=== PATIENT | female | born 1975 | race Caucasian/White ===

== ENCOUNTER 2018-05-07 13:40 | Outpatient (CLI) | payer BC ==
[2018-05-07 14:26] LABS: Appearance,Urine Turbid (Clear); Bilirubin,Urine Negative (Negative); Color,Urine Dark Yellow; Glucose,Urine (UA) Negative (Negative); Ketones,Urine Negative (Negative); Protein,Urine 1+ (Negative); Specific Gravity,Urine 1.019 (1.001-1.035)
[2018-05-07 14:27] LABS: Bacteria,Urine Many /hpf; Blood,Urine Trace (Negative); Calcium Oxalate Crystals,Urine Occasional /hpf; Leukocyte Esterase,Urine Large (Negative); Mucus,Urine Moderate /hpf; Nitrite,Urine Negative (Negative); RBC,Urine 16 /hpf (0-5); Squamous Epithelial Cell,Urine 14 /hpf (0-4); WBC,Urine 88 /hpf (0-5)
[2018-05-07 15:34] LABS: ALT 27 U/L (9-52); AST 23 U/L (14-36); Blood Urea Nitrogen 12 mg/dL (7-17); LDH 515 U/L (313-618); Uric Acid 5.4 mg/dL (3.7-7.4)
[2018-05-07 15:36] LABS: Basophils % (A) 0 %; Eosinophils # (A) 0.1 k/uL (0-0.7); Eosinophils % (A) 0 %; HCT 29.1 % (34.0-46.0); HGB 9.7 gm/dL (11.4-16.0); Lymphocytes # (A) 2.5 k/uL (1.0-4.8); Lymphocytes % (A) 17 %; MCHC 33.1 g/dL (31.0-37.0); MCV 90.7 fL (80.0-100.0); Mean Platelet Volume 7.6; Monocytes # (A) 0.5 k/uL (0-1.0); Monocytes % (A) 3 %; Neutrophils # (A) 11.5 k/uL (1.3-7.7); Neutrophils % (A) 78 %; Platelet Count 375 k/uL (150-450); RBC 3.21 m/uL (3.80-5.40); RDW 14.5 % (11.5-15.5); WBC 14.7 k/uL (3.8-10.6)
[2018-05-07 15:45] VITALS: BP 168/93; PULSE 85; RESP 18; TEMP 98.6
--- NOTE | 2018-05-07 15:53 | US ---
EXAMINATION TYPE: US OB >= 14 wk fetus DATE OF EXAM: 05/07/2018 COMPARISON: None CLINICAL HISTORY: elevated blood pressures, methadone treatment Growth, HTN TECHNIQUE: Transabdominal (TA) GESTATIONAL AGE / DATING Physician Established: (33 weeks/4 days) EDC: 06/21/2018 Dates by Current Scan: (31 weeks/6 days) EDC: 07/03/2018 Beta HCG (if available): Not available at this time SURVEY IUP: Single PLACENTA: Posterior PREVIA: No Previa JO ANN: 16.8 cm Normal CERVICAL LENGTH (transabdominal: norm > 3.0cm): 3.0 cm BIOMETRY PRESENTATION: Vertex LIE: Longitudinal BPD: 8.3 cm 33 weeks / 2 days HC: 29.2 cm 32 weeks / 1 days AC: 28.4 cm 32 weeks / 3 days FL: 6.1 cm 31 weeks / 4 days ESTIMATED WEIGHT IN GRAMS: 1927 grams ESTIMATED WEIGHT IN LBS/OZ: 4 lbs. 4 oz. WEIGHT PERCENTAGE BASED ON ESTABLISHED DATES: 10.9% HC/AC: 1.0 Normal FL/AC: 21.5 Normal HEART RATE: 159 bpm RHYTHM: Normal Single live IUP measuring 31 weeks 6 days. Debris seen within amniotic fluid. IMPRESSION: 1. Single intrauterine gestation in the cephalic presentation estimated at 31 weeks 6 days gestation based on the current ultrasound measurements. 2. Debris-filled amniotic fluid. 3. Cardiac activity measures 159 bpm.
[2018-05-07 16:01] LABS: Amphetamine Screen,Urine Not Detected (NotDetected); Barbiturate Screen,Urine Not Detected (NotDetected); Benzodiazepines Screen,Urine Not Detected (NotDetected); Cocaine Screen,Urine Not Detected (NotDetected); Methadone Screen, Urine Detected (NotDetected); Opiate Screen,Urine Not Detected (NotDetected); Oxycodone Screen, Urine Not Detected (NotDetected); Phencyclidine Screen,Urine Not Detected (NotDetected); Tricyclic Antidepressant,Urine Not Detected (NotDetected); Urn Cannabinoid Scrn Not Detected (NotDetected)
--- NOTE | 2018-05-07 17:44 | P.HPOB ---
History of Present Illness H&P Date: 05/07/18 Chief Complaint: Elevated blood pressure This is a 42-year-old female 1 para 0 with an estimated date of confinement of 06/21/2018, estimated gestational age of 33-4/7 weeks, who presented to labor and delivery triage complaining of elevated blood pressures today. She states her blood pressure was approximately 180/100 at [facility] where she is in treatment on methadone for opioid addiction. She was seen a doctor at [facility] [place] up until about 3 weeks ago and did not have any elevated blood pressures during her care that were significant. She does state she is chronically hypertensive and was on lisinopril prior to . She stopped this when she found out she was . She denies any headaches or blurry vision. She does complain of some nausea and vomiting recently and has been taking Zofran the last couple days for this. She also is on Keflex for a head cold for the last 2 days. Blood work was obtained in triage and all of her labs for preeclampsia were negative. Ultrasound was performed which showed a fetus in the vertex presentation with an estimated weight of 1927 g or 4 lbs. 4 oz. which is at 10.9 percentile. Her fluid level was 16.8 cm with some debris noted within. Since she has been in [place] she did see a nurse at a clinic here in town but has not seen a doctor yet. She is scheduled to see Dr. Gonzalez next Friday. I spoke with Dr. Guadalupe at [facility] in [place] and he has accepted transfer of the patient. He did not feel she needed to be on any medication prior to transfer. Obstetrical history: . Review of Systems Constitutional: Denies chills, Denies fever Eyes: denies blurred vision, denies pain Cardiovascular: Denies chest pain, Denies shortness of breath Respiratory: Denies cough Gastrointestinal: Reports nausea, Reports vomiting Integumentary: Denies pruritus, Denies rash Neurological: Denies numbness, Denies weakness Past Medical History Additional Past Medical History / Comment(s): History of opioid addiction. She was addicted to Vicodin for 10 years but has been on Suboxone since 2009. She was recently started on methadone when she was admitted to [facility]. History of Any Multi-Drug Resistant Organisms: None Reported Additional Past Surgical History / Comment(s): Lithotripsy, back surgery, craniotomy due to brain swelling Smoking Status: Current every day smoker Past Alcohol Use History: None Reported Past Drug Use History: Opiates Medications and Allergies Home Medications Medication Instructions Recorded Confirmed Type Aspirin [Children's Aspirin] 81 mg PO DAILY 05/07/18 05/07/18 History Cephalexin [Keflex] 500 mg PO AC-TID 05/07/18 05/07/18 History Ondansetron [Zofran] 4 mg PO Q8HR PRN MDD nausea 05/07/18 05/07/18 History RX: Methadone [Dolophine] 70 mg PO DAILY 05/07/18 05/07/18 History Allergies Allergy/AdvReac Type Severity Reaction Status Date / Time codeine AdvReac Nausea & Verified 05/07/18 13:55 Vomiting Exam Osteopathic Statement: *. No significant issues noted on an osteopathic structural exam other than those noted in the History and Physical/Consult. Vital Signs Temp Pulse Resp BP 05/07/18 13:59 98.6 F 85 18 168/93 Intake and Output 05/07/18 05/07/18 05/07/18 06:59 14:59 22:59 Other: Weight 73.936 kg Gen.: Well-developed well-nourished female in no acute distress HEENT: Within normal limits Heart: Regular rate and rhythm Lungs: Clear to auscultation bilaterally Abdomen: , nontender heart tones: Reactive with no decelerations. Contractions: Irregular Extremities: Negative Homans Results Result Diagrams: 05/07/18 14:48 05/07/18 14:48 Abnormal Lab Results - Last 24 Hours (Table) 05/07/18 05/07/18 05/07/18 Range/Units 13:56 14:48 15:34 WBC 14.7 H (3.8-10.6) k/uL RBC 3.21 L (3.80-5.40) m/uL Hgb 9.7 L (11.4-16.0) gm/dL Hct 29.1 L (34.0-46.0) % Neutrophils # 11.5 H (1.3-7.7) k/uL Urine Appearance Turbid H (Clear) Urine Protein 1+ H (Negative) Urine Blood Trace H (Negative) Ur Leukocyte Esterase Large H (Negative) Urine RBC 16 H (0-5) /hpf Urine WBC 88 H (0-5) /hpf Ur Squamous Epith Cells 14 H (0-4) /hpf Calcium Oxalate Crystal Occasional H (None) /hpf Urine Bacteria Many H (None) /hpf Urine Mucus Moderate H (None) /hpf U Random Total Protein 39 H (<12) mg/dL Urine Methadone Screen (NotDetected) 05/07/18 Range/Units 15:34 WBC (3.8-10.6) k/uL RBC (3.80-5.40) m/uL Hgb (11.4-16.0) gm/dL Hct (34.0-46.0) % Neutrophils # (1.3-7.7) k/uL Urine Appearance (Clear) Urine Protein (Negative) Urine Blood (Negative) Ur Leukocyte Esterase (Negative) Urine RBC (0-5) /hpf Urine WBC (0-5) /hpf Ur Squamous Epith Cells (0-4) /hpf Calcium Oxalate Crystal (None) /hpf Urine Bacteria (None) /hpf Urine Mucus (None) /hpf U Random Total Protein (<12) mg/dL Urine Methadone Screen Detected H (NotDetected) Assessment and Plan (1) 33 weeks gestation of Current Visit: Yes Status: Acute Code(s): Z3A.33 - 33 WEEKS GESTATION OF SNOMED Code(s): 27248379 (2) Hypertension affecting in third trimester Current Visit: Yes Status: Acute Code(s): O16.3 - UNSPECIFIED MATERNAL HYPERTENSION, THIRD TRIMESTER SNOMED Code(s): 634125732 Plan: Will transfer patient by ambulance to [facility] in [place] care of Dr. Guadalupe. Patient is agreeable to transfer.
--- NOTE | 2018-05-07 17:46 | P.MSEPDOC ---
Presenting Problems - Arrival Data Date of Arrival on Unit: 05/07/18 Time of Arrival on Unit: 13:40 Mode of Transport: Portable - Complaint OB-Reason for Admission/Chief Complaint: PIH Medical History - Information : 1 Para: 0 Term: 0 : 0 Abortions: Spontaneous or Elective: 0 Number of Living Children: 0 - Gestational Age Gestational Age by GIANNA (wks/days): 33 Weeks and 4 Days - History Complications: Chronic HTN, Smoker, Hx. Substance Abuse Comment: opiate addiction now in recovery on methadone Review of Systems - Review of Systems Constitutional: No problems Breast: No problems ENT: No problems Cardiovascular: No problems Respiratory: No problems Gastrointestinal: No problems Genitourinary: Urgency Musculoskeletal: No problems Neurological: No problems Skin: No problems Vital Signs - Temperature Temperature: 98.6 F Temperature Source: Oral - Pulse Right Brachial Pulse Rate: 85 Pulse Assessment Method: Automatic Cuff - Respirations Respiratory Rate: 18 Oxygen Delivery Method: Room Air - Blood Pressure Right Arm Blood Pressure: 168/93 Blood Pressure Mean: 118 Blood Pressure Source: Automatic Cuff Medical Screen Scoring (Pre) - Cervical Exam Dilation: Exam Deferred Effacement: Exam Deferred Membranes: Intact - Uterine Contractions Frequency: > 5 minutes apart = 1 Duration: N/A Intensity: N/A - Maternal Vital Signs Maternal Temperature: N/A Maternal Blood Pressure: Diastolic > 89 = 1 Signs of Preeclampsia: N/A - Pain Assessment Pain Scale Used: Numeric (1 - 10) Pain Intensity: 0 - Assessment Baseline FHR: 125 Heart Rate - NICHD Category: Category I (Normal) = 0 NST: Reactive Position: N/A Station: N/A - Total Score Total Score (Pre): 2 - Level of Risk Level of Risk: Low (0-5) Physician Notification (Pre) - Physician Notified Physician Notified Date: 05/07/18 Physician Notified Time: 14:45 Spoke With: Jaiden New Order Received: Yes ([facility] workup, ultrasound, urine culture, UDS) Physician Notification (Post) - Notification Comment Comment: Dr. Hwang at bedside Disposition - Disposition OB Disposition: Transfer to other dept./facility Discharge Date: 05/07/18 I agree with the RN Medical Screening Exam: Yes Risk & Benefit of care provided described in d/c instruction: Yes Diagnosis: PRE-EXISTING ESSENTIAL HTN COMP , THIRD TRIMESTER
== END 2018-05-07 18:22 ==
LOC: FBPOP 13:40
PROVIDERS: ATTEND Obstetrics & Gynecology
DX: O16.3 Unspecified maternal hypertension, third trimester (principal); Z3A.33 33 weeks gestation of pregnancy
CPT/HCPCS: 59025; 76805; 80306; 81001; 82565; 82570; 83615; 84156; 84450; 84460; 84520; 84550; 85025; 87086; 99215

== ENCOUNTER → 2021-03-21 | Outpatient (CLI) | payer OTHER ==
[2021-03-21 10:27] LABS: Basophils # (A) 0.1 k/uL (0-0.2); Basophils % (A) 1 %; Eosinophils # (A) 0.2 k/uL (0-0.7); Eosinophils % (A) 1 %; HCT 41.6 % (34.0-46.0); HGB 13.1 gm/dL (11.4-16.0); Lymphocytes # (A) 4.6 k/uL (1.0-4.8); Lymphocytes % (A) 30 %; MCH 29.1 pg (25.0-35.0); MCHC 31.5 g/dL (31.0-37.0); MCV 92.2 fL (80.0-100.0); Mean Platelet Volume 6.1; Monocytes # (A) 0.6 k/uL (0-1.0); Monocytes % (A) 4 %; Neutrophils # (A) 9.7 k/uL (1.3-7.7); Neutrophils % (A) 63 %; Platelet Count 763 k/uL (150-450); RBC 4.51 m/uL (3.80-5.40); RDW 14.6 % (11.5-15.5); WBC 15.5 k/uL (3.8-10.6)
[2021-03-21 10:37] LABS: Calcium 10.5 mg/dL (8.4-10.2); Potassium 3.6 mmol/L (3.5-5.1)
[2021-03-21 10:43] LABS: Appearance,Urine Turbid (Clear); Bacteria,Urine Rare /hpf; Bilirubin,Urine Negative (Negative); Blood,Urine Large (Negative); Calcium Oxalate Crystals,Urine Rare /hpf; Color,Urine Yellow; Glucose,Urine (UA) Negative (Negative); Ketones,Urine Negative (Negative); Leukocyte Esterase,Urine Large (Negative); Mucus,Urine Rare /hpf; Nitrite,Urine Negative (Negative); Protein,Urine 2+ (Negative); RBC,Urine >182 /hpf (0-5); Specific Gravity,Urine 1.028 (1.001-1.035); Squamous Epithelial Cell,Urine 26 /hpf (0-4); Urobilinogen,Urine <2.0 mg/dL (<2.0); WBC,Urine 166 /hpf (0-5)
== END | disposition home or self-care (01) ==
LOC: LABPAT 09:46
PROVIDERS: ATTEND Urology
DX: Z01.812 Encounter for preprocedural laboratory examination (principal); N20.0 Calculus of kidney
CPT/HCPCS: 36415; 80048; 81001; 85025; 87086

== ENCOUNTER → 2021-06-01 | Outpatient (CLI) | payer OTHER ==
[2021-06-01 11:55] LABS: Basophils # (A) 0.1 k/uL (0-0.2); Basophils % (A) 1 %; Eosinophils # (A) 0.4 k/uL (0-0.7); Eosinophils % (A) 4 %; HCT 31.5 % (34.0-46.0); HGB 10.2 gm/dL (11.4-16.0); Hypochromasia Slight; Lymphocytes # (A) 2.5 k/uL (1.0-4.8); Lymphocytes % (A) 27 %; MCH 29.3 pg (25.0-35.0); MCHC 32.2 g/dL (31.0-37.0); Mean Platelet Volume 6.7; Monocytes # (A) 0.3 k/uL (0-1.0); Monocytes % (A) 3 %; Neutrophils # (A) 5.8 k/uL (1.3-7.7); Neutrophils % (A) 63 %; Platelet Count 525 k/uL (150-450); RBC 3.47 m/uL (3.80-5.40); RDW 15.4 % (11.5-15.5); WBC 9.1 k/uL (3.8-10.6)
[2021-06-01 12:09] LABS: Appearance,Urine Cloudy (Clear); Bacteria,Urine Rare /hpf; Bilirubin,Urine Negative (Negative); Blood,Urine Trace (Negative); Color,Urine Yellow; Glucose,Urine (UA) Negative (Negative); Ketones,Urine Negative (Negative); Leukocyte Esterase,Urine Large (Negative); Mucus,Urine Rare /hpf; Nitrite,Urine Negative (Negative); PH, Urine 6.5 (5.0-8.0); Protein,Urine Trace (Negative); RBC,Urine 13 /hpf (0-5); Specific Gravity,Urine 1.012 (1.001-1.035); Squamous Epithelial Cell,Urine 11 /hpf (0-4); Urobilinogen,Urine <2.0 mg/dL (<2.0); WBC,Urine >182 /hpf (0-5)
[2021-06-01 12:15] LABS: Calcium 9.5 mg/dL (8.4-10.2); Potassium 3.1 mmol/L (3.5-5.1)
== END | disposition home or self-care (01) ==
LOC: LABPAT 11:22
PROVIDERS: ATTEND Urology
DX: Z01.812 Encounter for preprocedural laboratory examination (principal); N20.0 Calculus of kidney
CPT/HCPCS: 36415; 80048; 81001; 85025; 87086

== ENCOUNTER 2021-06-08 10:17 | Inpatient (IN) | payer OTHER ==
--- NOTE | 2021-06-07 14:55 | P.HPIHPCON ---
History of Present Illness H&P Date: 06/07/21 Chief Complaint: Right renal calculi This is a 45 yo female with hx of right sided partial staghorn, she has hx of recurrent UTI and she is symptomatic from her stone. discussed with her the option of doing PCNL, She agreed to proceed. Discussed the risk of bleeding, infection, injury to nearby organs which include injury to liver, bowel and lung. Discussed risk of anesthesia. She does have history of PCNL in the past, I reviewed her CT with her and discussed some of the stone do appear to be outside the collecting system, discussed it might not be possible to remove the stones. Discussed risk from anesthesia. She understood all risks and agreed to proceed. Consent for Procedure: I have explained the operation/procedure to the patient, including the risks, benefits, side effects, alternative therapies (including not receiving the prop osed treatment or service), the likelihood of the patient achieving his/her goals, and potential recuperation problems for the procedure/sedation/analgesia, as well as any blood products, if indicated. I also explained to the patient the risks, benefits and side effects of the alternatives, as well as the risks related to not receiving the proposed procedure, care, treatment, or services. - Constitutional Constitutional: Denies chills, Denies fever - Cardiovascular Cardiovascular: Denies chest pain, Denies shortness of breath - Gastrointestinal Gastrointestinal: Denies abdominal pain, Denies diarrhea, Denies nausea, Denies vomiting - Genitourinary (Female) Genitourinary: Reports flank pain Past Medical History Past Medical History: Hypertension, Renal Disease Additional Past Medical History / Comment(s): kidney stones, told leaky valve in past but no tx. for, osteoporosis History of Any Multi-Drug Resistant Organisms: C-DIFF Date of last positivie culture/infection: December 2020 MDRO Source:: intestine Past Surgical History: Back Surgery, Orthopedic Surgery Additional Past Surgical History / Comment(s): Lithotripsy, craniotomy due to brain swelling as a 2 y.o., right hip ORIF for fx. Past Anesthesia/Blood Transfusion Reactions: No Reported Reaction Smoking Status: Current every day smoker Medications and Allergies Home Medications Medication Instructions Recorded Confirmed Type Aspirin [Children's Aspirin] 81 mg PO DAILY 05/07/18 06/05/21 History Ondansetron [Zofran] 4 mg PO Q8HR PRN 05/07/18 06/05/21 History Citalopram Hydrobromide [CeleXA] 20 mg PO HS 03/22/21 06/05/21 History Ferrous Sulfate [Iron] 325 mg PO HS 03/22/21 06/05/21 History Gabapentin [Neurontin] 600 mg PO TID 03/22/21 06/05/21 History Ibuprofen [Motrin] 400 mg PO TID 03/22/21 06/05/21 History Lurasidone [Latuda] 40 mg PO HS 03/22/21 06/05/21 History Methadone [Dolophine] 115 mg PO DAILY 03/22/21 06/05/21 History amLODIPine BESYLATE [Norvasc] 2.5 mg PO HS 03/22/21 06/05/21 History traZODone HCL 100 mg PO HS 03/22/21 06/05/21 History Allergies Allergy/AdvReac Type Severity Reaction Status Date / Time codeine AdvReac Nausea & Verified 06/05/21 11:32 Vomiting Surgical - Exam - General no distress, moderate pain - Eyes PERRL, normal ocular movement - ENT normal nares, normal mucosa - Respiratory normal expansion, normal respiratory effort - Abdomen Abdomen: soft, non tender Assessment and Plan Assessment: This is a 45-year-old female history of right-sided renal stone -Or for right PCNL
[~2021-06-08 10:17] MED LIST: DEXAMETHASONE SOD PHOSPHATE 4 MG/ML 1 ML VIAL IV ONE; GENTAMICIN 120 MG in SODIUM CHLORIDE 0.9% 100 ML IVPB PRN; LACTATED RINGERS 1,000 ML IV SCH; MIDAZOLAM 2 MG/2 ML VIAL IV PRN; ONDANSETRON 4 MG/2 ML VIAL IVP ONE; SCOPOLAMINE 1.5MG/72HR PATCH TRANSDERM ONE; fentaNYL (PF) 50 MCG/ML 2 ML AMP IV PRN
--- NOTE | 2021-06-08 10:42 | XR ---
KUB HISTORY: Kidney stones Frontal KUB is correlated to CT scan from outside institution 04/11/2021 Multiple calcifications are overlying the right kidney, partial staghorn calculus in the midpole, pos sible parenchymal calcification at the lower pole, largest measures 17 mm in the midpole. Multiple ca lcifications are smaller overlying the lower pole the left kidney. Postop change noted to the right h ip. There is retained fecal debris throughout the distribution of the colon. Overlying artifacts are noted. No evident bowel obstruction or pneumoperitoneum. IMPRESSION: Bilateral nephrolithiasis.
[2021-06-08] MEDS ORDERED: LIDOCAINE 1% INJ 10MG/ML (20 ML MDV) ONE (11:55)
[2021-06-08] MEDS ORDERED: NEOSTIGMINE 1 MG/ML 10 ML VIAL ONE (11:55)
[2021-06-08] MEDS ORDERED: MIDAZOLAM 2 MG/2 ML VIAL ONE (11:55)
[2021-06-08] MEDS ORDERED: KETAMINE 10 MG/ML 20 ML VIAL ONE (11:55)
[2021-06-08] MEDS ORDERED: WATER FOR INJECTION, STERILE 10 ML VIAL IV ONE (11:55)
[2021-06-08] MEDS ORDERED: SUCCINYLCHOLINE CHLORIDE 100 MG/5 ML SYR IV ONE (11:55)
[2021-06-08] MEDS ORDERED: ePHEDrine SULFATE/0.9% NACL/PF 50 MG/5 ML SYRINGE IV ONE (11:55)
[2021-06-08] MEDS ORDERED: GLYCOPYRROLATE 0.2 MG/ML 2 ML VIAL ONE (11:55)
[2021-06-08] MEDS ORDERED: PROPOFOL 10 MG/ML 20 ML VIAL IV ONE (11:55)
[2021-06-08] MEDS ORDERED: ROCURONIUM 10 MG/ML (5 ML VIAL) IV ONE (11:55)
[2021-06-08] MEDS ORDERED: IOPAMIDOL-370 50ML BTL IRRIGATION ONE ×2 (13:01)
[2021-06-08] MEDS ORDERED: LACTATED RINGERS 1,000 ML IV ONE (14:05)
[2021-06-08] MEDS ORDERED: HYDROmorphone 1 MG/ML 1 ML SYRINGE IVP PRN (14:26)
[2021-06-08] MEDS ORDERED: ONDANSETRON 4 MG TAB PO PRN (14:28)
--- NOTE | 2021-06-08 14:41 | FL ---
EXAMINATION TYPE: FL Perc Nephrostomy New Access DATE OF EXAM: 06/08/2021 COMPARISON: CT from outside institution HISTORY: Right nephrolithiasis. PROCEDURE: Maximal barrier technique was utilized, hand hygiene obtained with soap and water and alcohol-based h and rub. The skin overlying the right kidney was localized using fluoroscopy and the overlying skin prepped and draped. Skin quang was made with a scalpel. Access was gained under fluoroscopy, followin g placement of a ureteral occlusion balloon by the referring clinician and instillation of air in the renal collecting system with a 21-gauge needle to the right kidney lower pole calyx. A suitable pos terior calyx was chosen. A 0.018 inch wire was advanced. The access site was dilated with a transi tional dilator, the catheter could not be advanced centrally and a new access was utilized due to kin k at the distal aspect of the catheter. Catheter was advanced over the in place wire. The access site was upsized. Balloon showed a persistent waist but with some manipulation the waist did not persist and the sheath was advanced centrally. Some intermittent bleeding was noted. Referring clinician perf ormed nephrolithotomy. The patient remained in stable condition. The patient was discharged to ob servation in the care of anesthesia. 2 minutes 30 seconds fluoroscopy time, 2 intraoperative images document the procedure IMPRESSION: STATUS POST NEPHROSTOMY PLACEMENT FOR NEPHROLITHOTOMY WITH FLUOROSCOPIC GUIDANCE. THIS PROCEDURE PER FORMED BY THE UNDERSIGNED.
[2021-06-08] MEDS ORDERED: ONDANSETRON 4 MG/2 ML VIAL ONE (14:48)
[2021-06-08] MEDS ORDERED: ONDANSETRON 4 MG/2 ML VIAL IVP ONE (14:50)
[2021-06-08] MEDS ORDERED: diphenhydrAMINE 50 MG/ML 1 ML VIAL ONE (15:19)
[2021-06-08] MEDS ORDERED: diphenhydrAMINE 50 MG/ML 1 ML VIAL IVP ONE (15:22)
[2021-06-08] MEDS ORDERED: D5-0.45% NACL WITH KCL 20MEQ/L 1,000 ML IV SCH (16:00)
[2021-06-08 16:30] LABS: ALT 11 U/L (4-34); AST 46 U/L (14-36); African American GFR (CKD) >90 (>60 ml/min/1.73 sqM); Albumin 2.9 g/dL (3.5-5.0); Alkaline Phosphatase 69 U/L (38-126); Anion Gap 7 mmol/L; Blood Urea Nitrogen 15 mg/dL (7-17); Calcium 7.4 mg/dL (8.4-10.2); Carbon Dioxide 23 mmol/L (22-30); Chloride 87 mmol/L (98-107); Glucose 194 mg/dL (74-99); Non-African American GFR(CKD) 83 (>60 ml/min/1.73 sqM); Total Bilirubin 1.3 mg/dL (0.2-1.3); Total Protein 5.7 g/dL (6.3-8.2)
[2021-06-08 16:41] LABS: Potassium 3.2 mmol/L (3.5-5.1); Sodium 117 mmol/L (137-145)
[2021-06-08] MEDS ORDERED: HALOPERIDOL LACTATE 5 MG/ML 1 ML VIAL IM PRN (17:03)
[2021-06-08] MEDS: GABAPENTIN 300 MG CAP PO SCH ×2 (17:07→20:15)
--- NOTE | 2021-06-08 17:34 | P.OP ---
Date of Procedure: 06/08/21 Preoperative Diagnosis: right renal calculi Postoperative Diagnosis: same Procedure(s) Performed: Cystoscopy, right ureteral catheterization, nephroscopy, antegrade nephrostogram, nephrostomy tube placement Implants: Nephrostomy access tube Anesthesia: JEN Surgeon: Derrick Green Estimated Blood Loss (ml): 400 Pathology: none sent Condition: stable Disposition: PACU Indications for Procedure: This is a 45 yo female with hx of right sided partial staghorn, she has hx of recurrent UTI and she is symptomatic from her stone. discussed with her the option of doing PCNL, She agreed to proceed. Discussed the risk of bleeding, infection, injury to nearby organs which include injury to liver, bowel and lung. Discussed risk of anesthesia. She does have history of PCNL in the past, I reviewed her CT with her and discussed some of the stone do appear to be outside the collecting system, discussed it might not be possible to remove the stones. Discussed risk from anesthesia. She understood all risks and agreed to proceed. Operative Findings: Significant bleeding upon obtaining access, which limited visualization, of note the stone was visualized but given the significant bleeding and patient became hypotensive the case was aborted Description of Procedure: Patient was brought to the operating room, general anesthesia was induced. She was prepped and draped in sterile fashion and placed in frog-leg position on the stretcher. Next the cystoscope was inserted, cystoscopy was performed showed no abnormality within the bladder. Attention was then carried to the right ureteral orifice, 8-Canadian balloon occluding catheter was passed through the scope and into the kidney. The cystoscope was withdrawn, with the balloon occluding in place. Next 16-Canadian Chawla catheter was placed with return of clear urine, the balloon occlusion catheter and the Chawla were taped. Next patient was positioned in prone position, all pressure points were padded. Access was obtained by Dr. Suárez, please see his portion of the dictation. Once 2 wires were obtained and advanced the NephroMax balloon dilator over the wire, this was inflated under fluoroscopy, the balloon could not be inflated com pletely along the capsule, multiple attempts were made, at this time a hemostat was advanced along the wire, and the scarred area was dilated. Next the balloon was readvanced and reinflated. Next a 30-Canadian sheath was advanced over the balloon dilator under fluoroscopy. But of note there was some difficulty advancing the sheath past the scarred capsule. Once access was obtained, there was significant bleeding noticed, at this time the nephroscope was inserted, renoscopy was performed, the stone was visualized, there was significant bleeding. At this time the NephroMax balloon was re-advanced over the wire, and was inflated to tamponade on the bleeding. The balloon was taken down and there appeared to be significant decrease in the bleeding. At this time the nephroscope was reinserted and the stone was visualized, initially there appeared to be good visualization, but on further manipulation of the nephroscope, additional bleeding was noticed. Given the amount of bleeding it was not felt safe to continue with the procedure, additionally patient was showing signs of hypertension. At this time decision was made to abort the procedure. A 20-Canadian Malecot access catheter was advanced over the wire and into the down into the ureter, position was confirmed on fluoroscopy. Tisseel was also injected along the course of the percutaneous track. At this time the skin was closed using 2-0 silk, and the nephrostomy tube was secured to the catheter using the 2-0 silk. The patient was placed back in a supine position, she was awakened from anesthesia and taken to recovery in stable condition
[2021-06-08 17:39] LABS: Anisocytosis Slight; Basophils # (A) 0.1 k/uL (0-0.2); Basophils % (A) 0 %; Eosinophils % (A) 0 %; HCT 23.8 % (34.0-46.0); Lymphocytes # (A) 2.7 k/uL (1.0-4.8); Lymphocytes % (A) 12 %; MCH 29.1 pg (25.0-35.0); MCHC 33.3 g/dL (31.0-37.0); MCV 87.3 fL (80.0-100.0); Mean Platelet Volume 6.8; Monocytes # (A) 0.7 k/uL (0-1.0); Monocytes % (A) 3 %; Neutrophils # (A) 19.5 k/uL (1.3-7.7); Neutrophils % (A) 84 %; Platelet Count 500 k/uL (150-450); RBC 2.72 m/uL (3.80-5.40); RDW 16.6 % (11.5-15.5); WBC 23.1 k/uL (3.8-10.6)
[2021-06-08 17:41] LABS: African American GFR (CKD) 84 (>60 ml/min/1.73 sqM); Anion Gap 13 mmol/L; Blood Urea Nitrogen 16 mg/dL (7-17); Carbon Dioxide 18 mmol/L (22-30); Chloride 87 mmol/L (98-107); Glucose 240 mg/dL (74-99); HGB 7.9 gm/dL (11.4-16.0); Non-African American GFR(CKD) 73 (>60 ml/min/1.73 sqM)
[2021-06-08 17:50] LABS: Potassium 2.7 mmol/L (3.5-5.1); Sodium 118 mmol/L (137-145)
[2021-06-08 18:05] LABS: Glucose,Whole Blood 256 mg/dL (75-99)
[2021-06-08] MEDS ORDERED: Potassium Replacement Protocol 1 EACH MISC MISCELLANE PRN (18:25)
[2021-06-08] MEDS: POTASSIUM CHLORIDE 10 MEQ in WATER FOR INJECTION 1 100ML.BAG IVPB SCH ×5 (18:59→23:34)
[2021-06-08] MEDS ORDERED: HALOPERIDOL LACTATE 5 MG/ML 1 ML VIAL IVP PRN ×2 (19:27→19:28)
[2021-06-08] MEDS: SODIUM CHLORIDE 0.9% 1,000 ML IV SCH (19:29)
[2021-06-08] MEDS: CITALOPRAM HYDROBROMIDE 20 MG TAB PO SCH (20:15)
[2021-06-08] MEDS: traZODone HCL 100 MG TAB PO SCH (20:15)
[2021-06-08] MEDS: LURASIDONE 40 MG TAB PO SCH (20:15)
[2021-06-08] MEDS: amLODIPine 2.5 MG TAB PO SCH (20:15)
[2021-06-08 20:29] LABS: Glucose,Whole Blood 148 mg/dL (75-99)
[2021-06-08 21:13] LABS: Creatinine,Urine Random 21.3 mg/dL
[2021-06-08 21:21] LABS: Calcium 7.8 mg/dL (8.4-10.2)
[2021-06-08 21:32] LABS: Potassium 3.2 mmol/L (3.5-5.1)
[2021-06-09] MEDS: POTASSIUM CHLORIDE 10 MEQ in WATER FOR INJECTION 1 100ML.BAG IVPB SCH (01:35)
[2021-06-09] MEDS: SODIUM CHLORIDE 0.9% 1,000 ML IV SCH ×4 (01:35→21:28)
[2021-06-09 03:54] LABS: Anisocytosis Slight; Basophils % (A) 0 %; Eosinophils # (A) 0.1 k/uL (0-0.7); Eosinophils % (A) 1 %; Lymphocytes # (A) 1.7 k/uL (1.0-4.8); Lymphocytes % (A) 12 %; MCH 28.9 pg (25.0-35.0); MCHC 34.9 g/dL (31.0-37.0); MCV 82.8 fL (80.0-100.0); Mean Platelet Volume 7.2; Microcytosis Slight; Monocytes # (A) 0.6 k/uL (0-1.0); Monocytes % (A) 5 %; Neutrophils % (A) 81 %; Platelet Count 264 k/uL (150-450); RBC 2.35 m/uL (3.80-5.40); RDW 17.1 % (11.5-15.5); WBC 13.5 k/uL (3.8-10.6)
[2021-06-09 03:59] LABS: HCT 19.5 % (34.0-46.0); HGB 6.8 gm/dL (11.4-16.0)
[2021-06-09 04:32] LABS: Calcium 8.3 mg/dL (8.4-10.2); Potassium 4.3 mmol/L (3.5-5.1)
[2021-06-09] MEDS: GABAPENTIN 300 MG CAP PO SCH ×3 (08:14→19:13)
--- NOTE | 2021-06-09 08:22 | P.PN ---
Progress Note - Text Progress Note Date: 06/09/21 The patient reports mild incisional discomfort. She is awake and alert. Drainage from the nephrostomy tube is bloody. The Chawla catheter is draining clear urine. Sodium level today is 125, and the hemoglobin level of 6.8. She is to receive 2 units of packed RBCs. I explained to her that she will be discharged home with a nephrostomy tube once she is medically stable, and arrangements will be made for her to undergo an elective PCNL through the current nephrostomy tract.
[2021-06-09 08:42] VITALS: BMI 33.6
[2021-06-09] MEDS ORDERED: METHADONE 5 MG TAB PO SCH (09:00)
[2021-06-09] MEDS: METHADONE 10 MG TAB PO SCH (09:36)
[2021-06-09] MEDS: METHADONE 5 MG TAB PO SCH (09:37)
--- NOTE | 2021-06-09 12:40 | P.NPCON ---
History of Present Illness - Reason for Consult Consult date: 06/09/21 hyponatremia - Chief Complaint Recurrent kidney stones - History of Present Illness This is a 45-year-old female is seen in consultation for hyponatremia. She is known with recurrent kidney stones since age 14. She was admitted for a stent placement, which was unsuccessful therefore she had a nephrostomy on the left yesterday. It was draining bloody urine therefore it is clamped. She is making some urine through the Chawla catheter in her bladder She is seen because of hyponatremia, sodium was 117 on admission yesterday and was given IV normal saline and is up to 125 this morning at 3:27 AM. Her urine osmolality was 111 and urine sodium not available as it is a sent out urine creatinine is 21. She was started on IV normal saline at 125 and increased 150/90. The cause of her hyponatremia is likely glycine irrigation during cystoscopy. Patient denies taking excessive amount of fluid prior to her admission to the hospital for this procedure. Her appetite though has been poor. 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 She had multiple procedures done in the past. Past Medical History Past Medical History: Hypertension, Renal Disease Additional Past Medical History / Comment(s): kidney stones, told leaky valve in past but no tx. for, osteoporosis History of Any Multi-Drug Resistant Organisms: C-DIFF Date of last positivie culture/infection: December 2020 MDRO Source:: intestine Past Surgical History: Back Surgery, Orthopedic Surgery Additional Past Surgical History / Comment(s): Lithotripsy, craniotomy due to brain swelling as a 2 y.o., right hip ORIF for fx. Past Anesthesia/Blood Transfusion Reactions: No Reported Reaction Smoking Status: Current every day smoker - Past Family History Father Family Medical History: Coronary Artery Disease (CAD), Myocardial Infarction (CT) Additional Family Medical History / Comment(s): CABG, CT x2 2000 x7 stents total, perm. pacemaker Mother History Unknown: Yes Medications and Allergies Home Medications Medication Instructions Recorded Confirmed Type Aspirin [Children's Aspirin] 81 mg PO DAILY 05/07/18 06/05/21 History Ondansetron [Zofran] 4 mg PO Q8HR PRN 05/07/18 06/05/21 History Citalopram Hydrobromide [CeleXA] 20 mg PO HS 03/22/21 06/05/21 History Ferrous Sulfate [Iron] 325 mg PO HS 03/22/21 06/08/21 History Gabapentin [Neurontin] 600 mg PO TID 03/22/21 06/05/21 History Ibuprofen [Motrin] 400 mg PO TID 03/22/21 06/05/21 History Lurasidone [Latuda] 40 mg PO HS 03/22/21 06/05/21 History Methadone [Dolophine] 115 mg PO DAILY 03/22/21 06/05/21 History amLODIPine BESYLATE [Norvasc] 2.5 mg PO HS 03/22/21 06/05/21 History traZODone HCL 100 mg PO HS 03/22/21 06/05/21 History Allergies Allergy/AdvReac Type Severity Reaction Status Date / Time acetaminophen [From Tylenol] AdvReac Unknown Verified 06/08/21 10:39 codeine AdvReac Nausea & Verified 06/08/21 10:39 Vomiting Physical Exam Vitals: Vital Signs Temp Pulse Pulse Resp BP BP Pulse Ox 06/09/21 11:00 94 21 138/51 06/09/21 10:00 101 H 20 157/76 92 L 06/09/21 09:00 96 17 140/69 91 L 06/09/21 08:00 97 19 158/83 92 L 06/09/21 07:00 92 19 154/81 93 L 06/09/21 06:00 93 22 156/83 92 L 06/09/21 05:00 92 19 152/65 92 L 06/09/21 04:00 97.2 F L 85 15 131/57 93 L 06/09/21 03:00 86 19 149/84 94 L 06/09/21 02:00 92 21 144/80 95 06/09/21 01:00 92 20 134/74 92 L 06/09/21 00:07 96 22 95 06/09/21 00:00 97 F L 86 19 159/96 96 06/08/21 23:00 90 18 138/74 94 L 06/08/21 22:00 90 15 136/79 94 L 06/08/21 21:00 87 17 126/67 93 L 06/08/21 20:00 97.1 F L 99 20 141/108 96 06/08/21 19:00 98 31 H 110/99 97 06/08/21 18:40 105 H 22 94/81 98 06/08/21 18:30 103 H 32 H 136/71 97 06/08/21 18:20 96.8 F L 98 34 H 173/71 96 06/08/21 16:15 98 16 95 06/08/21 16:04 100 16 95 06/08/21 15:47 93 16 154/65 95 06/08/21 15:31 93 16 156/77 100 06/08/21 15:16 94 16 159/81 100 06/08/21 15:00 95 16 132/72 100 06/08/21 14:40 96.9 F L 93 14 194/90 100 Intake and Output 06/08/21 06/09/21 06/09/21 22:59 06:59 14:59 Intake Total 525 1200 750 Output Total 330 1970 1075 Balance 195 -770 -325 Intake: IV 525 1200 750 Sodium Chloride 0.9% 1, 525 1200 750 000 ml @ 150 mls/hr IV . Q6H40M [facility] Rx#:[id number] Output: Drainage 140 Right Abdomen 140 Urine 330 1830 1075 Other: Voiding Method Indwelling Catheter Indwelling Catheter Indwelling Catheter Weight 79.2 kg 83.5 kg 83.5 kg Currently she is awake alert oriented fatigued tired because of lack of sleep and pain. She continues to have pain in her abdomen as well as in the back at the site of the pertinent nephrostomy HEENT exam no JVP neck is supple no facial asymmetry Lungs are clear to auscultation good air entry bilaterally no crackles. Heart sounds unremarkable for any murmur rub gallop Abdomen is somewhat tender although soft there may be some rebound minimally. Bowel sounds though are present Cervix exam reveals no edema Neurologically awake alert oriented Labs done showed as mentioned Results - Lab Results Most recent lab results Calcium 8.3 mg/dL (8.4-10.2) L 06/09/21 03:27 06/09/21 03:36 06/09/21 03:27 Assessment and Plan Assessment: Impression 1. Hyponatremia secondary to cystoscopy associated bladder lavage with possibly glycine containing fluid. Sodium is improving from 117-125 with IV normal saline at 150 an hour. Urine osmolality is 111 urine sodium not available 2. Recurrent kidney stone since age 14, admitted with a staghorn calculus on the left status post attempted stent placement with bleeding. She has a port nephrostomy on the left which is clamped. She has bilateral stones cause is not clear 3. Hemoglobin is 6.8 possible intra-abdominal or retroperitoneal bleeding. More recent hemoglobin prior to admission was 10.2 on 06/01/2021 and 13.1 previously on 03/21/2021. Rule out iron deficiency 4. Mild degree of non-gap acidosis bicarb is 22 and gap is 7. Likely secondary to saline and an element of acute kidney injury Recommendation 1. Continue IV normal saline at 150 an hour and watch for CHF and hypertension 2. In the future she will need 24-hour urine for stone workup 3. Watch sodium frequently but she has difficulty with IV phlebotomies. 4. Check iron saturation and transfuse 1 unit of packed cells if she is continuing to bleed Thank you for this consultation and continue to follow
--- NOTE | 2021-06-09 12:45 | P.CNPUL ---
History of Present Illness Consult date: 06/09/21 Requesting physician: Derrick Green Reason for consult: other Chief complaint: Hyponatremia, anemia. History of present illness: Pulmonary consult dated 06/09/2021. 45-year-old female, who looks much older than her stated age, who was admitted back on June 07. She had a history of right-sided partial staghorn calculi. She also has a history of recurrent urinary tract infections, and she is symptomatic from the stone. The plan was to do a PCNL on the right side. The patient did agree to the procedure. Apparently during the procedure, there was some bleeding. There was partial removal of the right renal calculus. A right nephrostomy tube was placed. The patient apparently had some mental status changes, was noted to have a low-sodium, in the urologist call me to see if we c an monitor the patient more closely in the intensive care unit. Her initial sodium was 117, today, the sodium is 125. Currently, the patient's on room air. The patient's getting saline at 150 mL an hour, and Ancef empirically. Her hemoglobin was 6.8, and 2 units of packed red blood cells were ordered by urology. Labs today show white count 13.5, hemoglobin 6.8, hematocrit 19.5, and platelet count 264,000. Glucose was 86. Sodium 125, potassium 4.3, chlorides 96, CO2 22, anion gap 7, BUN 22, and creatinine 1.15. On June 08, the patient had a nephrostomy tube placement for nephrolithotomy, with fluoroscopic guidance. Review of Systems REVIEW OF SYSTEMS: CONSTITUTIONAL: [Negative.] NEUROLOGIC: [ Negative.] HEENT: [ Negative.] CARDIAC: [Negative.] PULMONARY: [Negative.] GI: [Negative.] : Right flank pain. RHEUMATOLOGIC: [ Negative.] IMMUNOLOGIC: [ Negative.] ENDOCRINE: [Negative. ] DERMATOLOGIC: [Negative.] Past Medical History Past Medical History: Hypertension, Renal Disease Additional Past Medical History / Comment(s): kidney stones, told leaky valve in past but no tx. for, osteoporosis History of Any Multi-Drug Resistant Organisms: C-DIFF Date of last positivie culture/infection: December 2020 MDRO Source:: intestine Past Surgical History: Back Surgery, Orthopedic Surgery Additional Past Surgical History / Comment(s): Lithotripsy, craniotomy due to brain swelling as a 2 y.o., right hip ORIF for fx. Past Anesthesia/Blood Transfusion Reactions: No Reported Reaction Smoking Status: Current every day smoker - Past Family History Father Family Medical History: Coronary Artery Disease (CAD), Myocardial Infarction ([place]) Additional Family Medical History / Comment(s): CABG, [place] x2 2000 x7 stents total, perm. pacemaker Mother History Unknown: Yes Medications and Allergies Home Medications Medication Instructions Recorded Confirmed Type Aspirin [Children's Aspirin] 81 mg PO DAILY 05/07/18 06/05/21 History Ondansetron [Zofran] 4 mg PO Q8HR PRN 05/07/18 06/05/21 History Citalopram Hydrobromide [CeleXA] 20 mg PO HS 03/22/21 06/05/21 History Ferrous Sulfate [Iron] 325 mg PO HS 03/22/21 06/08/21 History Gabapentin [Neurontin] 600 mg PO TID 03/22/21 06/05/21 History Ibuprofen [Motrin] 400 mg PO TID 03/22/21 06/05/21 History Lurasidone [Latuda] 40 mg PO HS 03/22/21 06/05/21 History Methadone [Dolophine] 115 mg PO DAILY 03/22/21 06/05/21 History amLODIPine BESYLATE [Norvasc] 2.5 mg PO HS 03/22/21 06/05/21 History traZODone HCL 100 mg PO HS 03/22/21 06/05/21 History Allergies Allergy/AdvReac Type Severity Reaction Status Date / Time acetaminophen [From Tylenol] AdvReac Unknown Verified 06/08/21 10:39 codeine AdvReac Nausea & Verified 06/08/21 10:39 Vomiting Physical Exam Osteopathic Statement: *. No significant issues noted on an osteopathic structural exam other than those noted in the History and Physical/Consult. Vitals: Vital Signs Temp Pulse Pulse Resp BP BP Pulse Ox 06/09/21 11:00 94 21 138/51 06/09/21 10:00 101 H 20 157/76 92 L 06/09/21 09:00 96 17 140/69 91 L 06/09/21 08:00 97 19 158/83 92 L 06/09/21 07:00 92 19 154/81 93 L 06/09/21 06:00 93 22 156/83 92 L 06/09/21 05:00 92 19 152/65 92 L 06/09/21 04:00 97.2 F L 85 15 131/57 93 L 06/09/21 03:00 86 19 149/84 94 L 06/09/21 02:00 92 21 144/80 95 06/09/21 01:00 92 20 134/74 92 L 06/09/21 00:07 96 22 95 06/09/21 00:00 97 F L 86 19 159/96 96 06/08/21 23:00 90 18 138/74 94 L 06/08/21 22:00 90 15 136/79 94 L 06/08/21 21:00 87 17 126/67 93 L 06/08/21 20:00 97.1 F L 99 20 141/108 96 06/08/21 19:00 98 31 H 110/99 97 06/08/21 18:40 105 H 22 94/81 98 06/08/21 18:30 103 H 32 H 136/71 97 06/08/21 18:20 96.8 F L 98 34 H 173/71 96 06/08/21 16:15 98 16 95 06/08/21 16:04 100 16 95 06/08/21 15:47 93 16 154/65 95 06/08/21 15:31 93 16 156/77 100 06/08/21 15:16 94 16 159/81 100 06/08/21 15:00 95 16 132/72 100 06/08/21 14:40 96.9 F L 93 14 194/90 100 Intake and Output 06/08/21 06/09/21 06/09/21 22:59 06:59 14:59 Intake Total 525 1200 750 Output Total 330 1970 1075 Balance 195 770 -325 Intake: IV 525 1200 750 Sodium Chloride 0.9% 1, 525 1200 750 000 ml @ 150 mls/hr IV . Q6H40M [facility] Rx#:[id number] Output: Drainage 140 Right Abdomen 140 Urine 330 1830 1075 Other: Voiding Method Indwelling Catheter Indwelling Catheter Indwelling Catheter Weight 79.2 kg 83.5 kg 83.5 kg No acute distress, oriented 3. Currently on room air. HEENT examination is grossly unremarkable. Neck supple. Full range of motion. No adenopathy thyromegaly or neck vein distention. Cardiovascular examination reveals regular rhythm rate. S1-S2 normal. No S3 or S4. No discernible murmur noted. Heart rate 94 bpm. Lungs reveal clear breath sounds. Breath sounds are equal bilaterally. No adventitious lung sounds including wheezes rhonchi or crackles. Abdomen soft bowel sounds are heard. No masses or tenderness. Extremities are intact. No cyanosis clubbing or edema. Skin is without rash or lesion. Neurologic examination is brief but nonfocal. Results - Laboratory Findings CBC and BMP: 06/09/21 03:36 06/09/21 03:27 Abnormal lab findings: Abnormal Labs 06/08/21 06/08/21 06/08/21 10:55 15:20 17:21 WBC 23.1 H RBC 2.72 L Hgb 7.9 L D Hct 23.8 L RDW 16.6 H Plt Count 500 H Neutrophils # 19.5 H Sodium 117 L* Potassium 3.4 L 3.2 L Chloride 87 L Carbon Dioxide BUN Creatinine Glucose 194 H POC Glucose (mg/dL) Calcium 7.4 L AST 46 H Total Protein 5.7 L Albumin 2.9 L 06/08/21 06/08/21 06/08/21 17:21 18:04 20:17 WBC RBC Hgb Hct RDW Plt Count Neutrophils # Sodium 118 L* Potassium 2.7 L* Chloride 87 L Carbon Dioxide 18 L BUN Creatinine Glucose 240 H POC Glucose (mg/dL) 256 H 148 H Calcium 8.0 L AST Total Protein Albumin 06/08/21 06/09/21 06/09/21 20:53 01:15 03:27 WBC RBC Hgb Hct RDW Plt Count Neutrophils # Sodium 119 L* 121 L 125 L Potassium 3.2 L Chloride 87 L 96 L Carbon Dioxide 19 L BUN 19 H 22 H Creatinine 1.15 H 1.15 H Glucose 110 H POC Glucose (mg/dL) Calcium 7.8 L 8.3 L AST Total Protein Albumin 06/09/21 03:36 WBC 13.5 H RBC 2.35 L Hgb 6.8 L* Hct 19.5 L* RDW 17.1 H Plt Count Neutrophils # 11.0 H Sodium Potassium Chloride Carbon Dioxide BUN Creatinine Glucose POC Glucose (mg/dL) Calcium AST Total Protein Albumin Assessment and Plan Assessment: Postop day #1, status post PCNL for right-sided staghorn stone, complicated by hyponatremia, mental status changes, bleeding, and anemia. Status post right sided nephrostomy tube. Hyponatremia, much improved. History of hypertension. History of bilateral kidney stones. History of valvular heart disease. History of osteoporosis. History of C. difficile colitis. Plan: Plan dated 06/09/2021. The patient's doing much better. A unit of blood has been ordered for her anemia. Her sodium is much improved at 125. Her mental status is improved is wall. She is hemodynamically stable. We'll continue to follow. Possible discharge from the hospital tomorrow according to urology. No additional r ecommendations are made. The right nephrostomy tube remains in place. Time with Patient: Greater than 30
[2021-06-09 12:57] LABS: Anisocytosis Slight; Basophils % (A) 0 %; Eosinophils % (A) 0 %; HCT 20.3 % (34.0-46.0); Lymphocytes # (A) 0.9 k/uL (1.0-4.8); Lymphocytes % (A) 9 %; MCH 28.2 pg (25.0-35.0); MCV 85.5 fL (80.0-100.0); Mean Platelet Volume 6.4; Monocytes # (A) 0.5 k/uL (0-1.0); Monocytes % (A) 5 %; Neutrophils # (A) 8.1 k/uL (1.3-7.7); Neutrophils % (A) 84 %; Platelet Count 441 k/uL (150-450); RBC 2.37 m/uL (3.80-5.40); RDW 17.6 % (11.5-15.5); WBC 9.6 k/uL (3.8-10.6)
[2021-06-09 13:01] LABS: HGB 6.7 gm/dL (11.4-16.0)
--- NOTE | 2021-06-09 17:06 | P.CONS ---
History of Present Illness - Reason for Consult Consult date: 06/09/21 Medical management - Chief Complaint Right-sided staghorn calculi - History of Present Illness 45-year-old female, who looks much older than her stated age, who was admitted back on June 07. She had a history of right-sided partial staghorn calculi. She also has a history of recurrent urinary tract infections, and she is symptomatic from the stone. The plan was to do a PCNL on the right side. The patient did agree to the procedure. Apparently during the procedure, there was some bleeding. There was partial removal of the right renal calculus. A right nephrostomy tube was placed. The patient apparently had some mental status changes, was noted to have a low-sodium, in the urologist call me to see if we can monitor the patient more closely in the intensive care unit. Her initial sodium was 117, today, the sodium is 125. Review of Systems REVIEW OF SYSTEMS: CONSTITUTIONAL: No fever, no malaise, no fatigue. HEENT: No recent visual problems or hearing problems. Denied any sore throat. CARDIOVASCULAR: No chest pain, orthopnea, PND, no palpitations, no syncope. PULMONARY: No shortness of breath, no cough, no hemoptysis. GASTROINTESTINAL: No diarrhea, no nausea, no vomiting, no abdominal pain. NEUROLOGICAL: No headaches, no weakness, no numbness. HEMATOLOGICAL: Denies any bleeding or petechiae. GENITOURINARY: Denies any burning micturition, frequency, or urgency. MUSCULOSKELETAL/RHEUMATOLOGICAL: Denies any joint pain, swelling, or any muscle pain. ENDOCRINE: Denies any polyuria or polydipsia. The rest of the 14-point review of systems is negative. Past Medical History Past Medical History: Hypertension, Renal Disease Additional Past Medical History / Comment(s): kidney stones, told leaky valve in past but no tx. for, osteoporosis History of Any Multi-Drug Resistant Organisms: C-DIFF Year Discovered:: December 2020 MDRO Source:: intestine Past Surgical History: Back Surgery, Orthopedic Surgery Additional Past Surgical History / Comment(s): Lithotripsy, craniotomy due to brain swelling as a 2 y.o., right hip ORIF for fx. Past Anesthesia/Blood Transfusion Reactions: No Reported Reaction Smoking Status: Current every day smoker - Past Family History Father Family Medical History: Coronary Artery Disease (CAD), Myocardial Infarction ([place]) Additional Family Medical History / Comment(s): CABG, [place] x2 2000 x7 stents total, perm. pacemaker Mother History Unknown: Yes Medications and Allergies Home Medications Medication Instructions Recorded Confirmed Type Aspirin [Children's Aspirin] 81 mg PO DAILY 05/07/18 06/05/21 History Ondansetron [Zofran] 4 mg PO Q8HR PRN 05/07/18 06/05/21 History Citalopram Hydrobromide [CeleXA] 20 mg PO HS 03/22/21 06/05/21 History Ferrous Sulfate [Iron] 325 mg PO HS 03/22/21 06/08/21 History Gabapentin [Neurontin] 600 mg PO TID 03/22/21 06/05/21 History Ibuprofen [Motrin] 400 mg PO TID 03/22/21 06/05/21 History Lurasidone [Latuda] 40 mg PO HS 03/22/21 06/05/21 History Methadone [Dolophine] 115 mg PO DAILY 03/22/21 06/05/21 History amLODIPine BESYLATE [Norvasc] 2.5 mg PO HS 03/22/21 06/05/21 History traZODone HCL 100 mg PO HS 03/22/21 06/05/21 History Allergies Allergy/AdvReac Type Severity Reaction Status Date / Time acetaminophen [From Tylenol] AdvReac Unknown Verified 06/08/21 10:39 codeine AdvReac Nausea & Verified 06/08/21 10:39 Vomiting Physical Exam Vitals: Vital Signs Temp Pulse Pulse Resp BP BP Pulse Ox 06/09/21 14:09 99.5 F 92 16 134/72 92 L 06/09/21 14:00 101 H 19 132/71 90 L 06/09/21 13:59 99.5 F 93 16 119/61 95 06/09/21 13:00 94 17 115/48 91 L 06/09/21 12:00 99.5 F 105 H 19 117/62 94 L 06/09/21 11:00 94 21 138/51 06/09/21 10:00 101 H 20 157/76 92 L 06/09/21 09:00 96 17 140/69 91 L 06/09/21 08:00 97 19 158/83 92 L 06/09/21 07:00 92 19 154/81 93 L 06/09/21 06:00 93 22 156/83 92 L 06/09/21 05:00 92 19 152/65 92 L 06/09/21 04:00 97.2 F L 85 15 131/57 93 L 06/09/21 03:00 86 19 149/84 94 L 06/09/21 02:00 92 21 144/80 95 06/09/21 01:00 92 20 134/74 92 L 06/09/21 00:07 96 22 95 06/09/21 00:00 97 F L 86 19 159/96 96 06/08/21 23:00 90 18 138/74 94 L 06/08/21 22:00 90 15 136/79 94 L 06/08/21 21:00 87 17 126/67 93 L 06/08/21 20:00 97.1 F L 99 20 141/108 96 06/08/21 19:00 98 31 H 110/99 97 06/08/21 18:40 105 H 22 94/81 98 06/08/21 18:30 103 H 32 H 136/71 97 06/08/21 18:20 96.8 F L 98 34 H 173/71 96 06/08/21 16:15 98 16 95 06/08/21 16:04 100 16 95 06/08/21 15:47 93 16 154/65 95 06/08/21 15:31 93 16 156/77 100 06/08/21 15:16 94 16 159/81 100 06/08/21 15:00 95 16 132/72 100 06/08/21 14:40 96.9 F L 93 14 194/90 100 Intake and Output 06/08/21 06/09/21 06/09/21 22:59 06:59 14:59 Intake Total 525 1200 1370 Output Total 330 1970 1525 Balance 195 -770 -155 Intake: IV 525 1200 1200 Sodium Chloride 0.9% 1, 525 1200 1200 000 ml @ 150 mls/hr IV . Q6H40M [facility] Rx#:[id number] Intake, IV Titration 50 Amount ceFAZolin 2 gm In Sodium 50 Chloride 0.9% 50 ml @ 100 mls/hr IVPB Q8H [facility] Rx#: [id number] Oral 120 Blood Product 0 Rc As-1 Unit 0 [id number] Output: Drainage 140 Right Abdomen 140 Urine 330 1830 1525 Other: Voiding Method Indwelling Catheter Indwelling Catheter Indwelling Catheter Weight 79.2 kg 83.5 kg 83.5 kg General appearance: Present: average body habitus, cooperative, no acute distress Eyes: Present: anicteric sclerae, EOMI, PERRLA, normal appearance Neck: Present: normal ROM. Absent: lymphadenopathy, rigidity, thyromegaly Carotids: negative: bruit present Thyroid: bilateral: normal size, negative: enlarged, nodule Respiratory: bilateral: CTA, negative: rales, rhonchi, wheezing - Cardiovascular Rhythm: regular Heart sounds: normal: S1, S2 General gastrointestinal: Present: normal bowel sounds, soft. Absent: distended, organomegaly, tenderness Genitourinary Comment(s): deferred Integumentary: Present: normal turgor. Absent: jaundiced, rash, ulcer Neurologic: Present: CNII-XII intact. Absent: focal deficits Musculoskeletal: Present: gait normal, strength equal bilaterally Results CBC & Chem 7: 06/09/21 12:19 06/09/21 03:27 Labs: Abnormal Lab Results - Last 24 Hours (Table) 06/08/21 06/08/21 06/08/21 Range/Units 15:20 17:21 17:21 WBC 23.1 H (3.8-10.6) k/uL RBC 2.72 L (3.80-5.40) m/uL Hgb 7.9 L D (11.4-16.0) gm/dL Hct 23.8 L (34.0-46.0) % RDW 16.6 H (11.5-15.5) % Plt Count 500 H (150-450) k/uL Neutrophils # 19.5 H (1.3-7.7) k/uL Lymphocytes # (1.0-4.8) k/uL Sodium 117 L* 118 L* (137-145) mmol/L Potassium 3.2 L 2.7 L* (3.5-5.1) mmol/L Chloride 87 L 87 L (98-107) mmol/L Carbon Dioxide 18 L (22-30) mmol/L BUN (7-17) mg/dL Creatinine (0.52-1.04) mg/dL Glucose 194 H 240 H (74-99) mg/dL POC Glucose (mg/dL) (75-99) mg/dL Calcium 7.4 L 8.0 L (8.4-10.2) mg/dL AST 46 H (14-36) U/L Total Protein 5.7 L (6.3-8.2) g/dL Albumin 2.9 L (3.5-5.0) g/dL Crossmatch 06/08/21 06/08/21 06/08/21 Range/Units 18:04 20:17 20:53 WBC (3.8-10.6) k/uL RBC (3.80-5.40) m/uL Hgb (11.4-16.0) gm/dL Hct (34.0-46.0) % RDW (11.5-15.5) % Plt Count (150-450) k/uL Neutrophils # (1.3-7.7) k/uL Lymphocytes # (1.0-4.8) k/uL Sodium 119 L* (137-145) mmol/L Potassium 3.2 L (3.5-5.1) mmol/L Chloride 87 L (98-107) mmol/L Carbon Dioxide 19 L (22-30) mmol/L BUN 19 H (7-17) mg/dL Creatinine 1.15 H (0.52-1.04) mg/dL Glucose 110 H (74-99) mg/dL POC Glucose (mg/dL) 256 H 148 H (75-99) mg/dL Calcium 7.8 L (8.4-10.2) mg/dL AST (14-36) U/L Total Protein (6.3-8.2) g/dL Albumin (3.5-5.0) g/dL Crossmatch 06/09/21 06/09/21 06/09/21 Range/Units 01:15 03:27 03:36 WBC 13.5 H (3.8-10.6) k/uL RBC 2.35 L (3.80-5.40) m/uL Hgb 6.8 L* (11.4-16.0) gm/dL Hct 19.5 L* (34.0-46.0) % RDW 17.1 H (11.5-15.5) % Plt Count (150-450) k/uL Neutrophils # 11.0 H (1.3-7.7) k/uL Lymphocytes # (1.0-4.8) k/uL Sodium 121 L 125 L (137-145) mmol/L Potassium (3.5-5.1) mmol/L Chloride 96 L (98-107) mmol/L Carbon Dioxide (22-30) mmol/L BUN 22 H (7-17) mg/dL Creatinine 1.15 H (0.52-1.04) mg/dL Glucose (74-99) mg/dL POC Glucose (mg/dL) (75-99) mg/dL Calcium 8.3 L (8.4-10.2) mg/dL AST (14-36) U/L Total Protein (6.3-8.2) g/dL Albumin (3.5-5.0) g/dL Crossmatch 06/09/21 06/09/21 Range/Units 12:19 12:19 WBC (3.8-10.6) k/uL RBC 2.37 L (3.80-5.40) m/uL Hgb 6.7 L* (11.4-16.0) gm/dL Hct 20.3 L (34.0-46.0) % RDW 17.6 H (11.5-15.5) % Plt Count (150-450) k/uL Neutrophils # 8.1 H (1.3-7.7) k/uL Lymphocytes # 0.9 L (1.0-4.8) k/uL Sodium (137-145) mmol/L Potassium (3.5-5.1) mmol/L Chloride (98-107) mmol/L Carbon Dioxide (22-30) mmol/L BUN (7-17) mg/dL Creatinine (0.52-1.04) mg/dL Glucose (74-99) mg/dL POC Glucose (mg/dL) (75-99) mg/dL Calcium (8.4-10.2) mg/dL AST (14-36) U/L Total Protein (6.3-8.2) g/dL Albumin (3.5-5.0) g/dL Crossmatch See Detail Assessment and Plan Assessment: 1. Status post PCNL for right-sided staghorn stone; complicated by hyponatremia, mental status changes, bleeding, and anemia - Status post right nephrostomy tube; patient is POD #1; your management 2. Hyponatremia; continues to improve and is at 125 this morning; we will salvador nue to monitor electrolytes closely 3. Hypertension; continue to blood pressure closely with plans to see him home medications once patient is stable 4. History of valvular heart disease; stable DVT prophylaxis; SCDs CODE STATUS; full code
[2021-06-09] MEDS: amLODIPine 2.5 MG TAB PO SCH (21:28)
[2021-06-09] MEDS: traZODone HCL 100 MG TAB PO SCH (21:28)
[2021-06-09] MEDS: CITALOPRAM HYDROBROMIDE 20 MG TAB PO SCH (21:28)
[2021-06-09] MEDS: LURASIDONE 40 MG TAB PO SCH (21:28)
[2021-06-10] MEDS: GABAPENTIN 300 MG CAP PO SCH ×2 (01:33→07:59)
[2021-06-10 04:01] LABS: Calcium 8.3 mg/dL (8.4-10.2); Potassium 3.5 mmol/L (3.5-5.1)
[2021-06-10 04:02] LABS: Anisocytosis Slight; HCT 25.5 % (34.0-46.0); MCH 29.6 pg (25.0-35.0); MCHC 33.8 g/dL (31.0-37.0); MCV 87.7 fL (80.0-100.0); Platelet Count 380 k/uL (150-450); Poikilocytosis Moderate; RDW 16.7 % (11.5-15.5); WBC 12.2 k/uL (3.8-10.6)
[2021-06-10 04:17] LABS: HGB 8.6 gm/dL (11.4-16.0)
[2021-06-10] MEDS: SODIUM CHLORIDE 0.9% 1,000 ML IV SCH (04:48)
[2021-06-10] MEDS: POTASSIUM CHLORIDE ER 20 MEQ TAB.ER PO SCH ×2 (06:55→07:59)
[2021-06-10 07:02] VITALS: RESP 15
[2021-06-10] MEDS: METHADONE 5 MG TAB PO SCH (08:00)
[2021-06-10] MEDS: METHADONE 10 MG TAB PO SCH (08:00)
[2021-06-10] MEDS ORDERED: FUROSEMIDE 10 MG/ML 4 ML VIAL IV STA (08:44)
[2021-06-10 09:42] LABS: % Iron Saturation 3.63 (12.00-45.00)
[2021-06-10 10:32] VITALS: TEMP 98.3
--- NOTE | 2021-06-10 10:46 | P.PN ---
Progress Note - Text Progress Note Date: 06/10/21 The patient is POD #2, s/p attempted right percutaneous nephrolithotomy complicated by bleeding and hyponatremia. Her hemoglobin and sodium levels this morning are 8.6 at 135, respectively. She has no complaints. The Chawla catheter is draining clear yellow urine. The nephrostomy tube was then clamped to tamp another renal bleeding. I unclamped the nephrostomy tube this morning and it will remain unclamped unless the bleeding resumes. Discharge home later today is anticipated.
--- NOTE | 2021-06-10 11:14 | P.PN ---
Subjective Progress Note Date: 06/10/21 Principal diagnosis: Hyponatremia. Pulmonary consult dated 06/09/2021. 45-year-old female, who looks much older than her stated age, who was admitted back on June 07. She had a history of right-sided partial staghorn calculi. She also has a history of recurrent urinary tract infections, and she is symptomatic from the stone. The plan was to do a PCNL on the right side. The patient did agree to the procedure. Apparently during the procedure, there was some bleeding. There was partial removal of the right renal calculus. A right nephrostomy tube was placed. The patient apparently had some mental status changes, was noted to have a low-sodium, in the urologist call me to see if we can monitor the patient more closely in the intensive care unit. Her initial s odium was 117, today, the sodium is 125. Currently, the patient's on room air. The patient's getting saline at 150 mL an hour, and Ancef empirically. Her hemoglobin was 6.8, and 2 units of packed red blood cells were ordered by urology. Labs today show white count 13.5, hemoglobin 6.8, hematocrit 19.5, and platelet count 264,000. Glucose was 86. Sodium 125, potassium 4.3, chlorides 96, CO2 22, anion gap 7, BUN 22, and creatinine 1.15. On June 08, the patient had a nephrostomy tube placement for nephrolithotomy, with fluoroscopic guidance. Progress note dated June 20. 45-year-old female, who had a right-sided staghorn calculi. She underwent a percutaneous nephrolithotomy on the right side. Apparently there was some bleeding during the procedure. She was placed in the ICU for further monitoring. She was also found to be hyponatremic. Her initial sodium was 117. Currently, she is doing better. She's on 2 L nasal cannula. Her saline is running at 150 mL an hour. We'll stop the IV. The patient has gotten 2 units of packed red blood cells. Sodium today is 135, hemoglobin 8.6. We are going to give her Lasix 40 mg IV push. We'll get her up in a chair. She can be transferred out to the general medical floor or possibly discharged home later today. White count 12.2, hemoglobin 8.6, hematocrit 25.5, and platelet count is 380,000. Sodium 135, potassium 3.5, chlorides 110, CO2 20, anion gap 5, BUN 19, with a creatinine of 0.96. No chest x-ray today. Objective - Vital Signs Vital signs: Vital Signs Temp 98.3 F 06/10/21 08:00 Pulse 68 06/10/21 10:00 Resp 15 06/10/21 07:00 BP 107/62 06/10/21 10:00 Pulse Ox 96 06/10/21 10:00 Intake & Output 06/09/21 06/10/21 06/10/21 18:59 06:59 18:59 Intake Total 2890 2950 580 Output Total 1850 1045 355 Balance 1040 1905 225 Weight 83.5 kg 84 kg Intake: IV 1500 1850 340 Sodium Chloride 0.9% 1, 1500 1800 340 000 ml @ 150 mls/hr IV . Q6H40M [facility] Rx#:[id number] ceFAZolin 2 gm In Sodium 50 Chloride 0.9% 50 ml @ 100 mls/hr IVPB Q8H [facility] Rx#: [id number] Intake, IV Titration 50 Amount ceFAZolin 2 gm In Sodium 50 Chloride 0.9% 50 ml @ 100 mls/hr IVPB Q8H [facility] Rx#: [id number] Oral 120 1100 240 Blood Product 1220 Rc As-1 Unit 310 [id number] Rc Pheresis 2 As3 Unit 310 [id number] Output: Urine 1850 1045 355 Other: Voiding Method Indwelling Catheter Indwelling Catheter Indwelling Catheter - Exam No acute distress, oriented 3. Currently on 2 L. Saturations are excellent. HEENT examination is grossly unremarkable. Neck supple. Full range of motion. No adenopathy thyromegaly or neck vein distention. Cardiovascular examination reveals regular rhythm rate. S1-S2 normal. No S3 or S4. No discernible murmur noted. Heart rate 68 bpm. Lungs reveal clear breath sounds. Breath sounds are equal bilaterally. No adventitious lung sounds including wheezes rhonchi or crackles. Abdomen soft bowel sounds are heard. No masses or tenderness. Extremities are intact. No cyanosis clubbing or edema. Skin is without rash or lesion. Neurologic examination is brief but nonfocal. - Labs CBC & Chem 7: 06/10/21 03:08 06/10/21 03:08 Labs: Abnormal Lab Results - Last 24 Hours (Table) 06/09/21 06/09/21 06/10/21 Range/Units 12:19 12:19 03:08 WBC (3.8-10.6) k/uL RBC 2.37 L (3.80-5.40) m/uL Hgb 6.7 L* (11.4-16.0) gm/dL Hct 20.3 L (34.0-46.0) % RDW 17.6 H (11.5-15.5) % Neutrophils # 8.1 H (1.3-7.7) k/uL Lymphocytes # 0.9 L (1.0-4.8) k/uL Sodium (137-145) mmol/L Chloride (98-107) mmol/L Carbon Dioxide (22-30) mmol/L BUN (7-17) mg/dL Calcium (8.4-10.2) mg/dL Iron 11 L (50-170) ug/dL % Saturation 3.63 L (12.00-45.00) Crossmatch See Detail 06/10/21 06/10/21 Range/Units 03:08 03:08 WBC 12.2 H (3.8-10.6) k/uL RBC 2.90 L (3.80-5.40) m/uL Hgb 8.6 L D (11.4-16.0) gm/dL Hct 25.5 L (34.0-46.0) % RDW 16.7 H (11.5-15.5) % Neutrophils # (1.3-7.7) k/uL Lymphocytes # (1.0-4.8) k/uL Sodium 135 L (137-145) mmol/L Chloride 110 H (98-107) mmol/L Carbon Dioxide 20 L (22-30) mmol/L BUN 19 H (7-17) mg/dL Calcium 8.3 L (8.4-10.2) mg/dL Iron (50-170) ug/dL % Saturation (12.00-45.00) Crossmatch Assessment and Plan Assessment: Postop day #2, status post PCNL for right-sided staghorn stone, complicated by hyponatremia, mental status changes, bleeding, and anemia. Status post right sided nephrostomy tube. Postoperative anemia, status post 2 units of packed red blood cells. Hyponatremia, much improved. History of hypertension. History of bilateral kidney stones. History of valvular heart disease. History of osteoporosis. History of C. difficile colitis. Plan: Plan dated 06/09/2021. The patient's doing much better. A unit of blood has been ordered for her anemia. Her sodium is much improved at 125. Her mental status is improved is wall. She is hemodynamically stable. We'll continue to follow. Possible discharge from the hospital tomorrow according to urology. No additional recommendations are made. The right nephrostomy tube remains in place. Plan dated 06/20/2021. Currently, the patient's doing much better. She did receive 2 units of blood. The patient will have her IV turned off. The patient's sodium today is 135. Hemoglobin 8.6. The patient is way ahead on fluids. We give her 40 of Lasix IV push. We'll get her up in the chair. The patient could be transferred to the general medical for. There might be some consideration to possible discharge. We'll leave that up to urology. No additional recommendations are made. Prognosis is guarded. Time with Patient: Less than 30
--- NOTE | 2021-06-10 13:15 | P.PN ---
Subjective Progress Note Date: 06/10/21 Principal diagnosis: Is a 45-year-old female seen in consultation because of hyponatremia induced by cystoscopy and a bladder wash with glycine containing solution. The cystoscopy was indicated for attempted ureteral stent and lithotripsy. The bleeding that time was abandoned and she had a percutaneous nephrostomy, Which bled. The blood product nephrostomy was therefore clamped.and this morning has been unclamped and opened by the urologist. Urine remains somewhat bloody. She has a Chawla catheter which is draining clear urine. Sodium improved with IV normal saline to 135 this morning from 117. Patient known with recurrent kidney stones with bilateral stones and a staghorn calculus in the left kidney. Patient is awake and alert and oriented. She has some abdominal pain yesterday that has resolved. Objective - Vital Signs Vital signs: Vital Signs Temp 98.3 F 06/10/21 08:00 Pulse 67 06/10/21 11:00 Resp 15 06/10/21 07:00 BP 103/57 06/10/21 11:00 Pulse Ox 96 06/10/21 11:00 Intake & Output 06/09/21 06/10/21 06/10/21 18:59 06:59 18:59 Intake Total 2890 2950 670 Output Total 1850 1045 925 Balance 1040 1905 -255 Weight 83.5 kg 84 kg Intake: IV 1500 1850 430 Sodium Chloride 0.9% 1, 1500 1800 380 000 ml @ 150 mls/hr IV . Q6H40M [facility] Rx#:[id number] ceFAZolin 2 gm In Sodium 50 50 Chloride 0.9% 50 ml @ 100 mls/hr IVPB Q8H [facility] Rx#: [id number] Intake, IV Titration 50 Amount ceFAZolin 2 gm In Sodium 50 Chloride 0.9% 50 ml @ 100 mls/hr IVPB Q8H [facility] Rx#: [id number] Oral 120 1100 240 Blood Product 1220 Rc As-1 Unit 310 [id number] Rc Pheresis 2 As3 Unit 310 [id number] Output: Urine 1850 1045 925 Other: Voiding Method Indwelling Catheter Indwelling Catheter Indwelling Catheter Exam general awake alert oriented comfortable Lungs are clear to auscultation good air entry bilaterally Heart sounds unremarkable Abdomen soft nontender Extremity exam reveals trace edema Neurologically awake alert oriented - Labs CBC & Chem 7: 06/10/21 03:08 06/10/21 03:08 Labs: Abnormal Lab Results - Last 24 Hours (Table) 06/09/21 06/10/21 06/10/21 Range/Units 12:19 03:08 03:08 WBC 12.2 H (3.8-10.6) k/uL RBC 2.90 L (3.80-5.40) m/uL Hgb 8.6 L D (11.4-16.0) gm/dL Hct 25.5 L (34.0-46.0) % RDW 16.7 H (11.5-15.5) % Sodium (137-145) mmol/L Chloride (98-107) mmol/L Carbon Dioxide (22-30) mmol/L BUN (7-17) mg/dL Calcium (8.4-10.2) mg/dL Iron 11 L (50-170) ug/dL % Saturation 3.63 L (12.00-45.00) Crossmatch See Detail 06/10/21 Range/Units 03:08 WBC (3.8-10.6) k/uL RBC (3.80-5.40) m/uL Hgb (11.4-16.0) gm/dL Hct (34.0-46.0) % RDW (11.5-15.5) % Sodium 135 L (137-145) mmol/L Chloride 110 H (98-107) mmol/L Carbon Dioxide 20 L (22-30) mmol/L BUN 19 H (7-17) mg/dL Calcium 8.3 L (8.4-10.2) mg/dL Iron (50-170) ug/dL % Saturation (12.00-45.00) Crossmatch Assessment and Plan Assessment: Impression 1. Hyponatremia secondary to cystoscopy associated bladder lavage with possibly glycine containing fluid. Sodium is improving from 117-125 with IV normal saline at 150 an hour. Urine osmolality is 111 urine sodium not available. Sodium has improved for the sodium to 135 this morning further this morning to 135 and creatinine has improved from 1.15-0.96. 2. Recurrent kidney stone since age 14, admitted with a staghorn calculus on the left status post attempted stent placement with bleeding. She has a port nephrostomy on the left which is clamped. She has bilateral stones cause is not clear 3. Hemoglobin is 6.8 possible intra-abdominal or retroperitoneal bleeding. More recent hemoglobin prior to admission was 10.2 on 06/01/2021 and 13.1 previously on 03/21/2021. Hemoglobin improved to 8.6 this morning, posttransfusion. Rule out iron deficiency 4. Mild degree of non-gap acidosis bicarb is 22 and gap is 7. This morning labs show bicarb is 20 and gap is 5 Likely secondary to saline and an element of acute kidney injury Recommendation 1. Maintain discontinue IV fluids. 2. As an outpatient if it 24-hour urine have not been done for assessing the etiology of the kidney stone initially done in about 6 weeks' time
[2021-06-10 16:33] VITALS: BP 112/62; PULSE 78
--- NOTE | 2021-06-10 17:00 | P.PN ---
Subjective Progress Note Date: 06/10/21 Principal diagnosis: Status post PCNL for right-sided staghorn stone Patient is seen and evaluated in room at bedside; hemoglobin remained stable posttransfusion; vital signs are stable; patient has been evaluated by critical care and urology and has been cleared for discharge Objective - Vital Signs Vital signs: Vital Signs Temp 99 F 06/10/21 04:00 Pulse 79 06/10/21 07:00 Resp 15 06/10/21 07:00 BP 125/67 06/10/21 07:00 Pulse Ox 96 06/10/21 07:00 Intake & Output 06/09/21 06/10/21 06/10/21 18:59 06:59 18:59 Intake Total 2890 2950 150 Output Total 1850 1045 55 Balance 1040 1905 95 Weight 83.5 kg 84 kg Intake: IV 1500 1850 150 Sodium Chloride 0.9% 1, 1500 1800 150 000 ml @ 150 mls/hr IV . Q6H40M [facility] Rx#:[id number] ceFAZolin 2 gm In Sodium 50 Chloride 0.9% 50 ml @ 100 mls/hr IVPB Q8H [facility] Rx#: [id number] Intake, IV Titration 50 Amount ceFAZolin 2 gm In Sodium 50 Chloride 0.9% 50 ml @ 100 mls/hr IVPB Q8H [facility] Rx#: [id number] Oral 120 1100 Blood Product 1220 Rc As-1 Unit 310 [id number] Rc Pheresis 2 As3 Unit 310 [id number] Output: Urine 1850 1045 55 Other: Voiding Method Indwelling Catheter Indwelling Catheter - Exam - Constitutional General appearance: Present: average body habitus, cooperative, no acute distress - EENT Eyes: Present: anicteric sclerae, EOMI, PERRLA, normal appearance ENT: Present: hearing grossly normal, normal oropharynx Ears: bilateral: normal - Neck Neck: Present: normal ROM. Absent: lymphadenopathy, rigidity, thyromegaly Carotids: negative: bruit present Thyroid: bilateral: normal size, negative: enlarged, nodule - Respiratory Respiratory: bilateral: CTA, negative: rales, rhonchi, wheezing - Cardiovascular Rhythm: regular Heart sounds: normal: S1, S2 Abnormal Heart Sounds: Absent: systolic murmur, diastolic murmur - Gastrointestinal General gastrointestinal: Present: normal bowel sounds, soft. Absent: distended, organomegaly, tenderness - Genitourinary Genitourinary Comment(s): deferred - Integumentary Integumentary: Present: normal turgor. Absent: jaundiced, rash, ulcer - Neurologic Neurologic: Present: CNII-XII intact. Absent: focal deficits - Musculoskeletal Musculoskeletal: Present: gait normal, strength equal bilaterally - Psychiatric Psychiatric: Present: A&O x's 3, appropriate affect, intact judgment & insight - Labs CBC & Chem 7: 06/10/21 03:08 06/10/21 03:08 Labs: Abnormal Lab Results - Last 24 Hours (Table) 06/09/21 06/09/21 06/10/21 Range/Units 12:19 12:19 03:08 WBC (3.8-10.6) k/uL RBC 2.37 L (3.80-5.40) m/uL Hgb 6.7 L* (11.4-16.0) gm/dL Hct 20.3 L (34.0-46.0) % RDW 17.6 H (11.5-15.5) % Neutrophils # 8.1 H (1.3-7.7) k/uL Lymphocytes # 0.9 L (1.0-4.8) k/uL Sodium (137-145) mmol/L Chloride (98-107) mmol/L Carbon Dioxide (22-30) mmol/L BUN (7-17) mg/dL Calcium (8.4-10.2) mg/dL Iron 11 L (50-170) ug/dL % Saturation 3.63 L (12.00-45.00) Crossmatch See Detail 06/10/21 06/10/21 Range/Units 03:08 03:08 WBC 12.2 H (3.8-10.6) k/uL RBC 2.90 L (3.80-5.40) m/uL Hgb 8.6 L D (11.4-16.0) gm/dL Hct 25.5 L (34.0-46.0) % RDW 16.7 H (11.5-15.5) % Neutrophils # (1.3-7.7) k/uL Lymphocytes # (1.0-4.8) k/uL Sodium 135 L (137-145) mmol/L Chloride 110 H (98-107) mmol/L Carbon Dioxide 20 L (22-30) mmol/L BUN 19 H (7-17) mg/dL Calcium 8.3 L (8.4-10.2) mg/dL Iron (50-170) ug/dL % Saturation (12.00-45.00) Crossmatch Assessment and Plan Assessment: 1. Status post PCNL for right-sided staghorn stone; complicated by h yponatremia, mental status changes, bleeding, and anemia - Status post right nephrostomy tube; patient is POD #1; your management 2. Hyponatremia; continues to improve and is at 125 this morning; we will continue to monitor electrolytes closely 3. Hypertension; continue to blood pressure closely with plans to see him home medications once patient is stable 4. History of valvular heart disease; stable DVT prophylaxis; SCDs CODE STATUS; full code
== END 2021-06-10 16:45 | disposition home or self-care (01) | DRG 920 ==
LOC: OR 10:17 → 4SSUR 15:31 → 2SICU 17:58 → OR 19:01 → 2SICU 19:02
PROVIDERS: ADMIT Urology; ATTEND Urology
DX: N99.61 Intraoperative hemorrhage and hematoma of a genitourinary system organ or structure complicating a genitourinary system procedure (principal); E87.2 Acidosis; N17.9 Acute kidney failure, unspecified; E87.1 Hypo-osmolality and hyponatremia; N20.0 Calculus of kidney; I10 Essential (primary) hypertension; D64.9 Anemia, unspecified; F17.210 Nicotine dependence, cigarettes, uncomplicated; M81.0 Age-related osteoporosis without current pathological fracture; Z53.8 Procedure and treatment not carried out for other reasons; Z79.82 Long term (current) use of aspirin; Z79.899 Other long term (current) drug therapy; Z87.19 Personal history of other diseases of the digestive system; Z86.19 Personal history of other infectious and parasitic diseases; Z87.440 Personal history of urinary (tract) infections; Z87.442 Personal history of urinary calculi; Z88.8 Allergy status to other drugs, medicaments and biological substances; Z88.6 Allergy status to analgesic agent; Y83.8 Other surgical procedures as the cause of abnormal reaction of the patient, or of later complication, without mention of misadventure at the time of the procedure
CPT/HCPCS: 50432; 74018; 80048; 80053; 82570; 83540; 83550; 83935; 84132; 84295; 84300; 85025; 85027; 86850; 86900; 86901; 86920; 93005

== ENCOUNTER 2021-06-15 22:02 | Observation (INO) | payer OTHER ==
[2021-06-15] MEDS ORDERED: KETOROLAC 15 MG/ML 1 ML VIAL IM STA (22:42)
[2021-06-15 23:13] LABS: Basophils # (A) 0.1 k/uL (0-0.2); Basophils % (A) 0 %; Eosinophils # (A) 0.5 k/uL (0-0.7); Eosinophils % (A) 3 %; HGB 7.8 gm/dL (11.4-16.0); Hypochromasia Slight; Lymphocytes # (A) 3.1 k/uL (1.0-4.8); Lymphocytes % (A) 20 %; MCH 28.5 pg (25.0-35.0); MCHC 32.5 g/dL (31.0-37.0); MCV 87.6 fL (80.0-100.0); Mean Platelet Volume 6.3; Monocytes # (A) 0.5 k/uL (0-1.0); Monocytes % (A) 3 %; Neutrophils # (A) 11.3 k/uL (1.3-7.7); Neutrophils % (A) 71 %; Poikilocytosis Slight; RBC 2.74 m/uL (3.80-5.40); RDW 15.9 % (11.5-15.5); WBC 15.8 k/uL (3.8-10.6)
--- NOTE | 2021-06-15 23:25 | XR ---
EXAMINATION TYPE: XR KUB DATE OF EXAM: 06/15/2021 COMPARISON: 06/08/2021 HISTORY: Nephrostomy tube TECHNIQUE: Single view FINDINGS: There is right side nephrostomy tube. There is also catheter in the right ureter apparently extending down to the inferior right sacroiliac joint. There are multiple irregular calcifications o marta the right kidney. These measure up to 18 mm. There is some retained fecal material in the large b owel. There is no sign of free air. IMPRESSION: Right side nephrostomy tube and ureteral catheter. Right side multiple renal calculi unch anged. Constipation unchanged.
[2021-06-15 23:35] LABS: Potassium 4.1 mmol/L (3.5-5.1)
[2021-06-15 23:44] LABS: Platelet Count 770 k/uL (150-450)
[2021-06-16] MEDS ORDERED: KETOROLAC 15 MG/ML 1 ML VIAL IVP PRN (00:49)
[2021-06-16] MEDS ORDERED: ACETAMINOPHEN TAB 325 MG TAB PO PRN (00:49)
[2021-06-16] MEDS ORDERED: NALOXONE 0.4 MG/ML 1 ML VIAL IV PRN (00:49)
[2021-06-16] MEDS ORDERED: ONDANSETRON 4 MG/2 ML VIAL IVP PRN (00:49)
[2021-06-16 01:15] LABS: Appearance,Urine Cloudy (Clear); Bacteria,Urine Occasional /hpf; Bilirubin,Urine Negative (Negative); Blood,Urine Trace (Negative); Color,Urine Light Yellow; Glucose,Urine (UA) Negative (Negative); Ketones,Urine Negative (Negative); Leukocyte Esterase,Urine Large (Negative); Mucus,Urine Rare /hpf; Nitrite,Urine Negative (Negative); PH, Urine 5.5 (5.0-8.0); Protein,Urine Negative (Negative); RBC,Urine 3 /hpf (0-5); Specific Gravity,Urine 1.008 (1.001-1.035); Squamous Epithelial Cell,Urine 9 /hpf (0-4); Urobilinogen,Urine <2.0 mg/dL (<2.0); WBC,Urine 63 /hpf (0-5)
[2021-06-16] MEDS: SODIUM CHLORIDE 0.9% 1,000 ML IV SCH ×3 (02:06→20:03)
[2021-06-16 07:16] LABS: African American GFR (CKD) 35 (>60 ml/min/1.73 sqM); Anion Gap 8 mmol/L; Blood Urea Nitrogen 18 mg/dL (7-17); Calcium 8.4 mg/dL (8.4-10.2); Carbon Dioxide 25 mmol/L (22-30); Chloride 107 mmol/L (98-107); Glucose 93 mg/dL (74-99); Non-African American GFR(CKD) 31 (>60 ml/min/1.73 sqM); Sodium 140 mmol/L (137-145)
[2021-06-16] MEDS ORDERED: CEPHALEXIN 500 MG CAP PO SCH (08:00)
[2021-06-16] MEDS: CHOLECALCIFEROL 25 MCG (1000 IU) TABLET PO SCH (08:06)
[2021-06-16] MEDS: ASPIRIN 81 MG PO SCH (08:06)
--- NOTE | 2021-06-16 08:36 | P.NPCON ---
History of Present Illness - Reason for Consult acute renal failure - History of Present Illness Reason for consultation: Acute kidney injury History of present illness: Patient is a 45-year-old female seen in renal consultation for acute kidney injury. Her baseline creatinine is 1 and was elevated at 2.48 on admission. She is currently on IV fluids. Renal function is improving and creatinine is down to 1.93 today. Patient has history of nephrolithiasis and seizure 15. She underwent right-sided nephrostomy tube placement on June 08. Patient noticed that the fluid was leaking into her back soaking her clothes and she came to the hospital. She denies any hematuria or dysuria. No vomiting or diarrhea. She does use Motrin but states she hasn't recently as she scheduled for further intervention for the nephrolithiasis in the near future. She denies chest pain or shortness of breath. No edema. No history of diabetes. Denies family history of renal disease. Vital signs are stable. General: The patient appeared well nourished and normally developed. HEENT: Head exam is unremarkable. LUNGS: Breath sounds decreased. HEART: Rate and Rhythm are regular. ABDOMEN: Soft, no distention. EXTREMITITES: No edema. Past Medical History Past Medical History: Hypertension, Renal Disease Additional Past Medical History / Comment(s): History of opioid addiction. She was addicted to Vicodin for 10 years but has been on Suboxone since 2009. She was recently started on methadone when she was admitted to [facility]. History of Any Multi-Drug Resistant Organisms: None Reported Date of last positivie culture/infection: December 2020 MDRO Source:: intestine Past Surgical History: Back Surgery, Orthopedic Surgery Additional Past Surgical History / Comment(s): Lithotripsy, back surgery, craniotomy due to brain swelling Past Anesthesia/Blood Transfusion Reactions: No Reported Reaction Past Psychological History: Anxiety, Bipolar, Depression Smoking Status: Current every day smoker Past Alcohol Use History: None Reported Additional Past Alcohol Use History / Comment(s): 1/2ppd, has smoked for 15 yrs. Past Drug Use History: Marijuana, Opiates Additional Drug Use History / Comment(s): hx. opioid addiction, went to [facility] in past, last use >10 yrs. ago, takes methadone, occasional marijuana, none for 2 mos. - Past Family History Father Family Medical History: Coronary Artery Disease (CAD), Myocardial Infarction (ID) Additional Family Medical History / Comment(s): CABG, ID x2 2000 x7 stents total, perm. pacemaker Mother History Unknown: Yes Medications and Allergies Home Medications Medication Instructions Recorded Confirmed Type Aspirin [Children's Aspirin] 81 mg PO DAILY 05/07/18 06/15/21 History Citalopram Hydrobromide [CeleXA] 20 mg PO HS 03/22/21 06/15/21 History Ferrous Sulfate [Iron] 325 mg PO HS 03/22/21 06/15/21 History Lurasidone [Latuda] 40 mg PO HS 03/22/21 06/15/21 History amLODIPine BESYLATE [Norvasc] 2.5 mg PO HS 03/22/21 06/15/21 History Cephalexin [Keflex] 500 mg PO Q8HR 5 Days #3 cap 06/10/21 06/15/21 Rx Cholecalciferol [Vitamin D3 (25 50 mcg PO DAILY 06/15/21 06/15/21 History Mcg = 1000 Iu)] Ibuprofen [Motrin] 600 mg PO TID PRN 06/15/21 06/15/21 History Methadone HCl [Methadone Intensol] 115 mg PO DAILY 06/15/21 06/15/21 History Ondansetron [Zofran ODT] 4 mg PO Q8H PRN 06/15/21 06/15/21 History Allergies Allergy/AdvReac Type Severity Reaction Status Date / Time acetaminophen [From Tylenol] AdvReac Unknown Verified 06/08/21 10:39 codeine AdvReac Nausea & Verified 06/08/21 10:39 Vomiting Physical Exam Vitals: Vital Signs Temp Pulse Pulse Resp BP BP Pulse Ox 06/16/21 07:10 97.8 F 82 16 130/75 98 06/16/21 06:45 73 18 137/98 95 06/16/21 02:52 79 20 144/79 93 L 06/16/21 00:54 80 16 139/73 95 06/15/21 22:03 98.8 F 90 18 130/51 96 Intake and Output 06/15/21 06/16/21 06/16/21 22:59 06:59 14:59 Other: # Voids 1 Weight 77.111 kg 77.111 kg Results - Lab Results Most recent lab results Calcium 8.4 mg/dL (8.4-10.2) 06/16/21 06:39 Magnesium 2.0 mg/dL (1.6-2.3) 06/16/21 06:39 06/15/21 23:01 06/16/21 06:39 Assessment and Plan Plan: Assessment: 1. Acute kidney injury mostly prerenal improving with IV hydration. Receving NSAIDs. Creatinine was 2.4 and on admission and is down to 1.93 today. Baseline creatinine near 1. No proteinuria on UA. 2. Malpositioned nephrostomy tube. Urology consulted. 3. Benign hypertension. Stable. 4. Nephrolithiasis. 5. Anemia. Rule out iron deficiency. Plan: Normal saline at 75 mL an hour. Discontinue nonsteroidals. Check iron studies. Avoid nephrotoxins. Continue to monitor renal function and urine output. Patient will need outpatient follow-up for further workup for nephrolithiasis. Thank you for the consultation. I will continue to follow the patient with you during her hospital stay.
[2021-06-16 08:44] LABS: Potassium 3.3 mmol/L (3.5-5.1)
[2021-06-16] MEDS ORDERED: Potassium Replacement Protocol 1 EACH MISC MISCELLANE PRN (08:46)
[2021-06-16] MEDS: POTASSIUM CHLORIDE ER 20 MEQ TAB.ER PO SCH ×3 (09:17→13:23)
[2021-06-16] MEDS: METHADONE 10 MG TAB PO SCH (10:15)
--- NOTE | 2021-06-16 10:18 | P.HPIM ---
History of Present Illness This is a pleasant 45 years old female with past medical history of hypertension, kidney disease, history of opioid addiction, anxiety, bipolar and depression She was recently in the hospital 06/07-06/10 for right sided staghorn stone and status post right-sided nephrostomy tube. Her PCP is Dr. Almeida and she sees the urologist yestrday patient started having leaking from her right urostomy tube, and tenderness around the area, she has decreased appetite yesterday and looks dehydrated and she was little confused during the night but she felt better after good sleep. She still able to urinate, denies dysuria but she has some difficulty to initiate urination at times. About half pack per day and consults and she agrees to quit and nicotine patch. No alcohol or illicit drugs. Vitrocael looks stable and afebrile. Labs showing slightly worsened leukocytosis at 15.8 compared to 12.2 on 06/10. Hemoglobin 7.8, last time hemoglobin dropped to 6.7 and received blood transfusion after the procedure, her hemoglobin was 8.6 upon discharge. I platelet count at 770. Creatinine is elevated at 2.4 and 1.9. Urine analysis consistent with UTI., covid not detected. KUB: Right nephrostomy tube and ureteral catheter. Right-sided multiple renal calculi and change. Constipation unchanged In the emergency room she received 1 dose of Toradol. And started on normal saline at 1:30 milliliters per hour Review of Systems CONSTITUTIONAL: No fever, no malaise, no fatigue. HEENT: No recent visual problems or hearing problems. Denied any sore throat. CARDIOVASCULAR: No orthopnea, PND, no palpitations, no syncope. PULMONARY: No shortness of breath, no cough, no hemoptysis. GASTROINTESTINAL: No diarrhea, no nausea, no vomiting, no abdominal pain. Normoactive bowel sounds. NEUROLOGICAL: No headaches, no weakness, no numbness. HEMATOLOGICAL: Denies any bleeding or petechiae. GENITOURINARY: Denies any burning micturition, frequency, or urgency. MUSCULOSKELETAL/RHEUMATOLOGICAL: Denies any joint pain, swelling, or any muscle pain. ENDOCRINE: Denies any polyuria or polydipsia. Past Medical History Past Medical History: Hypertension, Renal Disease Additional Past Medical History / Comment(s): History of opioid addiction. She was addicted to Vicodin for 10 years but has been on Suboxone since 2009. She was recently started on methadone when she was admitted to [place]. History of Any Multi-Drug Resistant Organisms: None Reported Date of last positivie culture/infection: December 2020 MDRO Source:: intestine Past Surgical History: Back Surgery, Orthopedic Surgery Additional Past Surgical History / Comment(s): Lithotripsy, back surgery, craniotomy due to brain swelling Past Anesthesia/Blood Transfusion Reactions: No Reported Reaction Past Psychological History: Anxiety, Bipolar, Depression Smoking Status: Current every day smoker Past Alcohol Use History: None Reported Past Drug Use History: Marijuana, Opiates - Past Family History Father Family Medical History: Coronary Artery Disease (CAD), Myocardial Infarction ([place]) Additional Family Medical History / Comment(s): CABG, [place] x2 2000 x7 stents total, perm. pacemaker Mother History Unknown: Yes Medications and Allergies Home Medications Medication Instructions Recorded Confirmed Type Aspirin [Children's Aspirin] 81 mg PO DAILY 05/07/18 06/15/21 History Citalopram Hydrobromide [CeleXA] 20 mg PO HS 03/22/21 06/15/21 History Ferrous Sulfate [Iron] 325 mg PO HS 03/22/21 06/15/21 History Lurasidone [Latuda] 40 mg PO HS 03/22/21 06/15/21 History amLODIPine BESYLATE [Norvasc] 2.5 mg PO HS 03/22/21 06/15/21 History Cephalexin [Keflex] 500 mg PO Q8HR 5 Days #3 cap 06/10/21 06/15/21 Rx Cholecalciferol [Vitamin D3 (25 50 mcg PO DAILY 06/15/21 06/15/21 History Mcg = 1000 Iu)] Ibuprofen [Motrin] 600 mg PO TID PRN 06/15/21 06/15/21 History Methadone HCl [Methadone Intensol] 115 mg PO DAILY 06/15/21 06/15/21 History Ondansetron [Zofran ODT] 4 mg PO Q8H PRN 06/15/21 06/15/21 History Allergies Allergy/AdvReac Type Severity Reaction Status Date / Time acetaminophen [From Tylenol] AdvReac Unknown Verified 06/08/21 10:39 codeine AdvReac Nausea & Verified 06/08/21 10:39 Vomiting Physical Exam Vitals: Vital Signs Temp Pulse Resp BP Pulse Ox 06/16/21 06:45 73 18 137/98 95 06/16/21 02:52 79 20 144/79 93 L 06/16/21 00:54 80 16 139/73 95 06/15/21 22:03 98.8 F 90 18 130/51 96 Intake and Output 06/15/21 06/16/21 06/16/21 22:59 06:59 14:59 Other: Weight 77.111 kg GENERAL: The patient is alert and oriented x3, not in any acute distress. Well d eveloped, well nourished. HEENT: Pupils are round and equally reacting to light. EOMI. No scleral icterus. No conjunctival pallor. Normocephalic, atraumatic. No pharyngeal erythema. No thyromegaly. CARDIOVASCULAR: S1 and S2 present. No murmurs, rubs, or gallops. PULMONARY: Chest is clear to auscultation, no wheezing or crackles. -ABDOMEN: Soft, nontender, nondistended, normoactive bowel sounds. No palpable organomegaly. Right-sided urostomy tube, leaking with soft dressing. Tenderness around the orifice but no cellulitis MUSCULOSKELETAL: No joint swelling or deformity. EXTREMITIES: No cyanosis, clubbing, or pedal edema. NEUROLOGICAL: Gross neurological examination did not reveal any focal deficits. SKIN: No rashes. No petechiae Results CBC & Chem 7: 06/15/21 23:01 06/16/21 06:39 Labs: Abnormal Lab Results - Last 24 Hours (Table) 06/15/21 06/15/21 06/15/21 Range/Units 01:00 23:01 23:01 WBC 15.8 H (3.8-10.6) k/uL RBC 2.74 L (3.80-5.40) m/uL Hgb 7.8 L (11.4-16.0) gm/dL Hct 24.0 L (34.0-46.0) % RDW 15.9 H (11.5-15.5) % Plt Count 770 H D (150-450) k/uL Neutrophils # 11.3 H (1.3-7.7) k/uL Potassium (3.5-5.1) mmol/L Creatinine 2.48 H (0.52-1.04) mg/dL Glucose 103 H (74-99) mg/dL Urine Appearance Cloudy H (Clear) Urine Blood Trace H (Negative) Ur Leukocyte Esterase Large H (Negative) Urine WBC 63 H (0-5) /hpf Ur Squamous Epith Cells 9 H (0-4) /hpf Urine Bacteria Occasional H (None) /hpf Urine Mucus Rare H (None) /hpf 06/16/21 Range/Units 06:39 WBC (3.8-10.6) k/uL RBC (3.80-5.40) m/uL Hgb (11.4-16.0) gm/dL Hct (34.0-46.0) % RDW (11.5-15.5) % Plt Count (150-450) k/uL Neutrophils # (1.3-7.7) k/uL Potassium 3.3 L (3.5-5.1) mmol/L Creatinine (0.52-1.04) mg/dL Glucose (74-99) mg/dL Urine Appearance (Clear) Urine Blood (Negative) Ur Leukocyte Esterase (Negative) Urine WBC (0-5) /hpf Ur Squamous Epith Cells (0-4) /hpf Urine Bacteria (None) /hpf Urine Mucus (None) /hpf Assessment and Plan Assessment: Acute kidney injury Acute urinary tract infection right-sided partial staghorn calculi. Status post recent right nephrostomy tube. Her urostomy start leaking, present on admission mild metabolic encephalopathy secondary to above Hypertension history of recurrent urinary tract infection History of opioid addiction was on Suboxone, currently she states that she is on methadone constipation Plan: This is a pleasant 45 years old female who presents with acute kidney injury and possible UTI Gen. with IV fluids and follow-up creatinine [employer] and urologists were consulted We will consult infectious disease team for antibiotic. Follow-up urine culture Labs and medication were reviewed.. Continue same treatment. Continue with symptomatic treatment. Resume home medication. Monitor lytes and vitals. DVT and GI prophylaxis. Further recommendations depends on the clinical course of the patient DVT prophylaxis: Subcutaneous heparin GI Prophylaxis: Pepcid
--- NOTE | 2021-06-16 11:16 | P.GSCN ---
History of Present Illness Consult date: 06/16/21 History of present illness: 45-year-old female who earlier last week underwent a right percutaneous nephrostomy tube placement by etiology and . Due to scarring around the kidney there was too much bleeding to proceed with the percutaneous nephrostolithotomy. The bleeding subsided. A larger nephrostomy tube was appropriately placed for a secondary nephrostolithotomy scheduled for next week. She was admitted because of leakage around the nephrostomy tube as well as some renal insufficiency. Really have any pain. There is no bleeding. The dressing on the nephrostomy tube is wet. Her creatinine was 2.4 is down to 1.9 after some IV hydration. Hemoglobin was 7.8 which is due to blood loss from the surgery. Not actively bleeding at this point in time. Preoperative hemoglobin was 10. Review of Systems All systems: negative - Constitutional Denies fever, Denies weight loss - EENT Eyes: denies blurred vision Ears, nose, mouth and throat: Denies dysphagia - Cardiovascular Denies chest pain, Denies shortness of breath - Respiratory Denies cough, Denies 7 - Gastrointestinal Reports as per HPI - Genitourinary Genitourinary: Denies dysuria, Denies hematuria - Integumentary Denies rash, Denies unusual bruising - Neurological Denies headaches, Denies syncope - Hematologic/Lymphatic Denies easy bleeding, Denies easy bruising Past Medical History Past Medical History: Hypertension, Renal Disease Additional Past Medical History / Comment(s): History of opioid addiction. She was addicted to Vicodin for 10 years but has been on Suboxone since 2009. She was recently started on methadone when she was admitted to [facility]. History of Any Multi-Drug Resistant Organisms: None Reported Year Discovered:: December 2020 MDRO Source:: intestine Past Surgical History: Back Surgery, Orthopedic Surgery Additional Past Surgical History / Comment(s): Lithotripsy, back surgery, craniotomy due to brain swelling Past Anesthesia/Blood Transfusion Reactions: No Reported Reaction Past Psychological History: Anxiety, Bipolar, Depression Smoking Status: Current every day smoker Past Alcohol Use History: None Reported Past Drug Use History: Marijuana, Opiates - Past Family History Father Family Medical History: Coronary Artery Disease (CAD), Myocardial Infarction ([place]) Additional Family Medical History / Comment(s): CABG, [place] x2 2000 x7 stents total, perm. pacemaker Mother History Unknown: Yes Medications and Allergies Home Medications Medication Instructions Recorded Confirmed Type Aspirin [Children's Aspirin] 81 mg PO DAILY 05/07/18 06/15/21 History Citalopram Hydrobromide [CeleXA] 20 mg PO HS 03/22/21 06/15/21 History Ferrous Sulfate [Iron] 325 mg PO HS 03/22/21 06/15/21 History Lurasidone [Latuda] 40 mg PO HS 03/22/21 06/15/21 History amLODIPine BESYLATE [Norvasc] 2.5 mg PO HS 03/22/21 06/15/21 History Cephalexin [Keflex] 500 mg PO Q8HR 5 Days #3 cap 06/10/21 06/15/21 Rx Cholecalciferol [Vitamin D3 (25 50 mcg PO DAILY 06/15/21 06/15/21 History Mcg = 1000 Iu)] Ibuprofen [Motrin] 600 mg PO TID PRN 06/15/21 06/15/21 History Methadone HCl [Methadone Intensol] 115 mg PO DAILY 06/15/21 06/15/21 History Ondansetron [Zofran ODT] 4 mg PO Q8H PRN 06/15/21 06/15/21 History Allergies Allergy/AdvReac Type Severity Reaction Status Date / Time acetaminophen [From Tylenol] AdvReac Unknown Verified 06/08/21 10:39 codeine AdvReac Nausea & Verified 06/08/21 10:39 Vomiting Surgical - Exam Vital Signs Temp Pulse Resp BP Pulse Ox 98.8 F 90 18 130/51 96 06/15/21 22:03 06/15/21 22:03 06/15/21 22:03 06/15/21 22:03 06/15/21 22:03 - General well developed, well nourished, no distress - Eyes PERRL - ENT no hearing loss - Respiratory normal expansion, normal respiratory effort - Cardiovascular Rhythm: regular - Abdomen Right nephrostomy tube with some leakage around the tube. Abdomen: soft, non tender - Neurologic normal sensation - Musculoskeletal normal posture - Psychiatric oriented to time, oriented to person, oriented to place, speech is normal, memory intact Results - Labs 06/15/21 23:01 06/16/21 06:39 Abnormal Lab Results - Last 24 Hours (Table) 06/15/21 06/15/2106/15/21 Range/Units 01:00 23:01 23:01 WBC 15.8 H (3.8-10.6) k/uL RBC 2.74 L (3.80-5.40) m/uL Hgb 7.8 L (11.4-16.0) gm/dL Hct 24.0 L (34.0-46.0) % RDW 15.9 H (11.5-15.5) % Plt Count 770 H D (150-450) k/uL Neutrophils # 11.3 H (1.3-7.7) k/uL Potassium (3.5-5.1) mmol/L BUN (7-17) mg/dL Creatinine 2.48 H (0.52-1.04) mg/dL Glucose 103 H (74-99) mg/dL Urine Appearance Cloudy H (Clear) Urine Blood Trace H (Negative) Ur Leukocyte Esterase Large H (Negative) Urine WBC 63 H (0-5) /hpf Ur Squamous Epith Cells 9 H (0-4) /hpf Urine Bacteria Occasional H (None) /hpf Urine Mucus Rare H (None) /hpf 06/16/21 Range/Units 06:39 WBC (3.8-10.6) k/uL RBC (3.80-5.40) m/uL Hgb (11.4-16.0) gm/dL Hct (34.0-46.0) % RDW (11.5-15.5) % Plt Count (150-450) k/uL Neutrophils # (1.3-7.7) k/uL Potassium 3.3 L (3.5-5.1) mmol/L BUN 18 H (7-17) mg/dL Creatinine 1.93 H (0.52-1.04) mg/dL Glucose (74-99) mg/dL Urine Appearance (Clear) Urine Blood (Negative) Ur Leukocyte Esterase (Negative) Urine WBC (0-5) /hpf Ur Squamous Epith Cells (0-4) /hpf Urine Bacteria (None) /hpf Urine Mucus (None) /hpf Diabetes panel 06/15/21 06/16/21 Range/Units 23:01 06:39 Sodium 139 140 (137-145) mmol/L Potassium 4.1 3.3 L (3.5-5.1) mmol/L Chloride 103 107 (98-107) mmol/L Carbon Dioxide 24 25 (22-30) mmol/L BUN 17 18 H (7-17) mg/dL Creatinine 2.48 H 1.93 H (0.52-1.04) mg/dL Glucose 103 H 93 (74-99) mg/dL Calcium 9.0 8.4 (8.4-10.2) mg/dL Calcium panel 06/15/21 06/16/21 Range/Units 23:01 06:39 Calcium 9.0 8.4 (8.4-10.2) mg/dL Pituitary panel 06/15/21 06/16/21 Range/Units 23:01 06:39 Sodium 139 140 (137-145) mmol/L Potassium 4.1 3.3 L (3.5-5.1) mmol/L Chloride 103 107 (98-107) mmol/L Carbon Dioxide 24 25 (22-30) mmol/L BUN 17 18 H (7-17) mg/dL Creatinine 2.48 H 1.93 H (0.52-1.04) mg/dL Glucose 103 H 93 (74-99) mg/dL Calcium 9.0 8.4 (8.4-10.2) mg/dL Adrenal panel 06/15/21 06/16/21 Range/Units 23:01 06:39 Sodium 139 140 (137-145) mmol/L Potassium 4.1 3.3 L (3.5-5.1) mmol/L Chloride 103 107 (98-107) mmol/L Carbon Dioxide 24 25 (22-30) mmol/L BUN 17 18 H (7-17) mg/dL Creatinine 2.48 H 1.93 H (0.52-1.04) mg/dL Glucose 103 H 93 (74-99) mg/dL Calcium 9.0 8.4 (8.4-10.2) mg/dL - Imaging Abdominal x-ray: report reviewed Assessment and Plan Assessment: Impression: Status post percutaneous nephrostomy tube placement with postoperative bleeding. Right renal stone. Acute renal insufficiency being corrected with IV fluids. A secondary to acute blood loss during the surgical procedure. The penis nephrostomy tube issues Recommendations. Larger tubes tend to leak at insertion site This is a Mal[place]ot tube. The tube is for the most part in good placement. It has migrated a little bit out but not enough. The tube is irrigated and I recommended leaving the tube as it is. She will leak around the tube on a regular basis until the secondary nephrostolithotomy was performed. I instructed the nursing staff on how to manage the tube and dress the tube. I will follow this patient.
[2021-06-16 18:07] LABS: % Iron Saturation 4.78 (12.00-45.00)
[2021-06-16] MEDS: amLODIPine 2.5 MG TAB PO SCH (20:03)
[2021-06-16] MEDS: LURASIDONE 40 MG TAB PO SCH (20:03)
[2021-06-16] MEDS: CITALOPRAM HYDROBROMIDE 20 MG TAB PO SCH (20:03)
[2021-06-16] MEDS ORDERED: FERROUS SULFATE 325 MG TAB PO SCH (21:00)
[2021-06-17] MEDS: CHOLECALCIFEROL 25 MCG (1000 IU) TABLET PO SCH (07:35)
[2021-06-17] MEDS: ASPIRIN 81 MG PO SCH (07:35)
[2021-06-17] MEDS: METHADONE 10 MG TAB PO SCH (09:19)
--- NOTE | 2021-06-17 09:20 | P.PN ---
Subjective Patient is seen in follow-up for acute kidney injury on chronic kidney disease. Renal function improved. Morning labs pending. No active complaints. Good urine output. Vital signs are stable. General: The patient appeared well nourished and normally developed. HEENT: Head exam is unremarkable. LUNGS: Breath sounds decreased. HEART: Rate and Rhythm are regular. ABDOMEN: Soft, no distention. EXTREMITITES: No edema. Objective - Vital Signs Vital signs: Vital Signs Temp 98.2 F 06/17/21 07:00 Pulse 78 06/17/21 07:00 Resp 16 06/17/21 07:00 BP 102/68 06/17/21 07:00 Pulse Ox 98 06/17/21 07:00 Intake & Output 06/16/21 06/17/21 06/17/21 18:59 06:59 18:59 Output Total 500 Balance -500 Weight 77.111 kg Output: Drainage 500 Right Medial Back 500 Other: Voiding Method Toilet Toilet Toilet # Voids 3 2 - Labs CBC & Chem 7: 06/15/21 23:01 06/16/21 06:39 Labs: Abnormal Lab Results - Last 24 Hours (Table) 06/16/21 Range/Units 06:39 Iron 13 L (50-170) ug/dL % Saturation 4.78 L (12.00-45.00) Microbiology - Last 24 Hours (Table) 06/15/21 01:00 Urine Culture - Preliminary Urine,Voided Assessment and Plan Plan: Assessment: 1. Acute kidney injury mostly prerenal improving with IV hydration. Receving NSAIDs. Creatinine was 2.4 and on admission and down to 1.93 yesterday. Baseline creatinine near 1. No proteinuria on UA. 2. Leaky nephrostomy tube. Urology following. 3. Benign hypertension. Blood pressure in the lower side. 4. Nephrolithiasis. 5. Anemia. Iron deficiency noted. 6. Hypokalemia from poor intake. Replaced. Plan: Hep-Lock IV fluids. Discontinued nonsteroidals. Add IV iron. Avoid nephrotoxins. Continue to monitor renal function and urine output. Hold amlodipine for systolic blood pressure less than 110. Patient will need outpatient follow-up for further workup for nephrolithiasis.
[2021-06-17] MEDS: SODIUM FERRIC GLUCONAT-SUCROSE 125 MG in SODIUM CHLORIDE 0.9% 100 ML IVPB SCH (09:32)
[2021-06-17 12:25] LABS: Basophils # (A) 0.04 X 10*3/uL (0.00-0.10); Basophils % (A) 0.4 %; Eosinophils # (A) 0.37 X 10*3/uL (0.04-0.35); Eosinophils % (A) 3.3 %; HCT 23.6 % (37.2-46.3); HGB 7.1 g/dL (12.0-15.0); Lymphocytes # (A) 3.17 X 10*3/uL (0.90-5.00); Lymphocytes % (A) 28.3 %; MCHC 30.1 g/dL (32.0-37.0); MCV 92.9 fL (80.0-97.0); Mean Platelet Volume 8.4 fL (9.5-12.2); Monocytes % (A) 5.4 %; Neutrophils # (A) 6.99 X 10*3/uL (1.80-7.70); Neutrophils % (A) 62.2 %; Platelet Count 662 X 10*3/uL (140-440); RBC 2.54 X 10*6/uL (4.10-5.20); RDW 14.6 % (11.5-14.5); WBC 11.21 X 10*3/uL (4.50-10.00)
--- NOTE | 2021-06-17 12:26 | P.PN ---
Subjective Progress Note Date: 06/17/21 The patient is status post placement of a nephrostomy tube for a percutaneous nephrostolithotomy. The nephrostolithotomy is aborted due to bleeding. The bleeding has stopped. The urine is clear. Yesterday I saw the patient because the nephrostomy tube is leaking. It was adjusted and now was not leaking. The urine is clear. From a urologic standpoint she can be discharged home. She has a follow-up secondary nephrostolithotomy later next week. We'll notify the patient if this day changes. Objective - Vital Signs Vital signs: Vital Signs Temp 98.2 F 06/17/21 07:00 Pulse 78 06/17/21 07:00 Resp 16 06/17/21 07:00 BP 102/68 06/17/21 07:00 Pulse Ox 98 06/17/21 07:00 Intake & Output 06/16/21 06/17/21 06/17/21 18:59 06:59 18:59 Output Total 500 Balance -500 Weight 77.111 kg Output: Drainage 500 Right Medial Back 500 Other: Voiding Method Toilet Toilet Toilet # Voids 3 2 2 - Labs CBC & Chem 7: 06/15/21 23:01 06/16/21 06:39 Labs: Abnormal Lab Results - Last 24 Hours (Table) 06/16/21 Range/Units 06:39 Iron 13 L (50-170) ug/dL % Saturation 4.78 L (12.00-45.00) Microbiology - Last 24 Hours (Table) 06/15/21 01:00 Urine Culture - Preliminary Urine,Voided
[2021-06-17 13:10] LABS: African American GFR (CKD) 69.7 (60.0-200.0); Anion Gap 7.9 mmol/L (4.00-12.00); BUN/Creat Ratio 13.64 Ratio (12.00-20.00); Calcium 8.2 mg/dL (8.7-10.3); Carbon Dioxide 23.1 mmol/L (21.6-31.8); Magnesium 1.8 mg/dL (1.5-2.4); Non-African American GFR(CKD) 60.2 (60.0-200.0); Potassium 4.2 mmol/L (3.5-5.5)
--- NOTE | 2021-06-17 19:43 | P.PN ---
Subjective This is a pleasant 45 years old female with past medical history of hypertension, kidney disease, history of opioid addiction, anxiety, bipolar and depression She was recently in the hospital 06/07-06/10 for right sided staghorn stone and status post right-sided nephrostomy tube. Her PCP is Dr. Almeida and she sees the urologist yestrday patient started having leaking from her right urostomy tube, and tenderness around the area, she has decreased appetite yesterday and looks dehydrated and she was little confused during the night but she felt better after good sleep. She still able to urinate, denies dysuria but she has some difficulty to initiate urination at times. About half pack per day and consults and she agrees to quit and nicotine patch. No alcohol or illicit drugs. Vitas looks stable and afebrile. Labs showing slightly worsened leukocytosis at 15.8 compared to 12.2 on 06/10. Hemoglobin 7.8, last time hemoglobin dropped to 6.7 and received blood transfusion after the procedure, her hemoglobin was 8.6 upon discharge. I platelet count at 770. Creatinine is elevated at 2.4 and 1.9. Urine analysis consistent with UTI., covid not detected. KUB: Right nephrostomy tube and ureteral catheter. Right-sided multiple renal calculi and change. Constipation unchanged In the emergency room she received 1 dose of Toradol. And started on normal saline at 1:30 milliliters per hour 06/17/2021 Patient is awake and alert looks comfortable, she denies any urinary symptoms like no dysuria or urgency, no discomfort with urination. No abdominal pain or nausea vomiting or change in bowel habits. She has persistent right urostomy tube into place with some leaking expected. No need to be changed per urologist and follow-up as an outpatient Creatinine is back to normal today at 1.1 and her IV fluids were stopped. Urine culture came back negative and ceftriaxone was stopped. No fever and leukocytosis is improving down to 11.2. However her hemoglobin also dropped 7.8 down to 7.1 and status showing evidence of iron deficiency anemia. She was placed on IV iron and will increase her fiber sulfate twice a day. We will check her hemoglobin tomorrow Also we'll check for vitamin B12, folate, occult blood in his stool Also patient has incidental findings of right hand swelling secondary to IV infiltration, IV line was taken off and IV fluids were stopped. Discussed patient and staff to keep hand elevated with local measures Objective - Vital Signs Vital signs: Vital Signs Temp 98.2 F 06/17/21 07:00 Pulse 78 06/17/21 07:00 Resp 16 06/17/21 07:00 BP 102/68 06/17/21 07:00 Pulse Ox 98 06/17/21 07:00 Intake & Output 06/16/21 06/17/21 06/17/21 18:59 06:59 18:59 Output Total 500 Balance -500 Weight 77.111 kg Output: Drainage 500 Right Medial Back 500 Other: Voiding Method Toilet Toilet Toilet # Voids 3 2 2 - Exam GENERAL: The patient is alert and oriented x3, not in any acute distress. Well developed, well nourished. HEENT: Pupils are round and equally reacting to light. EOMI. No scleral icterus. No conjunctival pallor. Normocephalic, atraumatic. No pharyngeal erythema. No thyromegaly. CARDIOVASCULAR: S1 and S2 present. No murmurs, rubs, or gallops. PULMONARY: Chest is clear to auscultation, no wheezing or crackles. ABDOMEN: Soft, nontender, nondistended, normoactive bowel sounds. No palpable organomegaly. -MUSCULOSKELETAL: No joint swelling or deformity. Right urostomy tube is in place with some leakage in the dressing; right hand swelling secondary to IV infiltration EXTREMITIES: No cyanosis, clubbing, or pedal edema. NEUROLOGICAL: Gross neurological examination did not reveal any focal deficits. SKIN: No rashes. no petechiae.m - Labs CBC & Chem 7: 06/17/21 06:50 06/17/21 06:50 Labs: Abnormal Lab Results - Last 24 Hours (Table) 06/16/21 Range/Units 06:39 Iron 13 L (50-170) ug/dL % Saturation 4.78 L (12.00-45.00) Microbiology - Last 24 Hours (Table) 06/15/21 01:00 Urine Culture - Preliminary Urine,Voided Assessment and Plan Assessment: Iron deficiency anemia Acute kidney injury, back to normal Most likely asymptomatic bacteriuria further than Acute urinary tract infection . Urine culture is negative right-sided partial staghorn calculi. Status post recent right nephrostomy tube. Her urostomy start leaking, which is expected. No need to be changed on follow-up as an outpatient per Urologist right hand swelling secondary to IV infiltration mild metabolic encephalopathy secondary to above. Resolved Hypertension history of recurrent urinary tract infection History of opioid addiction was on Suboxone, currently she states that she is on methadone constipation Plan: This is a pleasant 45 years old female who presents with acute kidney injury and possible UTI continue with iron both oral and IV. Check vitamin B12 and FOBT. Start oral Protonix Discontinue IV fluids. Discontinue antibiotics for now [employer]ing [employer] and urologists were consulted Labs and medication were reviewed.. Continue same treatment. Continue with symptomatic treatment. Resume home medication. Monitor lytes and vitals. DVT and GI prophylaxis. Further recommendations depends on the clinical course of the patient DVT prophylaxis: hold Subcutaneous heparin For severe anemia GI Prophylaxis: Ppi
[2021-06-17] MEDS: LURASIDONE 40 MG TAB PO SCH (20:31)
[2021-06-17] MEDS: FERROUS SULFATE 325 MG TAB PO SCH (20:32)
[2021-06-17] MEDS: amLODIPine 2.5 MG TAB PO SCH (20:32)
[2021-06-17] MEDS: PANTOPRAZOLE 40 MG TABLET PO SCH (20:32)
[2021-06-17] MEDS: CITALOPRAM HYDROBROMIDE 20 MG TAB PO SCH (20:32)
[2021-06-18] MEDS: FERROUS SULFATE 325 MG TAB PO SCH ×2 (07:48→21:54)
[2021-06-18] MEDS: PANTOPRAZOLE 40 MG TABLET PO SCH (07:49)
[2021-06-18] MEDS: METHADONE 10 MG TAB PO SCH (07:49)
[2021-06-18] MEDS: ASPIRIN 81 MG PO SCH (07:49)
[2021-06-18] MEDS: CHOLECALCIFEROL 25 MCG (1000 IU) TABLET PO SCH (07:49)
[2021-06-18] MEDS: SODIUM FERRIC GLUCONAT-SUCROSE 125 MG in SODIUM CHLORIDE 0.9% 100 ML IVPB SCH (08:38)
[2021-06-18] MEDS: NICOTINE 21MG/24HR PATCH TRANSDERM SCH (09:49)
--- NOTE | 2021-06-18 09:59 | P.PN ---
Subjective Patient is seen in follow-up for acute kidney injury on chronic kidney disease. Renal function improved. No active complaints. Good urine output. Likely going home today. Vital signs are stable. General: The patient appeared well nourished and normally developed. HEENT: Head exam is unremarkable. LUNGS: Breath sounds decreased. HEART: Rate and Rhythm are regular. ABDOMEN: Soft, no distention. EXTREMITITES: No edema. Objective - Vital Signs Vital signs: Vital Signs Temp 98.4 F 06/18/21 07:00 Pulse 75 06/18/21 07:00 Resp 16 06/18/21 07:00 BP 123/78 06/18/21 07:00 Pulse Ox 95 06/18/21 07:00 Intake & Output 06/17/21 06/18/21 06/18/21 18:59 06:59 18:59 Other: Voiding Method Toilet Toilet Ileal Conduit (Right) # Voids 2 3 - Labs CBC & Chem 7: 06/17/21 06:50 06/17/21 06:50 Labs: Abnormal Lab Results - Last 24 Hours (Table) 06/17/21 06/17/21 Range/Units 06:50 06:50 WBC 11.21 H (4.50-10.00) X 10*3/uL RBC 2.54 L (4.10-5.20) X 10*6/uL Hgb 7.1 L (12.0-15.0) g/dL Hct 23.6 L (37.2-46.3) % MCHC 30.1 L (32.0-37.0) g/dL RDW 14.6 H (11.5-14.5) % Plt Count 662 H (140-440) X 10*3/uL MPV 8.4 L (9.5-12.2) fL Eosinophils # 0.37 H (0.04-0.35) X 10*3/uL Chloride 111 H (96-109) mmol/L Calcium 8.2 L (8.7-10.3) mg/dL Microbiology - Last 24 Hours (Table) 06/15/21 01:00 Urine Culture - Final Urine,Voided Assessment and Plan Plan: Assessment: 1. Acute kidney injury mostly prerenal improving with IV hydration. Receving NSAIDs. Creatinine was 2.4 and on admission and down to 1.1 yesterday. Baseline creatinine near 1. No proteinuria on UA. 2. Leaky nephrostomy tube. Urology following. 3. Benign hypertension. Blood pressure in the lower side. 4. Nephrolithiasis. 5. Anemia. Iron deficiency noted. 6. Hypokalemia from poor intake. Replaced. Plan: Discontinued nonsteroidals. Receiving IV iron. Avoid nephrotoxins. Continue to monitor renal function and urine output. Hold amlodipine for systolic blood pressure less than 110. Patient will need outpatient follow-up for further workup for nephrolithiasis.
--- NOTE | 2021-06-18 12:59 | P.PN ---
Subjective This is a pleasant 45 years old female with past medical history of hypertension, kidney disease, history of opioid addiction, anxiety, bipolar and depression She was recently in the hospital 06/07-06/10 for right sided staghorn stone and status post right-sided nephrostomy tube. Her PCP is Dr. Almeida and she sees the urologist yestrday patient started having leaking from her right urostomy tube, and tenderness around the area, she has decreased appetite yesterday and looks dehydrated and she was little confused during the night but she felt better after good sleep. She still able to urinate, denies dysuria but she has some difficulty to initiate urination at times. About half pack per day and consults and she agrees to quit and nicotine patch. No alcohol or illicit drugs. Vitas looks stable and afebrile. Labs showing slightly worsened leukocytosis at 15.8 compared to 12.2 on 06/10. Hemoglobin 7.8, last time hemoglobin dropped to 6.7 and received blood transfusion after the procedure, her hemoglobin was 8.6 upon discharge. I platelet count at 770. Creatinine is elevated at 2.4 and 1.9. Urine analysis consistent with UTI., covid not detected. KUB: Right nephrostomy tube and ureteral catheter. Right-sided multiple renal calculi and change. Constipation unchanged In the emergency room she received 1 dose of Toradol. And started on normal saline at 1:30 milliliters per hour 06/17/2021 Patient is awake and alert looks comfortable, she denies any urinary symptoms like no dysuria or urgency, no discomfort with urination. No abdominal pain or nausea vomiting or change in bowel habits. She has persistent right urostomy tube into place with some leaking expected. No need to be changed per urologist and follow-up as an outpatient Creatinine is back to normal today at 1.1 and her IV fluids were stopped. Urine culture came back negative and ceftriaxone was stopped. No fever and leukocytosis is improving down to 11.2. However her hemoglobin also dropped 7.8 down to 7.1 and status showing evidence of iron deficiency anemia. She was placed on IV iron and will increase her fiber sulfate twice a day. We will check her hemoglobin tomorrow Also we'll check for vitamin B12, folate, occult blood in his stool Also patient has incidental findings of right hand swelling secondary to IV infiltration, IV line was taken off and IV fluids were stopped. Discussed patient and staff to keep hand elevated with local measures 06/18/2021 Patient with no urinary symptoms today. Right urostomy tube is in place. Laurie ls are stable. Hemoglobin dropped yesterday 7.1 secondary to iron deficiency anemia. Receiving IV and oral iron Thank culture is negative and antibiotic stopped, but no urinary symptoms today. Consult surgery team for significant anemia. Patient states she did not have colonoscopy before Right hand swelling came down significantly Objective - Vital Signs Vital signs: Vital Signs Temp 98.4 F 06/18/21 07:00 Pulse 75 06/18/21 07:00 Resp 16 06/18/21 07:00 BP 123/78 06/18/21 07:00 Pulse Ox 95 06/18/21 07:00 Intake & Output 06/17/21 06/18/21 06/18/21 18:59 06:59 18:59 Other: Voiding Method Toilet Toilet Ileal Conduit (Right) # Voids 2 3 - Exam GENERAL: The patient is alert and oriented x3, not in any acute distress. Well developed, well nourished. HEENT: Pupils are round and equally reacting to light. EOMI. No scleral icterus. No conjunctival pallor. Normocephalic, atraumatic. No pharyngeal erythema. No thyromegaly. CARDIOVASCULAR: S1 and S2 present. No murmurs, rubs, or gallops. PULMONARY: Chest is clear to auscultation, no wheezing or crackles. ABDOMEN: Soft, nontender, nondistended, normoactive bowel sounds. No palpable organomegaly. -MUSCULOSKELETAL: No joint swelling or deformity. Right urostomy tube is in place with some leakage in the dressing; right hand swelling secondary to IV infiltration EXTREMITIES: No cyanosis, clubbing, or pedal edema. NEUROLOGICAL: Gross neurological examination did not reveal any focal deficits. SKIN: No rashes. no petechiae.m - Labs CBC & Chem 7: 06/17/21 06:50 06/17/21 06:50 Labs: Abnormal Lab Results - Last 24 Hours (Table) 06/17/21 Range/Units 06:50 Chloride 111 H (96-109) mmol/L Calcium 8.2 L (8.7-10.3) mg/dL Microbiology - Last 24 Hours (Table) 06/15/21 01:00 Urine Culture - Final Urine,Voided Assessment and Plan Assessment: Iron deficiency anemia Acute kidney injury, back to normal Most likely asymptomatic bacteriuria further than Acute urinary tract infection . Urine culture is negative right-sided partial staghorn calculi. Status post recent right nephrostomy tube. Her urostomy start leaking, which is expected. No need to be changed on follow-up as an outpatient per Urologist right hand swelling secondary to IV infiltration mild metabolic encephalopathy secondary to above. Resolved Hypertension history of recurrent urinary tract infection History of opioid addiction was on Suboxone, currently she states that she is on methadone constipation Plan: This is a pleasant 45 years old female who presents with acute kidney injury and possible UTI continue with iron both oral and IV. Check vitamin B12 and FOBT. Start oral Protonix Surgery consult for anemia Boating Safety Officer and urologists were consulted Labs and medication were reviewed.. Continue same treatment. Continue with symptomatic treatment. Resume home medication. Monitor lytes and vitals. DVT and GI prophylaxis. Further recommendations depends on the clinical course of the patient DVT prophylaxis: hold Subcutaneous heparin For severe anemia GI Prophylaxis: Ppi
--- NOTE | 2021-06-18 13:01 | P.GSCN ---
History of Present Illness Consult date: 06/18/21 Requesting physician: Joselo E Sheet History of present illness: CHIEF COMPLAINT: Iron deficiency anemia HISTORY OF PRESENT ILLNESS: This is a 45-year-old female who presented to the emergency department on 06/15/21 with complaints of leaking from her right urostomy tube which had been recently placed for right-sided staghorn stone and status post right-sided nephrostomy tube. Apparently last week the patient underwent a right percutaneous nephrostomy tube placement by Dr. Green, however due to scarring around the kidney and there was too much bleeding and therefore he could not proceeded with percutaneous nephrostolithotomy and once the bleeding was controlled the larger nephrostomy tube was placed. According to urology's notes patient has acute blood loss anemia related to urology surgery. Preoperative hemoglobin was 10. Apparently the patient was having some leaking from the urostomy tube with tenderness around the area, and decreased appetite. The patient has a past medical history of hypertension, chronic kidney stones, chronic kidney disease, history of opioid addiction, anxiety, and bipolar depre ssion. On admission the patient was noted to have a hemoglobin of 7.8, today's repeat hemoglobin is 7.1 and therefore general surgery was consult for iron deficiency anemia. The patient denies any signs or symptoms of GI blood loss. She denies any black stool, blood in her stool, denies any nausea, vomiting, or hematemesis. The patient does have a recent history of using ibuprofen 400 mg twice a day related to kidney stone pain. She has no previous history of peptic ulcer disease, GERD, gastritis, or esophagitis. She has no previous history of GI bleed. She has no previous history of EGD or colonoscopy. She denies any abdominal pain, and states her bowel movements are normal and brown. Patient currently getting iron infusion. PAST MEDICAL HISTORY: See list. PAST SURGICAL HISTORY: See list. MEDICATIONS: See list. ALLERGIES: See list. SOCIAL HISTORY: No illicit drug use. REVIEW OF SYSTEMS: CONSTITUTIONAL: Denies fever or chills. HEENT: Denies blurred vision, vision changes, or eye pain. Denies hemoptysis ENDOCRINE: Denies heat or cold intolerance. CARDIOVASCULAR: Denies chest pain or pressure. RESPIRATORY: No shortness of breath. GASTROINTESTINAL: Denies abdominal pain. Denies nausea or vomiting. NEURO: Denies history of seizures. PSYCH: No depression or suicidal ideation HEMATOLOGIC: Denies bleeding disorders. LYMPHATIC: The patient denies any lumps and bumps around the neck. GENITOURINARY: Denies any blood in urine or increased urinary frequency. MUSCULOSKELETAL: Denies myalgias. Denies joint swelling. Denies decreased range of motion beyond patients baseline. SKIN: Denies pruitis. Denies rash. PHYSICAL EXAM: VITAL SIGNS: Reviewed GENERAL: Well-developed in no acute distress. HEENT: No sclera icterus. Extraocular movements grossly intact. Moist buccal mucosa. Head is atraumatic, normocephalic. Hears conversational speech. No nasal d rainage. NECK: Supple without lymphadenopathy. CHEST: Non-labored respirations and equal bilateral excursions. CARDIOVASCULAR: Palpable 2+ radial pulses. ABDOMEN: Soft. Nondistended. Nontender MUSCULOSKELETAL: No clubbing or cyanosis. NEUROLOGIC: No focal or lateralizing signs. Cranial nerves II through XII grossly intact. PSYCH: Appropriate affect. Alert and oriented to person, place and time. SKIN: Well perfused. Good skin turgor. Right lower back with dressing clean dry and intact. LABORATORY DATA: WBC 11.2 hemoglobin 7.1 hematocrit 23.6 platelet count 662,000 sodium 142 potassium 4.2 BUN 15 creatinine 1.1 magnesium 1.8 iron 13 TIBC 272% saturation 4.78 IMAGING: KUB x-ray shows right-sided nephrostomy tube and ureteral catheter. Right side multiple renal calculi unchanged. Constipation unchanged. ASSESSMENT: 1. Iron deficiency anemia likely secondary to acute blood loss from urology surgery PLAN: - Agree with iron transfusion -Repeat CBC daily, transfuse for hemoglobin less than 7 -Clear liquid diet, nothing by mouth after midnight -Continue Protonix for GI prophylaxis -Bowel prep this afternoon -Patient scheduled for EGD and colonoscopy tomorrow The impression and plan of care has been dictated as directed. Dr. Cortez I performed a history and examination of this patient, discussed the same with the dictator. I agree with the dictator's note ,documented as a scribe. Any additional findings or plans will be noted. Past Medical History Past Medical History: Hypertension, Renal Disease Additional Past Medical History / Comment(s): History of opioid addiction. She was addicted to Vicodin for 10 years but has been on Suboxone since 2009. She was recently started on methadone when she was admitted to [facility]. History of Any Multi-Drug Resistant Organisms: None Reported Year Discovered:: December 2020 MDRO Source:: intestine Past Surgical History: Back Surgery, Orthopedic Surgery Additional Past Surgical History / Comment(s): Lithotripsy, back surgery, craniotomy due to brain swelling Past Anesthesia/Blood Transfusion Reactions: No Reported Reaction Past Psychological History: Anxiety, Bipolar, Depression Smoking Status: Current every day smoker Past Alcohol Use History: None Reported Past Drug Use History: Marijuana, Opiates - Past Family History Father Family Medical History: Coronary Artery Disease (CAD), Myocardial Infarction ([place]) Additional Family Medical History / Comment(s): CABG, [place] x2 2000 x7 stents to ananya, perm. pacemaker Mother History Unknown: Yes Medications and Allergies Home Medications Medication Instructions Recorded Confirmed Type Aspirin [Children's Aspirin] 81 mg PO DAILY 05/07/18 06/15/21 History Citalopram Hydrobromide [CeleXA] 20 mg PO HS 03/22/21 06/15/21 History Ferrous Sulfate [Iron] 325 mg PO HS 03/22/21 06/15/21 History Lurasidone [Latuda] 40 mg PO HS 03/22/21 06/15/21 History amLODIPine BESYLATE [Norvasc] 2.5 mg PO HS 03/22/21 06/15/21 History Cephalexin [Keflex] 500 mg PO Q8HR 5 Days #3 cap 06/10/21 06/15/21 Rx Cholecalciferol [Vitamin D3 (25 50 mcg PO DAILY 06/15/21 06/15/21 History Mcg = 1000 Iu)] Ibuprofen [Motrin] 600 mg PO TID PRN 06/15/21 06/15/21 History Methadone HCl [Methadone Intensol] 115 mg PO DAILY 06/15/21 06/15/21 History Ondansetron [Zofran ODT] 4 mg PO Q8H PRN 06/15/21 06/15/21 History Allergies Allergy/AdvReac Type Severity Reaction Status Date / Time acetaminophen [From Tylenol] AdvReac Unknown Verified 06/08/21 10:39 codeine AdvReac Nausea & Verified 06/08/21 10:39 Vomiting Surgical - Exam Vital Signs Temp Pulse Resp BP Pulse Ox 98.8 F 90 18 130/51 96 06/15/21 22:03 06/15/21 22:03 06/15/21 22:03 06/15/21 22:03 06/15/21 22:03 Results - Labs 06/17/21 06:50 06/18/21 05:46 Abnormal Lab Results - Last 24 Hours (Table) 06/17/21 06/17/21 Range/Units 06:50 06:50 WBC 11.21 H (4.50-10.00) X 10*3/uL RBC 2.54 L (4.10-5.20) X 10*6/uL Hgb 7.1 L (12.0-15.0) g/dL Hct 23.6 L (37.2-46.3) % MCHC 30.1 L (32.0-37.0) g/dL RDW 14.6 H (11.5-14.5) % Plt Count 662 H (140-440) X 10*3/uL MPV 8.4 L (9.5-12.2) fL Eosinophils # 0.37 H (0.04-0.35) X 10*3/uL Chloride 111 H (96-109) mmol/L Calcium 8.2 L (8.7-10.3) mg/dL Microbiology - Last 24 Hours (Table) 06/15/21 01:00 Urine Culture - Final Urine,Voided Diabetes panel 06/17/21 Range/Units 06:50 Sodium 142 (135-145) mmol/L Potassium 4.2 (3.5-5.5) mmol/L Chloride 111 H (96-109) mmol/L Carbon Dioxide 23.1 (21.6-31.8) mmol/L BUN 15.0 (9.0-27.0) mg/dL Creatinine 1.1 (0.6-1.5) mg/dL Glucose 84 (70-110) mg/dL Calcium 8.2 L (8.7-10.3) mg/dL Calcium panel 06/17/21 Range/Units 06:50 Calcium 8.2 L (8.7-10.3) mg/dL Pituitary panel 06/17/21 Range/Units 06:50 Sodium 142 (135-145) mmol/L Potassium 4.2 (3.5-5.5) mmol/L Chloride 111 H (96-109) mmol/L Carbon Dioxide 23.1 (21.6-31.8) mmol/L BUN 15.0 (9.0-27.0) mg/dL Creatinine 1.1 (0.6-1.5) mg/dL Glucose 84 (70-110) mg/dL Calcium 8.2 L (8.7-10.3) mg/dL Adrenal panel 06/17/21 Range/Units 06:50 Sodium 142 (135-145) mmol/L Potassium 4.2 (3.5-5.5) mmol/L Chloride 111 H (96-109) mmol/L Carbon Dioxide 23.1 (21.6-31.8) mmol/L BUN 15.0 (9.0-27.0) mg/dL Creatinine 1.1 (0.6-1.5) mg/dL Glucose 84 (70-110) mg/dL Calcium 8.2 L (8.7-10.3) mg/dL
[2021-06-18] MEDS ORDERED: PEG 3350-NA SULF,BICARB,CL/KCL 4,000 ML BOTTLE PO ONE (13:46)
[2021-06-18 14:41] LABS: African American GFR (CKD) 78.2 (60.0-200.0); Anion Gap 9.6 mmol/L (4.00-12.00); Calcium 8.5 mg/dL (8.7-10.3); Carbon Dioxide 21.4 mmol/L (21.6-31.8); Magnesium 1.8 mg/dL (1.5-2.4); Non-African American GFR(CKD) 67.5 (60.0-200.0); Potassium 4.2 mmol/L (3.5-5.5)
[2021-06-18 14:51] LABS: Folate, Serum 4.6 ng/mL
[2021-06-18 17:31] LABS: Ferritin 47.1 ng/mL (10.0-291.0)
[2021-06-18] MEDS ORDERED: CYANOCOBALAMIN 1,000 MCG/ML 1 ML VIAL IM ONE ×2 (21:16→22:00)
[2021-06-18] MEDS: CITALOPRAM HYDROBROMIDE 20 MG TAB PO SCH (21:54)
[2021-06-18] MEDS: LURASIDONE 40 MG TAB PO SCH (21:54)
[2021-06-18] MEDS: FOLIC ACID 1 MG TAB PO SCH (21:54)
[2021-06-18] MEDS: amLODIPine 2.5 MG TAB PO SCH (21:54)
[2021-06-19 02:17] VITALS: TEMP 98.3
[2021-06-19 06:17] LABS: African American GFR (CKD) >90 (>60 ml/min/1.73 sqM); Anion Gap 9 mmol/L; Blood Urea Nitrogen 12 mg/dL (7-17); Calcium 9.1 mg/dL (8.4-10.2); Carbon Dioxide 23 mmol/L (22-30); Chloride 107 mmol/L (98-107); Glucose 102 mg/dL (74-99); Non-African American GFR(CKD) 80 (>60 ml/min/1.73 sqM); Sodium 139 mmol/L (137-145)
[2021-06-19] MEDS: FERROUS SULFATE 325 MG TAB PO SCH (08:04)
[2021-06-19] MEDS: CHOLECALCIFEROL 25 MCG (1000 IU) TABLET PO SCH (08:04)
[2021-06-19] MEDS: FOLIC ACID 1 MG TAB PO SCH (08:04)
[2021-06-19] MEDS: ASPIRIN 81 MG PO SCH (08:04)
[2021-06-19] MEDS: METHADONE 10 MG TAB PO SCH (08:05)
[2021-06-19] MEDS: PANTOPRAZOLE 40 MG TABLET PO SCH ×2 (08:05→08:24)
[2021-06-19 08:19] VITALS: BP 127/74; PULSE 78; RESP 17
[2021-06-19] MEDS: SODIUM FERRIC GLUCONAT-SUCROSE 125 MG in SODIUM CHLORIDE 0.9% 100 ML IVPB SCH (08:24)
[2021-06-19] MEDS: NICOTINE 21MG/24HR PATCH TRANSDERM SCH (08:24)
[2021-06-19] MEDS ORDERED: CYANOCOBALAMIN 500 MCG TAB PO SCH (09:00)
--- NOTE | 2021-06-19 10:17 | P.PN ---
Subjective Patient is seen in follow-up for acute kidney injury on chronic kidney disease. Renal function improved and is back to baseline. No active complaints. Good urine output. Wants to go home. Vital signs are stable. General: The patient appeared well nourished and normally developed. HEENT: Head exam is unremarkable. LUNGS: Breath sounds decreased. HEART: Rate and Rhythm are regular. ABDOMEN: Soft, no distention. EXTREMITITES: No edema. Objective - Vital Signs Vital signs: Vital Signs Temp 98.3 F 06/19/21 07:00 Pulse 78 06/19/21 07:00 Resp 17 06/19/21 07:00 BP 127/74 06/19/21 07:00 Pulse Ox 98 06/19/21 07:00 Intake & Output 06/18/21 06/19/21 06/19/21 18:59 06:59 18:59 Intake Total 240 Balance 240 Intake: Oral 240 Other: Voiding Method Ileal Conduit (Right) Ileal Conduit (Right) Ileal Conduit (Right) # Voids 2 2 - Labs CBC & Chem 7: 06/17/21 06:50 06/19/21 05:32 Labs: Abnormal Lab Results - Last 24 Hours (Table) 06/18/21 06/19/21 Range/Units 05:46 05:32 Carbon Dioxide 21.4 L (21.6-31.8) mmol/L Glucose 102 H (74-99) mg/dL Calcium 8.5 L (8.7-10.3) mg/dL Assessment and Plan Plan: Assessment: 1. Acute kidney injury mostly prerenal improving with IV hydration. Receving NSAIDs. Creatinine was 2.4 and on admission and down to 0.87 today. Baseline c reatinine near 1. No proteinuria on UA. 2. Leaky nephrostomy tube. Urology following. 3. Benign hypertension. 4. Nephrolithiasis. 5. Anemia. Iron deficiency noted. 6. Hypokalemia from poor intake. Replaced. Plan: Discontinued nonsteroidals. Receiving IV iron. Avoid nephrotoxins. Continue to monitor renal function and urine output. Hold amlodipine for systolic blood pressure less than 110. Patient will need outpatient follow-up for further workup for nephrolithiasis.
[2021-06-19 10:28] LABS: HCT 25.8 % (37.2-46.3); HGB 7.8 g/dL (12.0-15.0); MCH 28.1 pg (27.0-32.0); MCHC 30.2 g/dL (32.0-37.0); MCV 92.8 fL (80.0-97.0); Mean Platelet Volume 8.3 fL (9.5-12.2); Platelet Count 753 X 10*3/uL (140-440); RBC 2.78 X 10*6/uL (4.10-5.20); RDW 14.7 % (11.5-14.5); WBC 12.52 X 10*3/uL (4.50-10.00)
--- NOTE | 2021-06-19 12:10 | P.PN ---
Subjective Progress Note Date: 06/19/21 CHIEF COMPLAINT: Iron deficiency anemia HISTORY OF PRESENT ILLNESS: Patient was seen and examined. She denies any black stool or blood in her stool. She denies any abdominal pain, nausea, or vomiting. She was tentatively scheduled for EGD and colonoscopy today however patient refused proceeding at this time. Patient is scheduled for surgery with urology on Friday as an outpatient. WBC 12.5 to, hemoglobin 7.8 up from 7.1 yesterday. Patient currently getting IV iron infusion. PHYSICAL EXAM: VITAL SIGNS: Reviewed. GENERAL: Well-developed in no acute distress. HEENT: No sclera icterus. Extraocular movements grossly intact. Moist buccal mucosa. Head is atraumatic, normocephalic. ABDOMEN: Soft. Nondistended. Nontender. NEUROLOGIC: Alert and oriented. Cranial nerves II through XII grossly intact. ASSESSMENT: 1. Iron deficiency anemia likely secondary to acute blood loss from urology surgery, however cannot rule out GI source PLAN: -Agree with the iron transfusion -Patient was scheduled for EGD and colonoscopy, at this time patient is declining -Diet as tolerated -Continue Protonix for GI prophylaxis -Patient is cleared for discharge from Gen. surgery, patient to follow-up in one week for possible outpatient endoscopies The impression and plan of care has been dictated as directed. I performed a history and examination of this patient, discussed the same with the dictator. I agree with the dictator's note ,documented as a scribe. Any additional findings or plans will be noted. Objective - Vital Signs Vital signs: Vital Signs Temp 98.3 F 06/19/21 07:00 Pulse 78 06/19/21 07:00 Resp 17 06/19/21 07:00 BP 127/74 06/19/21 07:00 Pulse Ox 98 06/19/21 07:00 Intake & Output 06/18/21 06/19/21 06/19/21 18:59 06:59 18:59 Intake Total 240 Balance 240 Intake: Oral 240 Other: Voiding Method Ileal Conduit (Right) Ileal Conduit (Right) Ileal Conduit (Right) # Voids 2 2 - Labs CBC & Chem 7: 06/19/21 05:26 06/19/21 05:32 Labs: Abnormal Lab Results - Last 24 Hours (Table) 06/18/21 06/19/21 06/19/21 Range/Units 05:46 05:26 05:32 WBC 12.52 H (4.50-10.00) X 10*3/uL RBC 2.78 L (4.10-5.20) X 10*6/uL Hgb 7.8 L (12.0-15.0) g/dL Hct 25.8 L (37.2-46.3) % MCHC 30.2 L (32.0-37.0) g/dL RDW 14.7 H (11.5-14.5) % Plt Count 753 H (140-440) X 10*3/uL Plt Count Comment INCREASED A MPV 8.3 L (9.5-12.2) fL Carbon Dioxide 21.4 L (21.6-31.8) mmol/L Glucose 102 H (74-99) mg/dL Calcium 8.5 L (8.7-10.3) mg/dL
--- NOTE | 2021-06-19 15:04 | P.DS ---
Providers Date of admission: 06/16/21 00:49 Attending physician: Olga Porter MD Consults: 06/16/21 00:51 Consult Physician Routine Consulting Provider: Kishore South Consult Reason/Comments: Nephrostomy tube problem Do you want consulting provider notified?: Yes Consult Physician Routine Consulting Provider: Mikayla Izquierdo Consult Reason/Comments: acute kidney injury Do you want consulting provider notified?: Yes 06/18/21 09:10 Consult Physician Urgent Consulting Provider: Eloy Cortez Consult Reason/Comments: [place] Do you want consulting provider notified?: Yes Primary care physician: Stated None Hospital Course: Diagnoses: Iron deficiency anemia Acute kidney injury, back to normal Most likely asymptomatic bacteriuria further than Acute urinary tract infection . Urine culture is negative right-sided partial staghorn calculi. Status post recent right nephrostomy tube. Her urostomy start leaking, which is expected. No need to be changed on follow-up as an outpatient per Urologist right hand swelling secondary to IV infiltration mild metabolic encephalopathy secondary to above. Resolved Hypertension history of recurrent urinary tract infection History of opioid addiction was on Suboxone, currently she states that she is on methadone constipation Hospital course: This is a pleasant 45 years old female with past medical history of hypertension, kidney disease, history of opioid addiction, anxiety, bipolar and depression She was recently in the hospital 06/07-06/10 for right sided staghorn stone and status post right-sided nephrostomy tube. Her PCP is Dr. Beatty and she sees the urologist On admission patient started having leaking from her right urostomy tube, and tenderness around the area, she has decreased appetite and looks dehydrated and she was little confused during the night but she felt better after good sleep. She still able to urinate, denies dysuria but she has some difficulty to initiate urination at times. Patient has been evaluated by urologist who checked her urostomy tube which is found in good position and does not need to be replaced, and he stated that leakage could be expected at certain times and just need need to keep it in a Place and follow-up as an outpatient. Urologist agrees the patient for discharge and follow-up as an outpatient in 1 week for nephrostolithotomy. Patient told me today that she has an appointment on this Friday for procedure. Biological Lab Technician also evaluated the patient and cleared her for discharge with recommendation for outpatient follow-up to check for her kidney stone. Patient improved with hydration and she became asymptomatic over the last 2 days. However hemoglobin dropped to 11.2 down to 7.1. Workup showing iron deficiency anemia and low vitamin B12 and folate. After placing all these 3, iron, vitamin B12 and folate her hemoglobin improved up to 7.8 today. Surgeon recommended EGD/colonoscopy as she does not have one done before however patient declined the procedure today and she preferred to address it as an outpatient after fixing her urostomy tube in one week. risks are explained for her including but not limited to cancer and she is aware of this risk and she is willing to do these procedures as an outpatient and she confirmed to me today patient remains asymptomatic, she is fully awake and oriented. She denies chest pain or dyspnea. She denies any urinary symptoms. No abdominal pain or change in bowel habits. No fever Patient was cleared for discharge by all consultants including urologist, adult health clinical nurse specialist, and general surgeon Problems and management plan were discussed with the patient and he verbalized understanding and acceptance Patient was found stable and can be discharged home however he needs follow-up as an outpatient. Patient was instructed to follow up with PCP within one week and She agrees with the appointments made for her on 06/21 Dr. Beatty stating she will follow-up. Patient also instructed to follow up with adult health clinical nurse specialist Dr. Neri and she agrees with that appointment on 06/29. Patient also was instructed to follow up with urologist Dr. Brandon in one week and Dr. Swain general surgeon for possible EGD/colonoscopy as an outpatient in 1 week and she agrees to call and make appointments Gen: patient is a AAOx3, no distress CVS: S1-S2, RRR, no murmur Lungs: B/L CTA, no wheezing Abdomen: soft, no distention, no tenderness, positive bowel sounds. -Musculoskeletal: Right back nephrostomy tube is in place with no leakage Extremity: no leg edema or induration Time spent more than 35 minutes Patient Condition at Discharge: Stable Plan - Discharge Summary Discharge Rx Participant: No New Discharge Prescriptions: New Folic Acid 1 mg PO DAILY #30 tab Ferrous Sulfate [Iron (65 MG Elemental)] 325 mg PO BID #60 tab Pantoprazole [Protonix] 40 mg PO AC-BRKFST #30 tab Cyanocobalamin [Vitamin B-12] 1,000 mcg PO DAILY #60 tab Continue Aspirin [Children's Aspirin] 81 mg PO DAILY Citalopram Hydrobromide [CeleXA] 20 mg PO HS amLODIPine BESYLATE [Norvasc] 2.5 mg PO HS Lurasidone [Latuda] 40 mg PO HS Ondansetron [Zofran ODT] 4 mg PO Q8H PRN PRN Reason: Nausea Methadone HCl [Methadone Intensol] 115 mg PO DAILY Cholecalciferol [Vitamin D3 (25 Mcg = 1000 Iu)] 50 mcg PO DAILY Discontinued Ferrous Sulfate [Iron] 325 mg PO HS Cephalexin [Keflex] 500 mg PO Q8HR 5 Days #3 cap Ibuprofen [Motrin] 600 mg PO TID PRN PRN Reason: Pain Discharge Medication List Aspirin [Children's Aspirin] 81 mg PO DAILY 05/07/18 [History] Citalopram Hydrobromide [CeleXA] 20 mg PO HS 03/22/21 [History] Lurasidone [Latuda] 40 mg PO HS 03/22/21 [History] amLODIPine BESYLATE [Norvasc] 2.5 mg PO HS 03/22/21 [History] Cholecalciferol [Vitamin D3 (25 Mcg = 1000 Iu)] 50 mcg PO DAILY 06/15/21 [History] Methadone HCl [Methadone Intensol] 115 mg PO DAILY 06/15/21 [History] Ondansetron [Zofran ODT] 4 mg PO Q8H PRN 06/15/21 [History] Cyanocobalamin [Vitamin B-12] 1,000 mcg PO DAILY #60 tab 06/19/21 [Rx] Ferrous Sulfate [Iron (65 MG Elemental)] 325 mg PO BID #60 tab 06/19/21 [Rx] Folic Acid 1 mg PO DAILY #30 tab 06/19/21 [Rx] Pantoprazole [Protonix] 40 mg PO AC-BRKFST #30 tab 06/19/21 [Rx] Follow up Appointment(s)/Referral(s): Miroslava Beatty MD [REFERRING] - 06/21/21 2:10 pm Sanjeev Aguiar DO [STAFF PHYSICIAN] - 06/29/21 3:20 pm Kishore South MD [STAFF PHYSICIAN] - 1 Week Eloy Cortez MD [STAFF PHYSICIAN] - 1 Week Activity/Diet/Wound Care/Special Instructions: Heart healthy diet Activity is restricted till you see your doctor we Recommend to avoid NSAIDs, like no ibuprofen, Motrin, no naproxen, no Mobic we Recommend to check your vitamin B12 level in 1-2 months with your doctor Discharge Disposition: HOME SELF-CARE
--- NOTE | 2021-07-11 04:46 | ED ---
Abdominal Pain HPI - General Chief Complaint: Abdominal Pain Stated Complaint: Post-op incision pain Time Seen by Provider: 06/15/21 22:06 Source: patient, EMS Mode of arrival: EMS Limitations: no limitations - History of Present Illness Initial Comments: Patient is a 45-year-old woman who presents with complaints of right flank pain and leaking urine from her urostomy tube. Patient states she has a large right- sided ureteral stone and therefore had a urostomy tube placed. After she was sent home yesterday over the course of the night she started to develop severe pain and is now worried because she is having drainage around the tube. Patient does note that she would like pain relief but is declining narcotic pain relief as she is on methadone. Patient has not noted fever or chills. She also has some nausea. MD Complaint: flank pain -: hour(s) Location: R flank Migration to: no migration Severity: severe Quality: aching, sharp Consistency: constant Improves With: nothing Worsens With: nothing Associated Symptoms: nausea - Related Data Home Medications Medication Instructions Recorded Confirmed Aspirin [Children's Aspirin] 81 mg PO DAILY 05/07/18 06/22/21 Citalopram Hydrobromide [CeleXA] 20 mg PO HS 03/22/21 06/22/21 Lurasidone [Latuda] 40 mg PO HS 03/22/21 06/22/21 amLODIPine BESYLATE [Norvasc] 2.5 mg PO HS 03/22/21 06/22/21 Cholecalciferol [Vitamin D3 (25 50 mcg PO DAILY 06/15/21 06/22/21 Mcg = 1000 Iu)] Methadone HCl [Methadone Intensol] 115 mg PO DAILY 06/15/21 06/22/21 Ondansetron [Zofran ODT] 4 mg PO Q8H PRN 06/15/21 06/22/21 Cephalexin [Keflex] 500 mg PO Q12HR 06/20/21 06/22/21 Gabapentin 600 mg PO TID 06/20/21 06/22/21 Previous Rx's Medication Instructions Recorded Cyanocobalamin [Vitamin B-12] 1,000 mcg PO DAILY #60 tab 06/19/21 Ferrous Sulfate [Iron (65 MG 325 mg PO BID #60 tab 06/19/21 Elemental)] Folic Acid 1 mg PO DAILY #30 tab 06/19/21 Pantoprazole [Protonix] 40 mg PO AC-BRKFST #30 tab 06/19/21 Cephalexin [Keflex] 500 mg PO Q8HR #15 cap 06/23/21 Gabapentin [Neurontin] 100 mg PO TID 3 Days #9 cap 06/23/21 Ketorolac [Toradol] 10 mg PO Q6HR PRN #15 tab 06/23/21 Allergies Allergy/AdvReac Type Severity Reaction Status Date / Time acetaminophen [From Tylenol] AdvReac Unknown Verified 06/22/21 11:22 codeine AdvReac Nausea & Verified 06/22/21 11:22 Vomiting Review of Systems ROS Statement: Those systems with pertinent positive or pertinent negative responses have been documented in the HPI. ROS Other: All systems not noted in ROS Statement are negative. Constitutional: Denies: fever, chills, weakness Respiratory: Denies: cough, dyspnea Cardiovascular: Denies: chest pain, palpitations, edema Gastrointestinal: Reports: as per HPI, abdominal pain, nausea. Denies: vomiting, diarrhea, constipation, melena, hematochezia Genitourinary: Reports: as per HPI, other (Urostomy tube leakage). Denies: dysuria, frequency, hematuria Musculoskeletal: Denies: back pain Skin: Denies: rash Neurological: Denies: headache, weakness, numbness Past Medical History Past Medical History: Hypertension, Renal Disease Additional Past Medical History / Comment(s): History of opioid addiction. She was addicted to Vicodin for 10 years but has been on Suboxone since 2009. She was recently started on methadone when she was admitted to [facility]. History of Any Multi-Drug Resistant Organisms: None Reported Date of last positivie culture/infection: December 2020 MDRO Source:: intestine Past Surgical History: Back Surgery, Orthopedic Surgery Additional Past Surgical History / Comment(s): Lithotripsy, back surgery, craniotomy due to brain swelling Past Anesthesia/Blood Transfusion Reactions: No Reported Reaction Past Psychological History: Anxiety, Bipolar, Depression Smoking Status: Current every day smoker Past Alcohol Use History: None Reported Past Drug Use History: Marijuana, Opiates - Past Family History Father Family Medical History: Coronary Artery Disease (CAD), Myocardial Infarction ([place]) Additional Family Medical History / Comment(s): CABG, [place] x2 2000 x7 stents total, perm. pacemaker Mother History Unknown: Yes General Exam Limitations: no limitations General appearance: alert, in distress (Due to flank pain) Head exam: Present: atraumatic, normocephalic Eye exam: Present: normal appearance. Absent: scleral icterus, conjunctival injection ENT exam: Present: normal oropharynx Neck exam: Present: normal inspection Respiratory exam: Present: normal lung sounds bilaterally. Absent: respiratory distress, wheezes, rales, rhonchi, stridor Cardiovascular Exam: Present: regular rate, normal rhythm, normal heart sounds. Absent: systolic murmur, diastolic murmur, rubs, gallop GI/Abdominal exam: Present: soft. Absent: distended, tenderness, guarding, rebound, rigid, mass Extremities exam: Present: normal inspection, normal capillary refill. Absent: pedal edema, calf tenderness Back exam: Present: normal inspection, other (There is a right-sided nephrostomy tube which is in place. No erythema or warmth. No sign of infection. There is some amount of leakage onto the dressing from around the tube.). Absent: CVA tenderness (L), vertebral tenderness Neurological exam: Present: alert Skin exam: Present: warm, dry, intact, normal color. Absent: rash, erythema Course Vital Signs 06/15/21 06/16/21 06/16/21 22:03 00:54 02:52 Temperature 98.8 F Pulse Rate 90 80 79 Respiratory 18 16 20 Rate Blood Pressure 130/51 139/73 144/79 O2 Sat by Pulse 96 95 93 L Oximetry 06/16/21 06:45 Temperature Pulse Rate 73 Respiratory 18 Rate Blood Pressure 137/98 O2 Sat by Pulse 95 Oximetry Medical Decision Making - Medical Decision Making Patient's 45-year-old woman with right urostomy tube secondary to large obstructive ureteral stone. She is having marked amount of pain. More concerning is that her creatinine appears to have gone from 0.9 up to 2.5. There does not appear to be evidence of infection at the site. Given the change in her renal function will admit patient to be reviewed by urology. - Lab Data Result diagrams: 06/19/21 05:26 06/19/21 05:32 Lab Results 06/15/21 06/15/21 06/15/21 Range/Units 01:00 23:01 23:01 WBC 15.8 H (3.8-10.6) k/uL RBC 2.74 L (3.80-5.40) m/uL Hgb 7.8 L (11.4-16.0) gm/dL Hct 24.0 L (34.0-46.0) % MCV 87.6 (80.0-100.0) fL MCH 28.5 (25.0-35.0) pg MCHC 32.5 (31.0-37.0) g/dL RDW 15.9 H (11.5-15.5) % Plt Count 770 H D (150-450) k/uL MPV 6.3 Neutrophils % 71 % Lymphocytes % 20 % Monocytes % 3 % Eosinophils % 3 % Basophils % 0 % Neutrophils # 11.3 H (1.3-7.7) k/uL Lymphocytes # 3.1 (1.0-4.8) k/uL Monocytes # 0.5 (0-1.0) k/uL Eosinophils # 0.5 (0-0.7) k/uL Basophils # 0.1 (0-0.2) k/uL Hypochromasia Slight Poikilocytosis Slight Sodium 139 (137-145) mmol/L Potassium 4.1 (3.5-5.1) mmol/L Chloride 103 (98-107) mmol/L Carbon Dioxide 24 (22-30) mmol/L Anion Gap 12 mmol/L BUN 17 (7-17) mg/dL Creatinine 2.48 H (0.52-1.04) mg/dL Est GFR (CKD-EPI)AfAm 26 (>60 ml/min/1.73 sqM) Est GFR (CKD-EPI)NonAf 23 (>60 ml/min/1.73 sqM) Glucose 103 H (74-99) mg/dL Calcium 9.0 (8.4-10.2) mg/dL Urine Color Light Yellow Urine Appearance Cloudy H (Clear) Urine pH 5.5 (5.0-8.0) Ur Specific Beatrice 1.008 (1.001-1.035) Urine Protein Negative (Negative) Urine Glucose (UA) Negative (Negative) Urine Ketones Negative (Negative) Urine Blood Trace H (Negative) Urine Nitrite Negative (Negative) Urine Bilirubin Negative (Negative) Urine Urobilinogen <2.0 (<2.0) mg/dL Ur Leukocyte Esterase Large H (Negative) Urine RBC 3 (0-5) /hpf Urine WBC 63 H (0-5) /hpf Ur Squamous Epith Cells 9 H (0-4) /hpf Urine Bacteria Occasional H (None) /hpf Urine Mucus Rare H (None) /hpf Disposition Clinical Impression: Acute kidney injury, Anemia, Flank pain Disposition: ADMITTED IP TO THIS HOSP Condition: Stable Is patient prescribed a controlled substance at d/c from ED?: No
== END 2021-06-19 14:37 | disposition home or self-care (01) ==
LOC: EC 22:02 → 6NMEDSUR 06-16 00:49
PROVIDERS: ADMIT Internal Medicine; ATTEND Internal Medicine
DX: N17.9 Acute kidney failure, unspecified (principal); N20.2 Calculus of kidney with calculus of ureter; D50.9 Iron deficiency anemia, unspecified; G93.41 Metabolic encephalopathy; T83.032A Leakage of nephrostomy catheter, initial encounter; T83.028A Displacement of other urinary catheter, initial encounter; D62 Acute posthemorrhagic anemia; I12.9 Hypertensive chronic kidney disease with stage 1 through stage 4 chronic kidney disease, or unspecified chronic kidney disease; N18.9 Chronic kidney disease, unspecified; E87.6 Hypokalemia; E86.0 Dehydration; K59.00 Constipation, unspecified; F31.30 Bipolar disorder, current episode depressed, mild or moderate severity, unspecified; F41.9 Anxiety disorder, unspecified; F11.20 Opioid dependence, uncomplicated; N39.0 Urinary tract infection, site not specified; T80.89XA Other complications following infusion, transfusion and therapeutic injection, initial encounter; R22.31 Localized swelling, mass and lump, right upper limb; Z20.822 Contact with and (suspected) exposure to COVID-19; Z79.82 Long term (current) use of aspirin; F17.210 Nicotine dependence, cigarettes, uncomplicated; Z79.899 Other long term (current) drug therapy; Z88.5 Allergy status to narcotic agent; Z88.6 Allergy status to analgesic agent; Z87.442 Personal history of urinary calculi; Z96.0 Presence of urogenital implants; Z87.440 Personal history of urinary (tract) infections; Z98.890 Other specified postprocedural states; Z82.49 Family history of ischemic heart disease and other diseases of the circulatory system
CPT/HCPCS: 96361; 96365; 96366 ×2; 96367; 96372 ×2; 99285; 36415; 80048 ×5; 82607; 82728; 82746; 83540; 83550; 83735 ×3; 85025 ×2; 85027; 81001; 87086; 87635; 74018; G0378 ×4; S4990 ×2; J3420; J0696 ×2; J2916 ×3; S0109 ×4; J1885; 93005

== ENCOUNTER → 2021-06-20 | Outpatient (CLI) | payer OTHER ==
[2021-06-20 12:42] LABS: Appearance,Urine Cloudy (Clear); Bacteria,Urine Rare /hpf; Bilirubin,Urine Negative (Negative); Blood,Urine Negative (Negative); Color,Urine Light Yellow; Glucose,Urine (UA) Negative (Negative); Hyaline Casts,Urine 1 /lpf (0-2); Ketones,Urine Negative (Negative); Leukocyte Esterase,Urine Moderate (Negative); Mucus,Urine Rare /hpf; Nitrite,Urine Negative (Negative); PH, Urine 6.5 (5.0-8.0); Protein,Urine Negative (Negative); RBC,Urine 1 /hpf (0-5); Specific Gravity,Urine 1.005 (1.001-1.035); Squamous Epithelial Cell,Urine 13 /hpf (0-4); Urobilinogen,Urine <2.0 mg/dL (<2.0); WBC,Urine 18 /hpf (0-5)
== END | disposition home or self-care (01) ==
LOC: LABPAT 06-15 08:58
PROVIDERS: ATTEND Urology
DX: Z01.812 Encounter for preprocedural laboratory examination (principal); N20.0 Calculus of kidney; R31.29 Other microscopic hematuria
CPT/HCPCS: 36415; 81001; 87086

== ENCOUNTER 2021-06-22 10:40 | Day surgery (SDC) | payer OTHER ==
[2021-06-20 10:25] VITALS: BMI 31.1
--- NOTE | 2021-06-21 17:38 | P.HPIHPCON ---
History of Present Illness H&P Date: 06/21/21 This is a 45 yo female with hx of right sided partial staghorn, she has hx of recurrent UTI and she is symptomatic from her stone. She underwent attempted PCNL on June 08, the case had to be aborted due to significant bleeding after any access. At that time a nephrostomy tube was placed and the case was aborted. discussed with her the option of doing second look PCNL, She agreed to proceed. Discussed the risk of bleeding, infection, injury to nearby organs which include injury to liver, bowel and lung. Discussed risk of anesthesia. She does have history of PCNL in the past, I reviewed her CT with her and discussed some of the stone do appear to be outside the collecting system, discussed it might not be possible to remove the stones. Discussed risk from anesthesia. Discussed with her similar bleeding is encountered in the surgery, then willl abort the surgery discussed with her also that her last in hemoglobin is 7.8, and might require blood transfusion during surgery. She understood all risks and agreed to proceed. Consent for Procedure: I have explained the operation/procedure to the patient, including the risks, benefits, side effects, alternative therapies (including not receiving the proposed treatment or service), the likelihood of the patient achieving his/her goals, and potential recuperation problems for the procedure/sedation/analgesia, as well as any blood products, if indicated. I also explained to the patient the risks, benefits and side effects of the alternatives, as well as the risks related to not receiving the proposed procedure, care, treatment, or services. Past Medical History Past Medical History: Hypertension, Renal Disease Additional Past Medical History / Comment(s): History of opioid addiction. She was addicted to Vicodin for 10 years but has been on Suboxone since 2009. She was recently started on methadone when she was admitted to [place]. kidney stones with recent ICU adm on 06/08/21 d/t bleeding,received blood transfusion, has urostomy tube readmitted on 06/16/21 r/t nephrostomy tube problems, also experining hyponatremia, and low hemogloin, and uti recent adm to [facility] d/t liver failure r/t tylenol overdose (per pt "unintentional") is now recovered per pt, iron deficiency anemia,. 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 Past Anesthesia/Blood Transfusion Reactions: No Reported Reaction Additional Past Anesthesia/Blood Transfusion Reaction / Comment(s): blood transfusions without reaction Smoking Status: Current every day smoker - Past Family History Father Family Medical History: Deep Vein Thrombosis (DVT) Additional Family Medical History / Comment(s): Heart surgery. Mother History Unknown: Yes Medications and Allergies Home Medications Medication Instructions Recorded Confirmed Type RX: Aspirin [Children's Aspirin] 81 mg PO DAILY 05/07/18 06/20/21 History RX: Citalopram Hydrobromide 20 mg PO HS 03/22/21 06/20/21 History [CeleXA] RX: Lurasidone [Latuda] 40 mg PO HS 03/22/21 06/20/21 History RX: amLODIPine BESYLATE [Norvasc] 2.5 mg PO HS 03/22/21 06/20/21 History RX: Cholecalciferol [Vitamin D3 50 mcg PO DAILY 06/15/21 06/20/21 History (25 Mcg = 1000 Iu)] RX: Methadone HCl [Methadone 115 mg PO DAILY 06/15/21 06/20/21 History Intensol] RX: Ondansetron [Zofran ODT] 4 mg PO Q8H PRN 06/15/21 06/20/21 History RX: Cyanocobalamin [Vitamin B-12] 1,000 mcg PO DAILY #60 tab 06/19/21 06/20/21 Rx RX: Ferrous Sulfate [Iron (65 MG 325 mg PO BID #60 tab 06/19/21 06/20/21 Rx Elemental)] RX: Folic Acid 1 mg PO DAILY #30 tab 06/19/21 06/20/21 Rx RX: Pantoprazole [Protonix] 40 mg PO AC-BRKFST #30 tab 06/19/21 06/20/21 Rx Cephalexin [Keflex] 500 mg PO Q12HR 06/20/21 06/20/21 History RX: Gabapentin 600 mg PO TID 06/20/21 06/20/21 History Allergies Allergy/AdvReac Type Severity Reaction Status Date / Time acetaminophen [From Tylenol] AdvReac Unknown Verified 06/20/21 09:58 codeine AdvReac Nausea & Verified 06/20/21 09:58 Vomiting
[~2021-06-22 10:40] MED LIST changes: -GENTAMICIN 120 MG in SODIUM CHLORIDE 0.9% 100 ML IVPB PRN; +GENTAMICIN 90 MG in SODIUM CHLORIDE 0.9% 100 ML IVPB PRN; +HYDROmorphone 0.5 MG/0.5 ML SYRINGE IVP PRN; -LACTATED RINGERS 1,000 ML IV SCH; +LIDOCAINE 1% (10MG/ML) FOR IV START INTRADERMA PRN; -ONDANSETRON 4 MG/2 ML VIAL IVP ONE; -SCOPOLAMINE 1.5MG/72HR PATCH TRANSDERM ONE; -fentaNYL (PF) 50 MCG/ML 2 ML AMP IV PRN
--- NOTE | 2021-06-22 11:14 | XR ---
KUB HISTORY: Kidney stones Prior KUB and 2 images correlated prior exam 06/15/2021 Exam is stable. Indwelling Mal[place]ot nephrostomy tube, calcifications within the right kidney greater t scott left are again noted. Retained fecal debris is present throughout the distribution of the colon. There is no evident pneumoperitoneum or bowel obstruction. Postop change noted to the right femur. IMPRESSION: Indwelling tube with bilateral nephrolithiasis.
[2021-06-22] MEDS ORDERED: LACTATED RINGERS 1,000 ML IV ONE ×2 (11:30→14:22)
[2021-06-22] MEDS: ONDANSETRON 4 MG/2 ML VIAL IVP ONE ×2 (11:48→17:06)
[2021-06-22] MEDS ORDERED: SCOPOLAMINE 1.5MG/72HR PATCH TRANSDERM ONE (11:48)
[2021-06-22 11:52] LABS: Basophils # (A) 0.1 k/uL (0-0.2); Basophils % (A) 1 %; Eosinophils # (A) 0.4 k/uL (0-0.7); Eosinophils % (A) 3 %; HCT 27.2 % (34.0-46.0); HGB 8.7 gm/dL (11.4-16.0); Hypochromasia Slight; Lymphocytes # (A) 2.9 k/uL (1.0-4.8); Lymphocytes % (A) 24 %; MCH 28.8 pg (25.0-35.0); MCV 89.7 fL (80.0-100.0); Mean Platelet Volume 6.4; Monocytes # (A) 0.4 k/uL (0-1.0); Monocytes % (A) 3 %; Neutrophils # (A) 8.1 k/uL (1.3-7.7); Neutrophils % (A) 68 %; Platelet Count 946 k/uL (150-450); Poikilocytosis Slight; RBC 3.03 m/uL (3.80-5.40); RDW 15.8 % (11.5-15.5)
[2021-06-22] MEDS ORDERED: NAFCILLIN ONE (12:41)
[2021-06-22] MEDS ORDERED: GLYCOPYRROLATE 0.2 MG/ML 2 ML VIAL ONE (12:41)
[2021-06-22] MEDS ORDERED: ROCURONIUM 10 MG/ML (5 ML VIAL) IV ONE (12:41)
[2021-06-22] MEDS ORDERED: GENTAMICIN 40 MG/ML 2 ML VIAL ONE (12:41)
[2021-06-22] MEDS ORDERED: SUCCINYLCHOLINE CHLORIDE 100 MG/5 ML SYR IV ONE (12:41)
[2021-06-22] MEDS ORDERED: MIDAZOLAM 2 MG/2 ML VIAL ONE (12:41)
[2021-06-22] MEDS ORDERED: PROPOFOL 10 MG/ML 20 ML VIAL IV ONE (12:41)
[2021-06-22] MEDS ORDERED: NEOSTIGMINE 1 MG/ML 10 ML VIAL ONE (12:41)
[2021-06-22] MEDS ORDERED: ePHEDrine SULFATE/0.9% NACL/PF 50 MG/5 ML SYRINGE IV ONE (12:41)
[2021-06-22] MEDS ORDERED: ONDANSETRON ODT 4 MG TAB PO PRN (12:48)
[2021-06-22] MEDS ORDERED: IOPAMIDOL-370 50ML BTL MISCELLANE ONE ×2 (13:22)
--- NOTE | 2021-06-22 14:59 | P.OP ---
Date of Procedure: 06/22/21 Preoperative Diagnosis: Right renal stone Postoperative Diagnosis: Same Procedure(s) Performed: Right percutaneous nephrolithotomy (greater than 2 cm) antegrade nephrostogram, and nephrostomy tube exchange Implants: 12-Surinamese nephrostomy tube in the right kidney Anesthesia: JEN Surgeon: Derrick Green Certified Addiction Counselor #1: Kishore South Estimated Blood Loss (ml): 100 Pathology: other (right renal stone) Condition: stable Disposition: PACU Indications for Procedure: This is a 45 yo female with hx of right sided partial staghorn(>2cm), she has hx of recurrent UTI and she is symptomatic from her stone. She underwent attempted PCNL on June 08, the case had to be aborted due to significant bleeding after any access. At that time a nephrostomy tube was placed and the case was aborted. discussed with her the option of doing second look PCNL, She agreed to proceed. Discussed the risk of bleeding, infection, injury to nearby organs which include injury to liver, bowel and lung. Discussed risk of anesthesia. She does have history of PCNL in the past, I reviewed her CT with her and discussed some of the stone do appear to be outside the collecting system, discussed it might not be possible to remove the stones. Discussed risk from anesthesia. Discussed with her similar bleeding is encountered in the surgery, then willl abort the surgery discussed with her also that her last in hemoglobin is 7.8, and might require blood transfusion during surgery. She understood all risks and agreed to proceed. Operative Findings: Partial staghorn calculi within the lower pole of the right kidney Multiple radiopaque calcification were visualized in the lower portion of the kidney, on antegrade pyelogram appeared to be outside the collecting system Description of Procedure: Patient was prepped and draped in sterile fashion placed in a prone position. At this time a sensor wire was advanced through the old nephrostomy tube,. On fluoroscopy, the wire did not appear to be followed the course of the ureter. At this time the wire was removed. Antegrade nephrostogram was performed which showed that the wire appeared to be in the retroperitoneum. At this time the wire was readvanced and the nephrostomy tube was removed. Next a flexible cystoscope was advanced course of the tract, renoscopy was performed which showed that the wire was advanced through the collecting system, but there appeared to be a small perforation in the collecting system and the wire was going through the collecting system and into the retroperitoneum. The cystoscope was then pulled back and the stones in the lower pole was visualized. at this time a wire was advanced through the scope. At this time was able to be advanced the wire down the ureter and into the bladder. Next the cystoscope was withdrawn with the wire in place. Next a ureteral balloon dilator was passed over the wire, the tract was dilated to 30-Surinamese using the balloon dilator. I attempted to advance the sheath over the balloon but resistance was met at the capsule. At this time a hemostat was advanced along the course of the balloon, and the scar tissue was dilated. At this time I was able to advance the 30-Surinamese sheath into the collecting system. Next the rigid nephroscope was advanced through the sheath, using the ultrasound cyber wand, the stone was fragmented , sizable fragments were removed, repeat renoscopy showed no additional stones. at this time a flexible cystoscope was advanced and renoscopy was performed showed 2 additional stones within the lower pole that were removed using the stone basket. Repeat renoscopy showed no additional stones in the collecting system, on fluoroscopy Multiple radiopaque calcification were visualized in the lower portion of the kidney, on antegrade p yelogram appeared to be outside the collecting system. At this time the flexible cystoscope was advanced to the UPJ, and advanced down into the mid ureter showed no additional stones or injury to the ureter, antegrade nephrostogram was performed showed no filling defect along the course of the ureter. Pullback ureteroscopy showed no injury to ureter. At this time a wire was advanced through the cystoscope down the ureter. Next a 12-Surinamese nephrostomy tube was passed over the wire, antegrade nephrostogram was performed which confirmed the location of the nephrostomy tube. The tube was secured to the patient skin using 2-0 silk. At this time the patient was placed in supine position awakened from anesthesia in stable condition
--- NOTE | 2021-06-22 16:03 | FL ---
EXAMINATION TYPE: FL fluoroscopy <1hr DATE OF EXAM: 06/22/2021 COMPARISON: NONE HISTORY: Right renal calculi Fluoroscopy support supplied to the referring clinician. See dictated report from urology, 2 minutes 35 seconds fluoroscopy time supplied to the referring clinician
[2021-06-22] MEDS: HEPARIN SODIUM,PORCINE/PF 5,000 UNIT/0.5 ML SYRINGE SQ SCH (17:20)
[2021-06-22] MEDS: GABAPENTIN 300 MG CAP PO SCH ×2 (17:21→22:51)
[2021-06-22] MEDS: KETOROLAC 15 MG/ML 1 ML VIAL IVP SCH (17:21)
[2021-06-22] MEDS ORDERED: amLODIPine 2.5 MG TAB PO SCH (21:00)
[2021-06-22] MEDS ORDERED: CITALOPRAM HYDROBROMIDE 20 MG TAB PO SCH (21:00)
[2021-06-22] MEDS: FERROUS SULFATE 325 MG TAB PO SCH (22:51)
[2021-06-23] MEDS: HEPARIN SODIUM,PORCINE/PF 5,000 UNIT/0.5 ML SYRINGE SQ SCH ×3 (01:45→16:09)
[2021-06-23] MEDS: KETOROLAC 15 MG/ML 1 ML VIAL IVP SCH ×3 (01:45→12:53)
[2021-06-23] MEDS: LACTATED RINGERS 1,000 ML IV SCH ×2 (07:22→12:55)
[2021-06-23] MEDS ORDERED: PANTOPRAZOLE 40 MG TABLET PO SCH (07:30)
[2021-06-23] MEDS ORDERED: CYANOCOBALAMIN 500 MCG TAB PO SCH (09:00)
[2021-06-23] MEDS ORDERED: NON FORMULARY DRUG (Methadone Hcl [Methadone Intensol] 10 MG/ML Ml) PO SCH (09:00)
[2021-06-23] MEDS ORDERED: FOLIC ACID 1 MG TAB PO SCH (09:00)
[2021-06-23] MEDS: FERROUS SULFATE 325 MG TAB PO SCH (09:43)
[2021-06-23] MEDS: GABAPENTIN 300 MG CAP PO SCH ×2 (09:44→16:08)
[2021-06-23] MEDS ORDERED: METHADONE 5 MG TAB PO SCH (10:00)
[2021-06-23] MEDS ORDERED: METHADONE 10 MG TAB PO SCH (10:00)
[2021-06-23 11:27] LABS: HCT 24.6 % (34.0-46.0); HGB 7.6 gm/dL (11.4-16.0); Hypochromasia Moderate; MCH 28.5 pg (25.0-35.0); MCHC 30.8 g/dL (31.0-37.0); MCV 92.7 fL (80.0-100.0); Mean Platelet Volume 6.9; Platelet Count 776 k/uL (150-450); Poikilocytosis Slight; RBC 2.66 m/uL (3.80-5.40); RDW 15.5 % (11.5-15.5)
[2021-06-23 11:38] LABS: African American GFR (CKD) 89 (>60 ml/min/1.73 sqM); Anion Gap 6 mmol/L; Blood Urea Nitrogen 11 mg/dL (7-17); Calcium 8.9 mg/dL (8.4-10.2); Carbon Dioxide 30 mmol/L (22-30); Chloride 104 mmol/L (98-107); Glucose 117 mg/dL (74-99); Non-African American GFR(CKD) 77 (>60 ml/min/1.73 sqM); Potassium 3.6 mmol/L (3.5-5.1); Sodium 140 mmol/L (137-145)
--- NOTE | 2021-06-23 12:02 | P.DS ---
Providers Attending physician: Derrick Green MD Primary care physician: Stated None Hospital Course: This is a 45 yo female with hx of right sided partial staghorn, she underwent right sided PCNL on 06/22/21. Please see op note dated 06/22 for surgery details. She was admitted to the hospital post operatively. She did well in post operative period. [place] was removed on POD #1. She was discharged home on POD #1 with the nephrostomy tube. At time of discharge she was tolerating diet, ambul ating and pain was controlled Plan - Discharge Summary Discharge Rx Participant: No New Discharge Prescriptions: New Cephalexin [Keflex] 500 mg PO Q8HR #15 cap Gabapentin [Neurontin] 100 mg PO TID 3 Days #9 cap Ketorolac [Toradol] 10 mg PO Q6HR PRN #15 tab PRN Reason: Pain No Action Aspirin [Children's Aspirin] 81 mg PO DAILY Citalopram Hydrobromide [CeleXA] 20 mg PO HS Folic Acid 1 mg PO DAILY #30 tab Ferrous Sulfate [Iron (65 MG Elemental)] 325 mg PO BID #60 tab Pantoprazole [Protonix] 40 mg PO AC-BRKFST #30 tab Gabapentin 600 mg PO TID amLODIPine BESYLATE [Norvasc] 2.5 mg PO HS Lurasidone [Latuda] 40 mg PO HS Ondansetron [Zofran ODT] 4 mg PO Q8H PRN PRN Reason: Nausea Methadone HCl [Methadone Intensol] 115 mg PO DAILY Cholecalciferol [Vitamin D3 (25 Mcg = 1000 Iu)] 50 mcg PO DAILY Cyanocobalamin [Vitamin B-12] 1,000 mcg PO DAILY #60 tab Cephalexin [Keflex] 500 mg PO Q12HR Discharge Medication List Aspirin [Children's Aspirin] 81 mg PO DAILY 05/07/18 [History] Citalopram Hydrobromide [CeleXA] 20 mg PO HS 03/22/21 [History] Lurasidone [Latuda] 40 mg PO HS 03/22/21 [History] amLODIPine BESYLATE [Norvasc] 2.5 mg PO HS 03/22/21 [History] Cholecalciferol [Vitamin D3 (25 Mcg = 1000 Iu)] 50 mcg PO DAILY 06/15/21 [History] Methadone HCl [Methadone Intensol] 115 mg PO DAILY 06/15/21 [History] Ondansetron [Zofran ODT] 4 mg PO Q8H PRN 06/15/21 [History] Cyanocobalamin [Vitamin B-12] 1,000 mcg PO DAILY #60 tab 06/19/21 [Rx] Ferrous Sulfate [Iron (65 MG Elemental)] 325 mg PO BID #60 tab 06/19/21 [Rx] Folic Acid 1 mg PO DAILY #30 tab 06/19/21 [Rx] Pantoprazole [Protonix] 40 mg PO AC-BRKFST #30 tab 06/19/21 [Rx] Cephalexin [Keflex] 500 mg PO Q12HR 06/20/21 [History] Gabapentin 600 mg PO TID 06/20/21 [History] Cephalexin [Keflex] 500 mg PO Q8HR #15 cap 06/23/21 [Rx] Gabapentin [Neurontin] 100 mg PO TID 3 Days #9 cap 06/23/21 [Rx] Ketorolac [Toradol] 10 mg PO Q6HR PRN #15 tab 06/23/21 [Rx] Activity/Diet/Wound Care/Special Instructions: Increase fluid intake It's normal to see blood in the urine You may shower, but no baths You can change the dressing around the tube if gets saturated
[2021-06-23 13:41] VITALS: BP 161/89; PULSE 87; RESP 16; TEMP 98.3
== END 2021-06-23 16:25 | disposition home or self-care (01) ==
LOC: OR 10:40 → 4SSUR 14:42 → OR 06-23 16:25
PROVIDERS: ATTEND Urology
DX: N20.0 Calculus of kidney (principal); I10 Essential (primary) hypertension; Z86.19 Personal history of other infectious and parasitic diseases; Z79.82 Long term (current) use of aspirin; Z88.5 Allergy status to narcotic agent; Z87.440 Personal history of urinary (tract) infections
CPT/HCPCS: 50081; 81025; 86900; 86901; 80048; 85025; 85027; 86850; 82365; 76000; 74018; C1769; C1729; J2250; J1580; J1100; J2710; J0690 ×2; J2405; S0109 ×2; J1885 ×2; J0330; J2704; Q9967; J1644 ×2

== ENCOUNTER → 2021-07-19 | Outpatient (CLI) | payer OTHER ==
--- NOTE | 2021-07-19 14:44 | XR ---
KUB HISTORY: An 20.0 Frontal KUB submitted on 2 images and correlated to prior exam 06/22/2021 Postoperative changes again noted to the right hip. The previously identified [place] tube with urete ral extension has been exchanged for a nephrostomy tube. Calcifications are seen overlying the kidney s similar to prior exam. There overlying bowel gas obscures detail. Retained fecal debris present wit hin the colon. Phlebolith noted within the pelvis. IMPRESSION: Bilateral nephrolithiasis, indwelling nephrostomy tube has been exchanged
== END | disposition home or self-care (01) ==
LOC: RADXRMAIN 11:32
PROVIDERS: ATTEND Urology
DX: N20.0 Calculus of kidney (principal)
CPT/HCPCS: 74018

== ENCOUNTER 2021-08-09 14:35 | Emergency (ER) | payer OTHER ==
[2021-08-09 14:41] VITALS: TEMP 98.2
[2021-08-09] MEDS ORDERED: SODIUM CHLORIDE 0.9% 1,000 ML IV ONE (15:57)
--- NOTE | 2021-08-09 16:15 | XR ---
EXAMINATION TYPE: XR chest 1V portable DATE OF EXAM: 08/09/2021 COMPARISON: NONE HISTORY: Altered mental status and weakness. TECHNIQUE: Single AP portable frontal upright view of the chest is obtained. FINDINGS: There are chronic parenchymal changes bilaterally without suspicious focal air space opaci ty, pleural effusion, or pneumothorax seen. The cardiac silhouette size is within normal limits. T he osseous structures are intact. Overlying bra strap. IMPRESSION: No acute process.
[2021-08-09 16:40] LABS: Basophils # (A) 0.1 k/uL (0-0.2); Basophils % (A) 1 %; Eosinophils # (A) 0.4 k/uL (0-0.7); Eosinophils % (A) 4 %; HCT 31.8 % (34.0-46.0); HGB 10.1 gm/dL (11.4-16.0); Hypochromasia Slight; Lymphocytes % (A) 32 %; MCH 28.7 pg (25.0-35.0); MCHC 31.6 g/dL (31.0-37.0); MCV 90.7 fL (80.0-100.0); Mean Platelet Volume 6.5; Monocytes # (A) 0.3 k/uL (0-1.0); Monocytes % (A) 4 %; Neutrophils # (A) 5.5 k/uL (1.3-7.7); Neutrophils % (A) 58 %; Platelet Count 499 k/uL (150-450); RBC 3.51 m/uL (3.80-5.40); RDW 15.2 % (11.5-15.5); WBC 9.5 k/uL (3.8-10.6)
[2021-08-09 16:48] LABS: INR 0.9 (<1.2); Partial Thromboplastin Time 22.3 sec (22.0-30.0); Prothrombin Time 9.5 sec (9.0-12.0)
[2021-08-09 16:50] LABS: HCG,Qualitative Serum Not Detected
[2021-08-09 16:52] LABS: ALT 12 U/L (4-34); AST 22 U/L (14-36); African American GFR (CKD) 77 (>60 ml/min/1.73 sqM); Albumin 3.7 g/dL (3.5-5.0); Alcohol <10 mg/dL; Alkaline Phosphatase 138 U/L (38-126); Anion Gap 6 mmol/L; Blood Urea Nitrogen 24 mg/dL (7-17); Calcium 9.1 mg/dL (8.4-10.2); Carbon Dioxide 28 mmol/L (22-30); Chloride 105 mmol/L (98-107); Glucose 105 mg/dL (74-99); Non-African American GFR(CKD) 67 (>60 ml/min/1.73 sqM); Potassium 4.2 mmol/L (3.5-5.1); Sodium 139 mmol/L (137-145); Total Bilirubin 0.1 mg/dL (0.2-1.3); Total Protein 6.8 g/dL (6.3-8.2)
[2021-08-09 17:39] LABS: Appearance,Urine Clear (Clear); Bacteria,Urine Moderate /hpf; Bilirubin,Urine Negative (Negative); Blood,Urine Negative (Negative); Color,Urine Light Yellow; Glucose,Urine (UA) Negative (Negative); Ketones,Urine Negative (Negative); Leukocyte Esterase,Urine Moderate (Negative); Mucus,Urine Rare /hpf; Nitrite,Urine Positive (Negative); PH, Urine 6.5 (5.0-8.0); Protein,Urine Negative (Negative); RBC,Urine 1 /hpf (0-5); Specific Gravity,Urine 1.013 (1.001-1.035); Urobilinogen,Urine <2.0 mg/dL (<2.0); WBC,Urine 7 /hpf (0-5)
[2021-08-09 17:45] LABS: Amphetamine Screen,Urine Not Detected (NotDetected); Barbiturate Screen,Urine Not Detected (NotDetected); Benzodiazepines Screen,Urine Detected (NotDetected); Cocaine Screen,Urine Not Detected (NotDetected); Methadone Screen, Urine Detected (NotDetected); Opiate Screen,Urine Not Detected (NotDetected); Phencyclidine Screen,Urine Not Detected (NotDetected); Tricyclic Antidepressant,Urine Not Detected (NotDetected); Urn Cannabinoid Scrn Detected (NotDetected)
[2021-08-09 17:46] LABS: Oxycodone Screen, Urine Not Detected (NotDetected)
--- NOTE | 2021-08-09 17:46 | CT ---
EXAMINATION: CT brain wo con DATE AND TIME: 08/09/2021 5:24 PM CLINICAL INDICATION: PHH; Altered mental status TECHNIQUE: Standard departmental protocol.; 1099.4 mGy-cm COMPARISON: None FINDINGS: The calvarium is negative for acute findings. Right frontal craniotomy change noted. There is no intracranial hemorrhage. There is no intracranial mass or mass effect. No definite new intra-axial or extra-axial attenuation defect. The paranasal sinuses, middle ear cavities, and mastoid sinus air cells are clear. The orbits are unremarkable. IMPRESSION: No acute CT process.
[2021-08-09 17:49] VITALS: RESP 18
[2021-08-09] MEDS ORDERED: cefTRIAXone IN SWFI 1,000 MG/10 ML SYRINGE IVP STA (17:55)
[2021-08-09] MEDS ORDERED: NALOXONE 0.4 MG/ML 1 ML VIAL IV PRN (18:29)
[2021-08-09] MEDS ORDERED: IBUPROFEN 400 MG TAB PO PRN (18:29)
[2021-08-09] MEDS ORDERED: SODIUM CHLORIDE 0.9% 1,000 ML IV SCH (18:30)
--- NOTE | 2021-08-09 19:01 | ED ---
General Adult HPI - General Chief complaint: Altered Mental Status Stated complaint: AMS Time Seen by Provider: 08/09/21 15:11 Source: patient, EMS Mode of arrival: EMS - History of Present Illness Initial comments: Patient is a 45-year-old female who was brought to the emergency department for evaluation due to altered mental status. Patient was found at home eating a tub of butter. She is acting strangely per family who called EMS to have her brought in for evaluation. She was sleepy. Patient is on methadone chronically and does have a history of marijuana use. They do not know of any other drug use. Upon arrival, patient is easily arousable to voice and gentle stimulation, however she is sleepy and unwilling to produce. In any extensive conversation. She states she has no complaints at this time. Denies any drug use. Dementia falls back asleep. It is difficult to obtain a history from her. I suspect polypharmacy. - Related Data Home Medications Medication Instructions Recorded Confirmed Aspirin [Children's Aspirin] 81 mg PO DAILY 05/07/18 08/09/21 Citalopram Hydrobromide [CeleXA] 20 mg PO HS 03/22/21 08/09/21 Lurasidone [Latuda] 40 mg PO HS 03/22/21 08/09/21 amLODIPine BESYLATE [Norvasc] 2.5 mg PO HS 03/22/21 08/09/21 Cholecalciferol [Vitamin D3 (25 50 mcg PO DAILY 06/15/21 08/09/21 Mcg = 1000 Iu)] Methadone HCl [Methadone Intensol] 1 dose PO DIRECTED 06/15/21 08/09/21 Previous Rx's Medication Instructions Recorded Cyanocobalamin [Vitamin B-12] 1,000 mcg PO DAILY #60 tab 06/19/21 Ferrous Sulfate [Iron (65 MG 325 mg PO BID #60 tab 06/19/21 Elemental)] Folic Acid 1 mg PO DAILY #30 tab 06/19/21 Sulfamethoxazole/Trimethoprim 1 each PO BID 5 Days #10 tablet 08/09/21 [Bactrim DS 800-160 mg] Allergies Allergy/AdvReac Type Severity Reaction Status Date / Time acetaminophen [From Tylenol] AdvReac Unknown Verified 08/09/21 16:32 codeine AdvReac Nausea & Verified 08/09/21 16:32 Vomiting Review of Systems ROS Statement: Those systems with pertinent positive or pertinent negative responses have been documented in the HPI. Difficult to obtain secondary to patient's current clinical status. ROS Other: All systems not noted in ROS Statement are negative. Past Medical History Past Medical History: Hypertension, Renal Disease Additional Past Medical History / Comment(s): History of opioid addiction. She was addicted to Vicodin for 10 years but has been on Suboxone since 2009. She was recently started on methadone when she was admitted to [facility]. History of Any Multi-Drug Resistant Organisms: None Reported Date of last positivie culture/infection: December 2020 MDRO Source:: intestine Past Surgical History: Back Surgery, Orthopedic Surgery Additional Past Surgical History / Comment(s): Lithotripsy, back surgery, c raniotomy due to brain swelling Past Anesthesia/Blood Transfusion Reactions: No Reported Reaction Past Psychological History: Anxiety, Bipolar, Depression Smoking Status: Current every day smoker Past Alcohol Use History: None Reported Past Drug Use History: Marijuana, Opiates - Past Family History Father Family Medical History: Deep Vein Thrombosis (DVT) Additional Family Medical History / Comment(s): Heart surgery. Mother History Unknown: Yes General Exam - General Exam Comments Initial Comments: General: Patient is sleepy. Otherwise in no acute distress. HEAD: Normal with no signs of head trauma. EYES: PERRLA, EOMI, conjunctiva normal, no discharge. Pupils are 3 mm and equal bilaterally. ENT: Hearing grossly intact, normal oropharynx. Moist mucous members. RESPIRATORY: Clear breath sounds bilaterally. No wheezes, rales, or rhonchi. C/V: Regular rate and rhythm. S1 and S2 auscultated, no edema, peripheral pulses 2+ and intact throughout ABD: Abd is soft, nontender, nondistended EXT: Normal range of motion, no obvious deformity SKIN: No rashes or lesions observed on exposed skin. NEURO: Alert but not oriented. Oriented times one to 2. Able to move all 4 x- rays. No focal deficits. Course Vital Signs 08/09/21 08/09/21 08/09/21 14:36 17:48 19:21 Temperature 98.2 F Pulse Rate 74 61 72 Respiratory 14 18 18 Rate Blood Pressure 114/64 149/89 149/84 O2 Sat by Pulse 95 97 98 Oximetry Medical Decision Making - Medical Decision Making Based on the patient's presentation and physical exam, I'm concerned for altered mental status of unknown etiology for the patient. I am strongly suspecting polypharmacy, however we will obtain a broad altered mental status workup including cardiac workup and CT head. We will provide her with a 1 L fluid bolus while she is in the department. Urine studies will also be obtained. She'll be connected to continuous cardiac monitoring while she is here in the department. Patient's EKG shows no signs of acute ischemia. CT head so showed no acute intracranial process. Chest x-ray revealed no acute cardiopulmonary process. Laboratory studies are remarkable for a normocytic anemia with a hemoglobin of 10.1, which appears to be somewhat chronic but improved from prior levels. Troponin is negative. She is not . Urinalysis is concerning for UTI with positive nitrites and leuk esterase. UDS is positive for methadone, benzos, marijuana. She is not prescribed benzos. Covid is negative. On reevaluation, patient still sleepy. I saw I suspect that this is secondary to improper benzodiazepine use. Due to the patient not awakening, I would like to admit her to observation until she is back to baseline to be discharged home. Family members were made aware by nursing staff. I spoke with the admitting team, DENNYS Faye who accepted the patient and was in agreement this plan. Patient was admitted to observation telemetry. Patient awaited admission in the emergency department, she awoke. She is back to baseline. She was alert and oriented 4 at this time. She was able to tell me that she took 2 Xanax that were not hers. Remainder sleepy, and this is what happened earlier today. She is no acute complaint at this time. She does expre ss regret taking the Xanax, but would like to go home. She is alert and oriented at this time. No focal neurological deficits. Neurological exam is normal. She does have capacity to leave. I would like family members to come pick her up, and she was in agreement this plan. I believe she can be discharged home with family. She was in agreement this plan. She'll be discharged home with an buttocks for UTI. I notified the admitting team that I would like to discharge the patient home and they were in agreement with this plan. I will provide the patient with a prescription for Bactrim DS twice a day for 5 days. I instructed the patient to follow up with their PCP in the next 3 days. . I explained that the patient should return to the emergency department if they experience any worsening symptoms. Strict return precautions were discussed with the patient. The patient expressed understanding of these instructions. I answered all questions that the patient had. The patient was discharged home in fair condition with their prescriptions and follow up information. - Lab Data Result diagrams: 08/09/21 16:26 08/09/21 16:26 Lab Results 08/09/21 08/09/21 08/09/21 Range/Units 16:26 16:26 16:26 WBC 9.5 (3.8-10.6) k/uL RBC 3.51 L (3.80-5.40) m/uL Hgb 10.1 L (11.4-16.0) gm/dL Hct 31.8 L (34.0-46.0) % MCV 90.7 (80.0-100.0) fL MCH 28.7 (25.0-35.0) pg MCHC 31.6 (31.0-37.0) g/dL RDW 15.2 (11.5-15.5) % Plt Count 499 H (150-450) k/uL MPV 6.5 Neutrophils % 58 % Lymphocytes % 32 % Monocytes % 4 % Eosinophils % 4 % Basophils % 1 % Neutrophils # 5.5 (1.3-7.7) k/uL Lymphocytes # 3.0 (1.0-4.8) k/uL Monocytes # 0.3 (0-1.0) k/uL Eosinophils # 0.4 (0-0.7) k/uL Basophils # 0.1 (0-0.2) k/uL Hypochromasia Slight PT 9.5 (9.0-12.0) sec INR 0.9 (<1.2) APTT 22.3 (22.0-30.0) sec Sodium (137-145) mmol/L Potassium (3.5-5.1) mmol/L Chloride (98-107) mmol/L Carbon Dioxide (22-30) mmol/L Anion Gap mmol/L BUN (7-17) mg/dL Creatinine (0.52-1.04) mg/dL Est GFR (CKD-EPI)AfAm (>60 ml/min/1.73 sqM) Est GFR (CKD-EPI)NonAf (>60 ml/min/1.73 sqM) Glucose (74-99) mg/dL Plasma Lactic Acid Gustavo (0.7-2.0) mmol/L Calcium (8.4-10.2) mg/dL Total Bilirubin (0.2-1.3) mg/dL AST (14-36) U/L ALT (4-34) U/L Alkaline Phosphatase (38-126) U/L Ammonia (<30) umol/L Troponin I (0.000-0.034) ng/mL Total Protein (6.3-8.2) g/dL Albumin (3.5-5.0) g/dL HCG, Qual Urine Color Light Yellow Urine Appearance Clear (Clear) Urine pH 6.5 (5.0-8.0) Ur Specific Bartow 1.013 (1.001-1.035) Urine Protein Negative (Negative) Urine Glucose (UA) Negative (Negative) Urine Ketones Negative (Negative) Urine Blood Negative (Negative) Urine Nitrite Positive H (Negative) Urine Bilirubin Negative (Negative) Urine Urobilinogen <2.0 (<2.0) mg/dL Ur Leukocyte Esterase Moderate H (Negative) Urine RBC 1 (0-5) /hpf Urine WBC 7 H (0-5) /hpf Urine Bacteria Moderate H (None) /hpf Urine Mucus Rare H (None) /hpf Urine Opiates Screen Not Detected (NotDetected) Ur Oxycodone Screen Not Detected (NotDetected) Urine Methadone Screen Detected H (NotDetected) Ur Propoxyphene Screen Not Detected (NotDetected) Ur Barbiturates Screen Not Detected (NotDetected) U Tricyclic Antidepress Not Detected (NotDetected) Ur Phencyclidine Scrn Not Detected (NotDetected) Ur Amphetamines Screen Not Detected (NotDetected) U Methamphetamines Scrn Not Detected (NotDetected) U Benzodiazepines Scrn Detected H (NotDetected) Urine Cocaine Screen Not Detected (NotDetected) U Marijuana (THC) Screen Detected H (NotDetected) Serum Alcohol mg/dL 08/09/21 08/09/21 08/09/21 Range/Units 16:26 16:26 16:26 WBC (3.8-10.6) k/uL RBC (3.80-5.40) m/uL Hgb (11.4-16.0) gm/dL Hct (34.0-46.0) % MCV (80.0-100.0) fL MCH (25.0-35.0) pg MCHC (31.0-37.0) g/dL RDW (11.5-15.5) % Plt Count (150-450) k/uL MPV Neutrophils % % Lymphocytes % % Monocytes % % Eosinophils % % Basophils % % Neutrophils # (1.3-7.7) k/uL Lymphocytes # (1.0-4.8) k/uL Monocytes # (0-1.0) k/uL Eosinophils # (0-0.7) k/uL Basophils # (0-0.2) k/uL Hypochromasia PT (9.0-12.0) sec INR (<1.2) APTT (22.0-30.0) sec Sodium 139 (137-145) mmol/L Potassium 4.2 (3.5-5.1) mmol/L Chloride 105 (98-107) mmol/L Carbon Dioxide 28 (22-30) mmol/L Anion Gap 6 mmol/L BUN 24 H (7-17) mg/dL Creatinine 1.02 (0.52-1.04) mg/dL Est GFR (CKD-EPI)AfAm 77 (>60 ml/min/1.73 sqM) Est GFR (CKD-EPI)NonAf 67 (>60 ml/min/1.73 sqM) Glucose 105 H (74-99) mg/dL Plasma Lactic Acid Gustavo 1.0 (0.7-2.0) mmol/L Calcium 9.1 (8.4-10.2) mg/dL Total Bilirubin 0.1 L (0.2-1.3) mg/dL AST 22 (14-36) U/L ALT 12 (4-34) U/L Alkaline Phosphatase 138 H (38-126) U/L Ammonia 12 (<30) umol/L Troponin I <0.012 (0.000-0.034) ng/mL Total Protein 6.8 (6.3-8.2) g/dL Albumin 3.7 (3.5-5.0) g/dL HCG, Qual Not Detected Urine Color Urine Appearance (Clear) Urine pH (5.0-8.0) Ur Specific Bart[place] (1.001-1.035) Urine Protein (Negative) Urine Glucose (UA) (Negative) Urine Ketones (Negative) Urine Blood (Negative) Urine Nitrite (Negative) Urine Bilirubin (Negative) Urine Urobilinogen (<2.0) mg/dL Ur Leukocyte Esterase (Negative) Urine RBC (0-5) /hpf Urine WBC (0-5) /hpf Urine Bacteria (None) /hpf Urine Mucus (None) /hpf Urine Opiates Screen (NotDetected) Ur Oxycodone Screen (NotDetected) Urine Methadone Screen (NotDetected) Ur Propoxyphene Screen (NotDetected) Ur Barbiturates Screen (NotDetected) U Tricyclic Antidepress (NotDetected) Ur Phencyclidine Scrn (NotDetected) Ur Amphetamines Screen (NotDetected) U Methamphetamines Scrn (NotDetected) U Benzodiazepines Scrn (NotDetected) Urine Cocaine Screen (NotDetected) U Marijuana (THC) Screen (NotDetected) Serum Alcohol <10 mg/dL - EKG Data -: EKG Interpreted by Me EKG Comments: 12-lead Electrocardiogram Interpretation Note EKG was reviewed and interpreted by myself. 12-lead ECG performed at 1635 is interpreted by me as revealing sinus bradycardia at a rate of 58 beats per minute. [place] is normal. [place] interval is 180 ms, QRS duration is 86 ms, QTc is 494 ms. There were no [address] or T wave abnormalities to suggest myocardial ischemia or injury. R wave progression across the precordium was satisfactory. By my interpretation this EKG is non-diagnostic for acute ischemia. Disposition Clinical Impression: Altered mental status, Polypharmacy, UTI (urinary tract infection) Disposition: HOME SELF-CARE Condition: Fair Is patient prescribed a controlled substance at d/c from ED?: No
[2021-08-09 19:21] VITALS: BP 149/84; PULSE 72
== END 2021-08-09 19:40 | disposition home or self-care (01) ==
LOC: EC 14:35 → 6NMEDSUR 18:29 → UNDOADMOB 18:29 → 6NMEDSUR 19:10 → UNDODISOB 21:27
DX: R41.82 Altered mental status, unspecified (principal); N39.0 Urinary tract infection, site not specified; I12.9 Hypertensive chronic kidney disease with stage 1 through stage 4 chronic kidney disease, or unspecified chronic kidney disease; N18.9 Chronic kidney disease, unspecified; F41.9 Anxiety disorder, unspecified; F31.9 Bipolar disorder, unspecified; F17.200 Nicotine dependence, unspecified, uncomplicated; F12.90 Cannabis use, unspecified, uncomplicated; Z79.82 Long term (current) use of aspirin; Z88.5 Allergy status to narcotic agent; Z20.822 Contact with and (suspected) exposure to COVID-19
CPT/HCPCS: 99285; 96374; 96361; 36415; 93005; 80053; 82140; 83605; 84484; 85025; 85610; 85730; 81001; 84703; 80306; 87635; 71045; 70450; G0480; J0696; 80320

== ENCOUNTER 2024-01-05 10:55 | Inpatient (IN) | payer OTHER ==
--- NOTE | 2024-01-05 11:12 | ED ---
General Adult HPI - General Chief complaint: Altered Mental Status Stated complaint: Abn Labs Time Seen by Provider: 01/05/24 11:05 Source: patient, RN notes reviewed, old records reviewed Mode of arrival: wheelchair Limitations: no limitations - History of Present Illness Initial comments: This is a 48-year-old female who presents to the emergency department because she is very lethargic and mother states that started yesterday but today she got her normal dose of methadone and she became much more lethargic and falling asleep in midsentence. Mom states she does look like she may have overdosed but the patient herself denies that the patient has no complaints but she falls asleep in mid conversation. Mom states she has not had any known fever to her however in triage she did have a fever. Patient denies chest pain difficulty breathing or abdominal pain. - Related Data Home Medications Medication Instructions Recorded Confirmed Methadone HCl [Methadone Intensol] 125 mg PO DAILY 06/15/21 01/05/24 Cariprazine HCl [Vraylar] 3 mg PO HS 01/05/24 01/05/24 Citalopram Hydrobromide [CeleXA] 20 mg PO HS 01/05/24 01/05/24 Famotidine 40 mg PO DAILY PRN 01/05/24 01/05/24 Gabapentin 800 mg PO TID 01/05/24 01/05/24 Ibuprofen [Motrin] 600 mg PO TID PRN 01/05/24 01/05/24 Lisinopril-Hctz 10-12.5 mg 1 tab PO DAILY 01/05/24 01/05/24 [Zestoretic 10-12.5] hydrOXYzine pamoate [Vistaril] 50 mg PO BID PRN 01/05/24 01/05/24 traZODone HCL [Desyrel] 100 mg PO BID 01/05/24 01/05/24 Allergies Allergy/AdvReac Type Severity Reaction Status Date / Time acetaminophen [From Tylenol] AdvReac Nausea & Verified 01/05/24 12:56 Vomiting/"Liver shut down" codeine AdvReac Nausea & Verified 01/05/24 12:56 Vomiting/"Liver shut down" metformin AdvReac Nausea & Verified 01/05/24 12:56 Vomiting & Diarrhea Review of Systems ROS Statement: Those systems with pertinent positive or pertinent negative responses have been documented in the HPI. ROS Other: All systems not noted in ROS Statement are negative. Past Medical History Past Medical History: Hypertension, Renal Disease Additional Past Medical History / Comment(s): History of opioid addiction. She was addicted to Vicodin for 10 years but has been on Suboxone since 2009. She was recently started on methadone when she was admitted to [facility]. History of Any Multi-Drug Resistant Organisms: None Reported Date of last positivie culture/infection: December 2020 MDRO Source:: intestine Past Surgical History: Back Surgery, Orthopedic Surgery Additional Past Surgical History / Comment(s): Lithotripsy, back surgery, craniotomy due to brain swelling Past Anesthesia/Blood Transfusion Reactions: No Reported Reaction Past Psychological History: Anxiety, Bipolar, Depression Smoking Status: Current some day smoker Past Alcohol Use History: None Reported Past Drug Use History: Marijuana, Opiates - Past Family History Father Family Medical History: Deep Vein Thrombosis (DVT) Additional Family Medical History / Comment(s): Heart surgery. Mother History Unknown: Yes Family Medical History: Renal Disease General Exam - General Exam Comments Initial Comments: GENERAL: Patient is well-developed and well-nourished. Patient is nontoxic and well- hydrated and is in extremely lethargic and will fall asleep midsentence ENT: Neck is soft and supple. No significant lymphadenopathy is noted. Oropharynx is clear. Moist mucous membranes. Neck has full range of motion without eliciting any pain. EYES: The sclera were anicteric and conjunctiva were pink and moist. Extraocular movements were intact and pupils were equal round and reactive to light. Eyelids were unremarkable. Pupils are 2 mm. PULMONARY: Unlabored respirations. Good breath sounds bilaterally. No audible rales rhonchi or wheezing was noted. CARDIOVASCULAR: There is a regular rate and rhythm without any murmurs gallops or rubs. ABDOMEN: Soft and nontender with normal bowel sounds. SKIN: Skin is clear with no lesions or rashes and otherwise unremarkable. NEUROLOGIC: Patient is alert and oriented difficult to assess because patient falls asleep before she finishes answering questions. Cranial nerves II through XII are grossly intact. Motor and sensory are also intact. Normal speech, volume and content. MUSCULOSKELETAL: Normal extremities with adequate strength and full range of motion. LYMPHATICS: No significant lymphadenopathy is noted PSYCHIATRIC: Unable to assess secondary to the fact the patient is altered Limitations: no limitations Course Vital Signs 01/05/24 01/05/24 01/05/24 11:01 11:12 11:20 Temperature 101.2 F H Pulse Rate 83 74 Respiratory 18 16 Rate Blood Pressure 83/53 91/62 O2 Sat by Pulse 94 L 88 L 98 Oximetry 01/05/24 01/05/24 11:21 12:35 Temperature 98.6 F Pulse Rate 73 Respiratory 16 18 Rate Blood Pressure 137/50 O2 Sat by Pulse 94 L Oximetry Medical Decision Making - Medical Decision Making EKG is interpreted by myself but EKG shows a sinus rhythm at 72 bpm parables 162 QRS 97 QT interval 395 QTc is 419. EKG shows no ST segment elevation or depression. Was pt. sent in by a medical professional or institution (, PA, SENIOR RECRUITMENT CONSULTANT, urgent care, hospital, or long-term...) When possible be specific @ -No Did you speak to anyone other than the patient for history (EMS, parent, family, police, friend...)? What history was obtained from this source @ -Mother gives us all of the history Did you review nursing and triage notes (agree or disagree)? Why? @ -I reviewed and agree with nursing and triage notes Were old charts reviewed (outside hosp., previous admission, EMS record, old EKG, old radiological studies, urgent care reports/EKG's, long-term records)? Report findings @ -I reviewed prior charts and prior lab work on this patient and prior radiological studies Differential Diagnosis (chest pain, altered mental status, abdominal pain women, abdominal pain men, vaginal bleeding, weakness, fever, dyspnea, syncope, headache, dizziness, GI bleed, back pain, seizure, CVA, palpatations, mental health, musculoskeletal)? @ -Differential Altered Mental Status: Hypoglycemia, DKA, hypercapnia, ETOH, overdose, CO poisoning, trauma, myxedema coma, HTN encephalopathy, infection, encephalitis, psychosis, intercranial hemorrhage, hepatic encephalopathy, meningitis, CVA, this is not meant to be an all-inclusive list EKG interpreted by me (3pts min.). @ -As above X-rays interpreted by me (1pt min.). @ -Chest x-ray shows no acute abnormality CT interpreted by me (1pt min.). @ -None done U/S interpreted by me (1pt. min.). @ -None done What testing was considered but not performed or refused? (CT, X-rays, U/S, labs)? Why? @ -None What meds were considered but not given or refused? Why? @ -None Did you discuss the management of the patient with other professionals (professionals i.e. , PA, SENIOR RECRUITMENT CONSULTANT, lab, RT, psych nurse, social services, pit shoveler, teacher, financial administration officer, employment case manager)? Give summary @ -I spoke with sound physicians he agreed to admit the patient admit the patient wrote admitting orders Was smoking cessation discussed for >3mins.? @ -No Was critical care preformed (if so, how long)? @ -No Were there social determinants of health that impacted care today? How? (Homelessness, low income, unemployed, alcoholism, drug addiction, transportation, low edu. Level, literacy, decrease access to med. care, long-term, rehab)? @ -No Was there de-escalation of care discussed even if they declined (Discuss DNR or withdrawal of care, Hospice)? DNR status @ -No What co-morbidities impacted this encounter? (DM, HTN, Smoking, COPD, CAD, Cancer, CVA, ARF, Chemo, Hep., AIDS, mental health diagnosis, sleep apnea, morbid obesity)? @ -None Was patient admitted / discharged? Hospital course, mention meds given and route, prescriptions, significant lab abnormalities, going to OR and other pertinent info. @ -Patient was given Narcan and it did wake her up but she went back to sleep after few minutes and anytime we talked her she would wake up enough to answer questions and fall asleep longterm through a sentence so she was definitely altered compared to her baseline according to the mother. I spoke with sound physicians and he agreed to admit the patient I admitted the patient I wrote admitting orders Undiagnosed new problem with uncertain prognosis? @ -No Drug Therapy requiring intensive monitoring for toxicity (Heparin, Nitro, Insulin, Cardizem)? @ -No Were any procedures done? @ -No Diagnosis/symptom? @ -Altered mental status Acute, or Chronic, or Acute on Chronic? @ -Acute Uncomplicated (without systemic symptoms) or Complicated (systemic symptoms)? @ -Complicated Side effects of treatment? @ -No Exacerbation, Progression, or Severe Exacerbation? @ -No Poses a threat to life or bodily function? How? (Chest pain, [place], [place], pneumonia, PE, COPD, DKA, ARF, appy, cholecystitis, CVA, Diverticulitis, Homicidal, Suicidal, threat to staff... and all critical care pts) @ -Yes this could lead to hypoxia and endorgan dysfunction Diagnosis/symptom? @ -Opiate overdose Acute, or Chronic, or Acute on Chronic? @ -Acute Uncomplicated (without systemic symptoms) or Complicated (systemic symptoms)? @ -Complicated Side effects of treatment? @ -None Exacerbation, Progression, or Severe Exacerbation] @ -No Poses a threat to life or bodily function? @ -Yes this can lead to hypoxia and endorgan dysfunction Diagnosis/symptom? @ -Urinary tract infection Acute, or Chronic, or Acute on Chronic? @ -Acute Uncomplicated (without systemic symptoms) or Complicated (systemic symptoms)? @ -Complicated Side effects of treatment? @ -None Exacerbation, Progression, or Severe Exacerbation] @ -No Poses a threat to life or bodily function? @ -Yes this could lead to sepsis and endorgan dysfunction - Lab Data Result diagrams: 01/05/24 11:19 01/05/24 11:19 Lab Results 01/05/24 01/05/24 01/05/24 Range/Units 11:19 11:19 11:19 WBC 9.7 (3.8-10.6) k/uL RBC 4.05 (3.80-5.40) m/uL Hgb 12.0 (11.4-16.0) gm/dL Hct 39.3 (34.0-46.0) % MCV 96.9 (80.0-100.0) fL MCH 29.6 (25.0-35.0) pg MCHC 30.5 L (31.0-37.0) g/dL RDW 12.8 (11.5-15.5) % Plt Count 307 (150-450) k/uL MPV 7.2 Neutrophils % 77 % Lymphocytes % 16 % Monocytes % 5 % Eosinophils % 1 % Basophils % 0 % Neutrophils # 7.5 (1.3-7.7) k/uL Lymphocytes # 1.5 (1.0-4.8) k/uL Monocytes # 0.5 (0-1.0) k/uL Eosinophils # 0.1 (0-0.7) k/uL Basophils # 0.0 (0-0.2) k/uL Sodium 138 (137-145) mmol/L Potassium 5.4 H (3.5-5.1) mmol/L Chloride 106 (98-107) mmol/L Carbon Dioxide 26 (22-30) mmol/L Anion Gap 6 mmol/L BUN 23 H (7-17) mg/dL Creatinine 1.37 H (0.52-1.04) mg/dL Est GFR (CKD-EPI)AfAm 52 (>60 ml/min/1.73 sqM) Est GFR (CKD-EPI)NonAf 46 (>60 ml/min/1.73 sqM) Glucose 83 (74-99) mg/dL POC Glucose (mg/dL) (70-110) mg/dL POC Glu Fishing Vessel Mate ID Calcium 8.8 (8.4-10.2) mg/dL Total Bilirubin 0.6 (0.2-1.3) mg/dL AST 44 H (14-36) U/L ALT 16 (4-34) U/L Alkaline Phosphatase 108 (38-126) U/L Troponin I <0.012 (0.000-0.034) ng/mL Total Protein 7.3 (6.3-8.2) g/dL Albumin 4.0 (3.5-5.0) g/dL Urine Color Urine Appearance (Clear) Urine pH (5.0-8.0) Ur Specific [place] (1.001-1.035) Urine Protein (Negative) Urine Glucose (UA) (Negative) Urine Ketones (Negative) Urine Blood (Negative) Urine Nitrite (Negative) Urine Bilirubin (Negative) Urine Urobilinogen (<2.0) mg/dL Ur Leukocyte Esterase (Negative) Urine RBC (0-5) /hpf Urine WBC (0-5) /hpf Ur Squamous Epith Cells (0-4) /hpf Hyaline Casts (0-2) /lpf Urine Mucus (None) /hpf Salicylates <1.0 mg/dL Urine Opiates Screen (NotDetected) Ur Oxycodone Screen (NotDetected) Urine Methadone Screen (NotDetected) Acetaminophen <10.0 ug/mL Ur Barbiturates Screen (NotDetected) U Tricyclic Antidepress (NotDetected) Ur Phencyclidine Scrn (NotDetected) Ur Amphetamines Screen (NotDetected) U Methamphetamines Scrn (NotDetected) U Benzodiazepines Scrn (NotDetected) Urine Cocaine Screen (NotDetected) U Marijuana (THC) Screen (NotDetected) Influenza Type A (PCR) (Not Detectd) Influenza Type B (PCR) (Not Detectd) RSV (PCR) (Not Detectd) SARS-CoV-2 (PCR) (Not Detectd) 01/05/24 01/05/24 01/05/24 Range/Units 11:31 11:34 11:46 WBC (3.8-10.6) k/uL RBC (3.80-5.40) m/uL Hgb (11.4-16.0) gm/dL Hct (34.0-46.0) % MCV (80.0-100.0) fL MCH (25.0-35.0) pg MCHC (31.0-37.0) g/dL RDW (11.5-15.5) % Plt Count (150-450) k/uL MPV Neutrophils % % Lymphocytes % % Monocytes % % Eosinophils % % Basophils % % Neutrophils # (1.3-7.7) k/uL Lymphocytes # (1.0-4.8) k/uL Monocytes # (0-1.0) k/uL Eosinophils # (0-0.7) k/uL Basophils # (0-0.2) k/uL Sodium (137-145) mmol/L Potassium (3.5-5.1) mmol/L Chloride (98-107) mmol/L Carbon Dioxide (22-30) mmol/L Anion Gap mmol/L BUN (7-17) mg/dL Creatinine (0.52-1.04) mg/dL Est GFR (CKD-EPI)AfAm (>60 ml/min/1.73 sqM) Est GFR (CKD-EPI)NonAf (>60 ml/min/1.73 sqM) Glucose (74-99) mg/dL POC Glucose (mg/dL) 77 (70-110) mg/dL POC Glu Fishing Vessel Mate ID Marycarmen Gardner Calcium (8.4-10.2) mg/dL Total Bilirubin (0.2-1.3) mg/dL AST (14-36) U/L ALT (4-34) U/L Alkaline Phosphatase (38-126) U/L Troponin I (0.000-0.034) ng/mL Total Protein (6.3-8.2) g/dL Albumin (3.5-5.0) g/dL Urine Color Urine Appearance (Clear) Urine pH (5.0-8.0) Ur Specific [place] (1.001-1.035) Urine Protein (Negative) Urine Glucose (UA) (Negative) Urine Ketones (Negative) Urine Blood (Negative) Urine Nitrite (Negative) Urine Bilirubin (Negative) Urine Urobilinogen (<2.0) mg/dL Ur Leukocyte Esterase (Negative) Urine RBC (0-5) /hpf Urine WBC (0-5) /hpf Ur Squamous Epith Cells (0-4) /hpf Hyaline Casts (0-2) /lpf Urine Mucus (None) /hpf Salicylates mg/dL Urine Opiates Screen Not Detected (NotDetected) Ur Oxycodone Screen Not Detected (NotDetected) Urine Methadone Screen Detected H (NotDetected) Acetaminophen ug/mL Ur Barbiturates Screen Not Detected (NotDetected) U Tricyclic Antidepress Not Detected (NotDetected) Ur Phencyclidine Scrn Not Detected (NotDetected) Ur Amphetamines Screen Not Detected (NotDetected) U Methamphetamines Scrn Not Detected (NotDetected) U Benzodiazepines Scrn Not Detected (NotDetected) Urine Cocaine Screen Not Detected (NotDetected) U Marijuana (THC) Screen Detected H (NotDetected) Influenza Type A (PCR) Not Detected (Not Detectd) Influenza Type B (PCR) Not Detected (Not Detectd) RSV (PCR) Not Detected (Not Detectd) SARS-CoV-2 (PCR) Not Detected (Not Detectd) 01/05/24 Range/Units 11:46 WBC (3.8-10.6) k/uL RBC (3.80-5.40) m/uL Hgb (11.4-16.0) gm/dL Hct (34.0-46.0) % MCV (80.0-100.0) fL MCH (25.0-35.0) pg MCHC (31.0-37.0) g/dL RDW (11.5-15.5) % Plt Count (150-450) k/uL MPV Neutrophils % % Lymphocytes % % Monocytes % % Eosinophils % % Basophils % % Neutrophils # (1.3-7.7) k/uL Lymphocytes # (1.0-4.8) k/uL Monocytes # (0-1.0) k/uL Eosinophils # (0-0.7) k/uL Basophils # (0-0.2) k/uL Sodium (137-145) mmol/L Potassium (3.5-5.1) mmol/L Chloride (98-107) mmol/L Carbon Dioxide (22-30) mmol/L Anion Gap mmol/L BUN (7-17) mg/dL Creatinine (0.52-1.04) mg/dL Est GFR (CKD-EPI)AfAm (>60 ml/min/1.73 sqM) Est GFR (CKD-EPI)NonAf (>60 ml/min/1.73 sqM) Glucose (74-99) mg/dL POC Glucose (mg/dL) (70-110) mg/dL POC Glu Fishing Vessel Mate ID Calcium (8.4-10.2) mg/dL Total Bilirubin (0.2-1.3) mg/dL AST (14-36) U/L ALT (4-34) U/L Alkaline Phosphatase (38-126) U/L Troponin I (0.000-0.034) ng/mL Total Protein (6.3-8.2) g/dL Albumin (3.5-5.0) g/dL Urine Color Light Yellow Urine Appearance Clear (Clear) Urine pH 6.0 (5.0-8.0) Ur Specific [place] 1.019 (1.001-1.035) Urine Protein Trace H (Negative) Urine Glucose (UA) Negative (Negative) Urine Ketones Negative (Negative) Urine Blood Trace H (Negative) Urine Nitrite Negative (Negative) Urine Bilirubin Negative (Negative) Urine Urobilinogen <2.0 (<2.0) mg/dL Ur Leukocyte Esterase Small H (Negative) Urine RBC 27 H (0-5) /hpf Urine WBC 12 H (0-5) /hpf Ur Squamous Epith Cells <1 (0-4) /hpf Hyaline Casts 4 H (0-2) /lpf Urine Mucus Rare H (None) /hpf Salicylates mg/dL Urine Opiates Screen (NotDetected) Ur Oxycodone Screen (NotDetected) Urine Methadone Screen (NotDetected) Acetaminophen ug/mL Ur Barbiturates Screen (NotDetected) U Tricyclic Antidepress (NotDetected) Ur Phencyclidine Scrn (NotDetected) Ur Amphetamines Screen (NotDetected) U Methamphetamines Scrn (NotDetected) U Benzodiazepines Scrn (NotDetected) Urine Cocaine Screen (NotDetected) U Marijuana (THC) Screen (NotDetected) Influenza Type A (PCR) (Not Detectd) Influenza Type B (PCR) (Not Detectd) RSV (PCR) (Not Detectd) SARS-CoV-2 (PCR) (Not Detectd) Disposition Clinical Impression: Altered mental status, Opiate overdose, Urinary tract infection Disposition: ADMITTED IP TO THIS HOSP Time of Disposition: 14:37
[2024-01-05] MEDS: NALOXONE 0.4 MG/ML 1 ML VIAL IVP STA (11:21)
[2024-01-05] MEDS: SODIUM CHLORIDE 0.9% 500 ML 500 ML IV ONE (11:24)
[2024-01-05 11:35] LABS: Glucose,Whole Blood 77 mg/dL (70-110)
[2024-01-05 12:00] LABS: Appearance,Urine Clear (Clear); Bilirubin,Urine Negative (Negative); Blood,Urine Trace (Negative); Color,Urine Light Yellow; Glucose,Urine (UA) Negative (Negative); Hyaline Casts,Urine 4 /lpf (0-2); Ketones,Urine Negative (Negative); Leukocyte Esterase,Urine Small (Negative); Mucus,Urine Rare /hpf; Nitrite,Urine Negative (Negative); Protein,Urine Trace (Negative); RBC,Urine 27 /hpf (0-5); Specific Gravity,Urine 1.019 (1.001-1.035); Squamous Epithelial Cell,Urine <1 /hpf (0-4); Urobilinogen,Urine <2.0 mg/dL (<2.0); WBC,Urine 12 /hpf (0-5)
[2024-01-05 12:05] LABS: Basophils % (A) 0 %; Eosinophils # (A) 0.1 k/uL (0-0.7); Eosinophils % (A) 1 %; HCT 39.3 % (34.0-46.0); Lymphocytes # (A) 1.5 k/uL (1.0-4.8); Lymphocytes % (A) 16 %; MCH 29.6 pg (25.0-35.0); MCHC 30.5 g/dL (31.0-37.0); MCV 96.9 fL (80.0-100.0); Mean Platelet Volume 7.2; Monocytes # (A) 0.5 k/uL (0-1.0); Monocytes % (A) 5 %; Neutrophils # (A) 7.5 k/uL (1.3-7.7); Neutrophils % (A) 77 %; Platelet Count 307 k/uL (150-450); RBC 4.05 m/uL (3.80-5.40); RDW 12.8 % (11.5-15.5); WBC 9.7 k/uL (3.8-10.6)
[2024-01-05 12:08] LABS: ALT 16 U/L (4-34); Acetaminophen <10.0 ug/mL; African American GFR (CKD) 52 (>60 ml/min/1.73 sqM); Anion Gap 6 mmol/L; Blood Urea Nitrogen 23 mg/dL (7-17); Carbon Dioxide 26 mmol/L (22-30); Chloride 106 mmol/L (98-107); Glucose 83 mg/dL (74-99); Non-African American GFR(CKD) 46 (>60 ml/min/1.73 sqM); Salicylate <1.0 mg/dL; Sodium 138 mmol/L (137-145); Total Bilirubin 0.6 mg/dL (0.2-1.3); Total Protein 7.3 g/dL (6.3-8.2)
--- NOTE | 2024-01-05 12:13 | XR ---
EXAMINATION TYPE: XR chest 2V DATE OF EXAM: 01/05/2024 COMPARISON: 08/09/2021 HISTORY: Chest pain TECHNIQUE: Frontal and lateral views of the chest are obtained. FINDINGS: There is no focal air space opacity. No evidence for pneumothorax. No pleural effusion. The cardiac silhouette size is within normal limits. The osseous structures are grossly intact. IMPRESSION: 1. No acute cardiopulmonary process.
[2024-01-05 12:18] LABS: AST 44 U/L (14-36); Alkaline Phosphatase 108 U/L (38-126); Calcium 8.8 mg/dL (8.4-10.2); Potassium 5.4 mmol/L (3.5-5.1)
[2024-01-05 12:25] LABS: Amphetamine Screen,Urine Not Detected (NotDetected); Barbiturate Screen,Urine Not Detected (NotDetected); Benzodiazepines Screen,Urine Not Detected (NotDetected); Cocaine Screen,Urine Not Detected (NotDetected); Methadone Screen, Urine Detected (NotDetected); Opiate Screen,Urine Not Detected (NotDetected); Oxycodone Screen, Urine Not Detected (NotDetected); Phencyclidine Screen,Urine Not Detected (NotDetected); Tricyclic Antidepressant,Urine Not Detected (NotDetected); Urn Cannabinoid Scrn Detected (NotDetected)
[2024-01-05] MEDS: SODIUM CHLORIDE 0.9% 1,000 ML IV ONE (15:11)
[2024-01-05] MEDS: cefTRIAXone IN SWFI 1,000 MG/10 ML SYRINGE IVP STA (15:11)
[2024-01-05] MEDS ORDERED: ACETAMINOPHEN TAB 325 MG TAB PO PRN (17:06)
[2024-01-05] MEDS: SODIUM CHLORIDE 0.9% 1,000 ML IV SCH (17:24)
--- NOTE | 2024-01-05 17:25 | P.HPIM ---
History of Present Illness H&P Date: 01/05/24 48 year old F with PMH of opiate abuse maintained on Methadone over the past 5 years, history of nephrolithiasis follows Dr. Green, CKD presents to the ED for altered mental status. Patient is lethargic but easily arrousable, she has no complaints, majory of history is obtained from her mother at bedside. Mother reports patient has episodes of lethargy, almost appearing "high" at times over the past year. She was told her symptoms were related to her kidneys. She was especially difficult to wake up this morning which prompted family to call EMS. Patient has been seeing Dr. Green in the outpatient setting for a kidney stone. In the ED she underwent extensive evaluation. BP 88/53, HR 83, RR 18, T101.2F, 94% on RA. O2 saturation as low as 88% on RA. CBC showed MCHC 30.5. CMP showed potassium of 5.4, BUN 23, creatinine 1.37, AST 44. Troponin less than 0.012. [id number] glucose 77. Urinalysis small leukocyte esterase with 12 WBCs. Salicylate and acetaminophen level negative. UDS positive for methadone and THC. Influenza, RSV, COVID-19 negative. EKG sinus rhythm. Chest x-ray unremarkable. Patient is admitted for further workup and management. General: lethargic but easily arrousable, no distress, appears at stated age Derm: warm, dry Head: atraumatic, normocephalic, symmetric Eyes: EOMI, no lid lag, anicteric sclera Mouth: no lip lesion, mucus membranes moist Cardiovascular: S1S2 reg, no murmur Lungs: CTA bilateral, no rhonchi, no rales , no accessory muscle use GI: Soft, nontender to palpation Ext: no gross muscle atrophy, no edema, no contractures Neuro: no focal neuro deficits Psych: Alert, oriented, appropriate affect Based on my assessment of this patient, this patient meets a high complexity level of care. Patient has an acute diagnosis of toxic metabolic encephalopathy that poses a threat to life or bodily function. Acute metabolic encephalopathy: Multifactorial. Polysubstance (Gabapentin, Trazodone, Methadone). Obtain CT head. Ammonia, B12, Folate, TSH. Advanced neurochecks. Fall precautions. Telemetry monitoring. Fever possibly related to UTI: Does not meet sepsis criteria. Start Rocephin 2g IV QD. Follow UCx and BCx. Hyperkalemia: Hemolyzed. Repeat BMP tomorrow. Acute kidney injury: NS at 100 cc/hr. Obtain renal and bladder US. Chronic conditions: Opiate abuse maintained on Methadone over the past 5 years, history of nephrolithiasis follows Dr. Green, CKD CODE STATUS: FULL CODE DVT Prophylaxis: Heparin SQ GI Prophylaxis: Designated medical POA if patient is not able to make medical decisions for themselves: Mother I have reviewed the following vocational rehab consultant notes: ED note. I have reviewed the results of the following tests: As above. I have ordered the following tests: As above. I have discussed the care of this patient with the following independent historian: Family as bedside. I have independently interpreted the following test below: I have discussed the management of this patient with the following physician: Past Medical History Past Medical History: Hypertension, Renal Disease Additional Past Medical History / Comment(s): History of opioid addiction. She was addicted to Vicodin for 10 years but has been on Suboxone since 2009. She was recently started on methadone when she was admitted to [facility]. History of Any Multi-Drug Resistant Organisms: None Reported Date of last positivie culture/infection: December 2020 MDRO Source:: intestine Past Surgical History: Back Surgery, Orthopedic Surgery Additional Past Surgical History / Comment(s): Lithotripsy, back surgery, craniotomy due to brain swelling Past Anesthesia/Blood Transfusion Reactions: No Reported Reaction Past Psychological History: Anxiety, Bipolar, Depression Smoking Status: Current some day smoker Past Alcohol Use History: None Reported Past Drug Use History: Marijuana, Opiates - Past Family History Father Family Medical History: Deep Vein Thrombosis (DVT) Additional Family Medical History / Comment(s): Heart surgery. Mother History Unknown: Yes Family Medical History: Renal Disease Medications and Allergies Home Medications Medication Instructions Recorded Confirmed Type Methadone HCl [Methadone Intensol] 125 mg PO DAILY 06/15/21 01/05/24 History Cariprazine HCl [Vraylar] 3 mg PO HS 01/05/24 01/05/24 History Citalopram Hydrobromide [CeleXA] 20 mg PO HS 01/05/24 01/05/24 History Famotidine 40 mg PO DAILY PRN 01/05/24 01/05/24 History Gabapentin 800 mg PO TID 01/05/24 01/05/24 History Ibuprofen [Motrin] 600 mg PO TID PRN 01/05/24 01/05/24 History Lisinopril-Hctz 10-12.5 mg 1 tab PO DAILY 01/05/24 01/05/24 History [Zestoretic 10-12.5] hydrOXYzine pamoate [Vistaril] 50 mg PO BID PRN 01/05/24 01/05/24 History traZODone HCL [Desyrel] 100 mg PO BID 01/05/24 01/05/24 History Allergies Allergy/AdvReac Type Severity Reaction Status Date / Time acetaminophen [From Tylenol] AdvReac Nausea & Verified 01/05/24 12:56 Vomiting/"Liver shut down" codeine AdvReac Nausea & Verified 01/05/24 12:56 Vomiting/"Liver shut down" metformin AdvReac Nausea & Verified 01/05/24 12:56 Vomiting & Diarrhea Physical Exam Vitals: Vital Signs Temp Pulse Resp BP Pulse Ox 01/05/24 15:12 67 18 100/64 94 L 01/05/24 12:35 98.6 F 73 18 137/50 94 L 01/05/24 11:21 16 01/05/24 11:20 98 01/05/24 11:12 74 16 91/62 88 L 01/05/24 11:01 101.2 F H 83 18 83/53 94 L Intake and Output 01/05/24 01/05/24 01/05/24 06:59 14:59 22:59 Output Total 200 Balance -200 Output: Urine 200 Straight 200 Other: Weight 72.575 kg Results CBC & Chem 7: 01/05/24 11:19 01/05/24 11:19 Labs: Abnormal Lab Results - Last 24 Hours (Table) 01/05/24 01/05/24 01/05/24 Range/Units 11:19 11:19 11:46 MCHC 30.5 L (31.0-37.0) g/dL Potassium 5.4 H (3.5-5.1) mmol/L BUN 23 H (7-17) mg/dL Creatinine 1.37 H (0.52-1.04) mg/dL AST 44 H (14-36) U/L Urine Protein (Negative) Urine Blood (Negative) Ur Leukocyte Esterase (Negative) Urine RBC (0-5) /hpf Urine WBC (0-5) /hpf Hyaline Casts (0-2) /lpf Urine Mucus (None) /hpf Urine Methadone Screen Detected H (NotDetected) U Marijuana (THC) Screen Detected H (NotDetected) 01/05/24 Range/Units 11:46 MCHC (31.0-37.0) g/dL Potassium (3.5-5.1) mmol/L BUN (7-17) mg/dL Creatinine (0.52-1.04) mg/dL AST (14-36) U/L Urine Protein Trace H (Negative) Urine Blood Trace H (Negative) Ur Leukocyte Esterase Small H (Negative) Urine RBC 27 H (0-5) /hpf Urine WBC 12 H (0-5) /hpf Hyaline Casts 4 H (0-2) /lpf Urine Mucus Rare H (None) /hpf Urine Methadone Screen (NotDetected) U Marijuana (THC) Screen (NotDetected)
--- NOTE | 2024-01-05 18:07 | US ---
EXAMINATION TYPE: US renals and bladder DATE OF EXAM: 01/05/2024 COMPARISON: NONE CLINICAL INDICATION: Female, 48 years old with history of WEI; WEI. EXAM MEASUREMENTS: Right Kidney: 10.1 x 5.8 x 4.8 cm Left Kidney: 11.3 x 4.3 x 5.6 cm Right Kidney: Echogenic focus seen with twinkle artifact at the inf pole measuring 0.8 x 0.7 x 0.7cm. A prominent column of Jay is present. Left Kidney: Small cystic area seen mid pole measuring 0.9 x 1.0 x 0.8cm Bladder: Anterior wall appears irregular with mild thickening up to 4 mm. Bilateral Jets seen: Yes IMPRESSION: 1. No obstructive uropathy. 2. Right renal calculi. 3. Left renal cyst 4. Irregular anterior bladder wall. Consider further evaluation with CT urogram and/or direct visual ization. Correlate with urinalysis for cystitis.
--- NOTE | 2024-01-05 18:33 | CT ---
EXAMINATION TYPE: CT brain wo con CT DLP: 1121 mGycm, Automated exposure control for dose reduction was used. DATE OF EXAM: 01/05/2024 6:02 PM COMPARISON: 08/09/2021. CLINICAL INDICATION:Female, 48 years old with history of AMS, ams TECHNIQUE: Brain: Axial CT images of the brain were obtained with coronal and sagittal reformats created and rev iewed. Contrast used: None. Oral contrast used: None. FINDINGS: Brain: Extra-axial spaces: No abnormal extra-axial fluid collections. Ventricular system: Cavum septum pellucidum. Cerebral parenchyma: No acute intraparenchymal hemorrhage or mass effect. The may-white junction is well differentiated. Cerebellum: Unremarkable. Mass effect: No evidence of midline shift. Intracranial vasculature: unremarkable Soft tissues: Normal. Calvarium/osseous structures: No depressed skull fracture. Postsurgical changes to the anterior skull . Paranasal sinuses and mastoid air cells: Mild scattered paranasal sinus disease. Visualized orbits: Orbital contents are intact. IMPRESSION: No acute intracranial process.
[2024-01-05] MEDS: HEPARIN SODIUM,PORCINE 5,000 UNIT/ML 1 ML VIAL SQ SCH (23:49)
[2024-01-06] MEDS: ONDANSETRON 4 MG/2 ML VIAL IVP PRN (03:26)
[2024-01-06] MEDS: IBUPROFEN 400 MG TAB PO PRN (03:59)
[2024-01-06 06:29] LABS: HGB 11.3 gm/dL (11.4-16.0); Hypochromasia Moderate; MCH 30.5 pg (25.0-35.0); MCHC 30.6 g/dL (31.0-37.0); MCV 99.9 fL (80.0-100.0); Mean Platelet Volume 6.7; Platelet Count 280 k/uL (150-450); RBC 3.71 m/uL (3.80-5.40); RDW 12.7 % (11.5-15.5); WBC 8.5 k/uL (3.8-10.6)
[2024-01-06 06:41] LABS: African American GFR (CKD) >90 (>60 ml/min/1.73 sqM); Anion Gap 7 mmol/L; Blood Urea Nitrogen 16 mg/dL (7-17); Calcium 8.2 mg/dL (8.4-10.2); Carbon Dioxide 26 mmol/L (22-30); Chloride 107 mmol/L (98-107); Glucose 97 mg/dL (74-99); Non-African American GFR(CKD) 82 (>60 ml/min/1.73 sqM); Potassium 4.3 mmol/L (3.5-5.1); Sodium 140 mmol/L (137-145)
[2024-01-06] MEDS: NALOXONE 0.4 MG/ML 1 ML VIAL IVP PRN (06:44)
--- NOTE | 2024-01-06 11:27 | P.PN ---
Subjective Progress Note Date: 01/06/24 48 year old F with PMH of opiate abuse maintained on Methadone over the past 5 years, history of nephrolithiasis follows Dr. Green, CKD presents to the ED for altered mental status. Patient is lethargic but easily arrousable, she has no complaints, majory of history is obtained from her mother at bedside. Mother reports patient has episodes of lethargy, almost appearing "high" at times over the past year. She was told her symptoms were related to her kidneys. She was especially difficult to wake up this morning which prompted family to call EMS. Patient has been seeing Dr. Green in the outpatient setting for a kidney stone. In the ED she underwent extensive evaluation. BP 88/53, HR 83, RR 18, T101.2F, 94% on RA. O2 saturation as low as 88% on RA. CBC showed MCHC 30.5. CMP showed potassium of 5.4, BUN 23, creatinine 1.37, AST 44. Troponin less than 0.012. Igpcq-wj-mhix glucose 77. Urinalysis small leukocyte esterase with 12 WBCs. Salicylate and acetaminophen level negative. UDS positive for methadone and THC. Influenza, RSV, COVID-19 negative. EKG sinus rhythm. Chest x-ray unremarkable. Patient is admitted for further workup and management. 01/05 Patient was seen and examined. Family at bedside. Mentation much improved. Awake and alert. This morning had RR as low as 8, given Narcan and improved. Renal US shows non obstructive nephrolithiasis. CT brain negative for acute changes. Discussed with family, her altered mentation is likely due to a combination of poor renal function and combination of Gabapentin Trazadone and Methadone. Advised to completely discontinue Gabapenting and Trazadone and taper Methadone with her community living specialist. RN reports patient desaturates to 80s on RA. Repeat CXR and D-Dimer is ordered. CBC Hg 11.3. BMP Ca 8.2. Ammonia 21. B12 468 Folate 9.9. TSH 0.199. General: no distress, appears at stated age Derm: warm, dry Head: atraumatic, normocephalic, symmetric Eyes: EOMI, no lid lag, anicteric sclera Mouth: no lip lesion, mucus membranes moist Cardiovascular: S1S2 reg, no murmur Lungs: CTA bilateral, no rhonchi, no rales , no accessory muscle use Ext: no gross muscle atrophy, no edema, no contractures Neuro: no focal neuro deficits Psych: Alert, oriented, appropriate affect Based on my assessment of this patient, this patient meets a high complexity level of care. Patient has an acute diagnosis of toxic metabolic encephalopathy that poses a threat to life or bodily function. Acute hypoxic respiratory failure: Narcan PRN for respiratory depression. Obtain D-Dimer. Obtain CXR. Acute metabolic encephalopathy: Multifactorial. Polysubstance (Gabapentin, Trazodone, Methadone). CT head, Ammonia, B12, Folate unrevealing. Advanced neurochecks. Fall precautions. Telemetry monitoring. Low TSH: Obtain FT4. Fever possibly related to UTI: Does not meet sepsis criteria. Rocephin 2g IV QD. Follow UCx and BCx. Resolved: WEI, HyperK Chronic conditions: Opiate abuse maintained on Methadone over the past 5 years, history of nephrolithiasis follows Dr. Green, CKD CODE STATUS: FULL CODE DVT Prophylaxis: Heparin SQ GI Prophylaxis: Designated medical POA if patient is not able to make medical decisions for themselves: Mother I have reviewed the following professional services consultant notes: I have reviewed the results of the following tests: CBC, BMP, Ammonia, B12, Folate, TSH. I have ordered the following tests: D-Dimer, CXR. I have discussed the care of this patient with the following independent historian: Family as bedside. RN as above. I have independently interpreted the following test below: I have discussed the management of this patient with the following physician: Objective - Vital Signs Vital signs: Vital Signs Temp 98.6 F 01/05/24 12:35 Pulse 87 01/06/24 09:01 Resp 18 01/06/24 09:01 BP 128/73 01/06/24 09:01 Pulse Ox 97 01/06/24 10:56 FiO2 Intake & Output 01/05/24 01/06/24 01/06/24 18:59 06:59 18:59 Intake Total 200 Output Total 200 Balance -200 200 Weight 72.575 kg Intake: Intake, IV Titration 200 Amount Sodium Chloride 0.9% 1, 200 000 ml @ 75 mls/hr IV . [id number] ONE Rx#:[id number] Output: Urine 200 Straight 200 - Labs CBC & Chem 7: 01/06/24 05:28 01/06/24 05:28 Labs: Abnormal Lab Results - Last 24 Hours (Table) 01/05/24 01/05/24 01/05/24 Range/Units 11:19 11:19 11:46 RBC (3.80-5.40) m/uL Hgb (11.4-16.0) gm/dL MCHC 30.5 L (31.0-37.0) g/dL Potassium 5.4 H (3.5-5.1) mmol/L BUN 23 H (7-17) mg/dL Creatinine 1.37 H (0.52-1.04) mg/dL Calcium (8.4-10.2) mg/dL AST 44 H (14-36) U/L TSH (0.350-5.500) UIU/ML Urine Protein (Negative) Urine Blood (Negative) Ur Leukocyte Esterase (Negative) Urine RBC (0-5) /hpf Urine WBC (0-5) /hpf Hyaline Casts (0-2) /lpf Urine Mucus (None) /hpf Urine Methadone Screen Detected H (NotDetected) U Marijuana (THC) Screen Detected H (NotDetected) 01/05/24 01/06/24 01/06/24 Range/Units 11:46 05:28 05:28 RBC 3.71 L (3.80-5.40) m/uL Hgb 11.3 L (11.4-16.0) gm/dL MCHC 30.6 L (31.0-37.0) g/dL Potassium (3.5-5.1) mmol/L BUN (7-17) mg/dL Creatinine (0.52-1.04) mg/dL Calcium (8.4-10.2) mg/dL AST (14-36) U/L TSH 0.199 L (0.350-5.500) UIU/ML Urine Protein Trace H (Negative) Urine Blood Trace H (Negative) Ur Leukocyte Esterase Small H (Negative) Urine RBC 27 H (0-5) /hpf Urine WBC 12 H (0-5) /hpf Hyaline Casts 4 H (0-2) /lpf Urine Mucus Rare H (None) /hpf Urine Methadone Screen (NotDetected) U Marijuana (THC) Screen (NotDetected) 01/06/24 Range/Units 05:28 RBC (3.80-5.40) m/uL Hgb (11.4-16.0) gm/dL MCHC (31.0-37.0) g/dL Potassium (3.5-5.1) mmol/L BUN (7-17) mg/dL Creatinine (0.52-1.04) mg/dL Calcium 8.2 L (8.4-10.2) mg/dL AST (14-36) U/L TSH (0.350-5.500) UIU/ML Urine Protein (Negative) Urine Blood (Negative) Ur Leukocyte Esterase (Negative) Urine RBC (0-5) /hpf Urine WBC (0-5) /hpf Hyaline Casts (0-2) /lpf Urine Mucus (None) /hpf Urine Methadone Screen (NotDetected) U Marijuana (THC) Screen (NotDetected)
--- NOTE | 2024-01-06 11:29 | XR ---
EXAMINATION TYPE: XR chest 1V portable DATE OF EXAM: 01/06/2024 11:16 AM CLINICAL INDICATION:Female, 48 years old with history of hypoxia; COMPARISON: Chest radiographs from 01/05/2024 TECHNIQUE: XR chest 1V portable Frontal view of the chest. FINDINGS: Lungs/Pleura: There is no evidence of pleural effusion, focal consolidation, or pneumothorax. Pulmonary vascularity: Unremarkable. Heart/mediastinum: Cardiomediastinal silhouette is enlarged and stable. Musculoskeletal: No acute osseous pathology. IMPRESSION: Low lung volumes with a generalized hazy appearance which could represent atelectasis versus pulmonar y edema correlate with serum BNP.
[2024-01-06] MEDS: LISINOPRIL-HCTZ 10-12.5 MG 1 EACH TAB PO SCH (22:25)
--- NOTE | 2024-01-07 06:08 | P.DS ---
Providers Date of admission: 01/05/24 14:44 Expected date of discharge: 01/07/24 Attending physician: Tanner Tavares MD Primary care physician: Stated None Hospital Course: 48 year old F with PMH of opiate abuse maintained on Methadone over the past 5 years, history of nephrolithiasis follows Dr. Green, CKD presents to the ED for altered mental status. Patient is lethargic but easily arrousable, she has no complaints, majory of history is obtained from her mother at bedside. Mother reports patient has episodes of lethargy, almost appearing "high" at times over the past year. She was told her symptoms were related to her kidneys. She was especially difficult to wake up this morning which prompted family to call EMS. Patient has been seeing Dr. Green in the outpatient setting for a kidney stone. In the ED she underwent extensive evaluation. BP 88/53, HR 83, RR 18, T101.2F, 94% on RA. O2 saturation as low as 88% on RA. CBC showed MCHC 30.5. CMP showed potassium of 5.4, BUN 23, creatinine 1.37, AST 44. Troponin less than 0.012. Ixeag-if-txve glucose 77. Urinalysis small leukocyte esterase with 12 WBCs. Salicylate and acetaminophen level negative. UDS positive for methadone and THC. Influenza, RSV, COVID-19 negative. EKG sinus rhythm. Chest x-ray unremarkable. Patient is admitted for further workup and management. 01/05 Patient was seen and examined. Family at bedside. Mentation much improved. Awake and alert. This morning had RR as low as 8, given Narcan and improved. Renal US shows non obstructive nephrolithiasis. CT brain negative for acute changes. Discussed with family, her altered mentation is likely due to a combination of poor renal function and combination of Gabapentin Trazadone and Methadone. Advised to completely discontinue Gabapentin and Trazadone and taper Methadone with her senior education specialist. RN reports patient desaturates to 80s on RA. Repeat CXR and D-Dimer is ordered. CBC Hg 11.3. BMP Ca 8.2. Ammonia 21. B12 468 Folate 9.9. TSH 0.199. 01/06 Patient was seen and examined. Mentation improved. Complains of opiate withdrawal. We will give her one dose of Methadone 120 mg. Patient noted to be hypoxic yesterday requiring 2L NC. CXR showed atelectasis. Incentive spirometer ordered. D-Dimer was also negative, low probability of PE. Plans to discharge the patient home today if we are able to wean off the oxygen. Her fever is likely related to atelectasis, her UCx has been negative as well and she will not require any antibiotics on discharge. Prescription for Narcan will be sent to her pharmacy. Discontinue Gabapentin and Trazadone. Follow up with senior education specialist for titration of Methadone. General: no distress, appears at stated age Derm: warm, dry Head: atraumatic, normocephalic, symmetric Eyes: EOMI, no lid lag, anicteric sclera Mouth: no lip lesion, mucus membranes moist Cardiovascular: S1S2 reg, no murmur Lungs: CTA bilateral, no rhonchi, no rales , no accessory muscle use Ext: no gross muscle atrophy, no edema, no contractures Neuro: no focal neuro deficits Psych: Alert, oriented, appropriate affect Discharge Diagnosis: Acute hypoxic respiratory failure due to atelectasis Acute metabolic encephalopathy Low TSH Fever due to atelectasis Resolved: WEI, HyperK Chronic conditions: Opiate abuse maintained on Methadone over the past 5 years, history of nephrolithiasis follows Dr. Green, CKD This complex discharge took 35 minutes to complete. Patient Condition at Discharge: Stable Plan - Discharge Summary Discharge Rx Participant: No New Discharge Prescriptions: New Naloxone [Narcan] 2 mg IM ONCE PRN #2 each PRN Reason: Opioid Reversal Continue Ibuprofen [Motrin] 600 mg PO TID PRN PRN Reason: Pain Famotidine 40 mg PO DAILY PRN PRN Reason: Heartburn Citalopram Hydrobromide [CeleXA] 20 mg PO HS Lisinopril-Hctz 10-12.5 mg [Zestoretic 10-12.5] 1 tab PO DAILY Cariprazine HCl [Vraylar] 3 mg PO HS Methadone HCl [Methadone Intensol] 125 mg PO DAILY Discontinued hydrOXYzine pamoate [Vistaril] 50 mg PO BID PRN PRN Reason: Anxiety traZODone HCL [Desyrel] 100 mg PO BID Gabapentin 800 mg PO TID Discharge Medication List Methadone HCl [Methadone Intensol] 125 mg PO DAILY 06/15/21 [History] Cariprazine HCl [Vraylar] 3 mg PO HS 01/05/24 [History] Citalopram Hydrobromide [CeleXA] 20 mg PO HS 01/05/24 [History] Famotidine 40 mg PO DAILY PRN 01/05/24 [History] Ibuprofen [Motrin] 600 mg PO TID PRN 01/05/24 [History] Lisinopril-Hctz 10-12.5 mg [Zestoretic 10-12.5] 1 tab PO DAILY 01/05/24 [History] Naloxone [Narcan] 2 mg IM ONCE PRN #2 each 01/07/24 [Rx] Follow up Appointment(s)/Referral(s): None,Stated [Primary Care Provider] - 1-2 days Activity/Diet/Wound Care/Special Instructions: Follow up with your information assurance specialist for titration down on Methadone. Discharge Disposition: HOME SELF-CARE
[2024-01-07] MEDS: METHADONE 10 MG TAB PO STA (06:14)
[2024-01-07 08:33] VITALS: RESP 16; TEMP 99.1
[2024-01-07 11:16] VITALS: BP 157/85; PULSE 84
== END 2024-01-07 12:38 | disposition home or self-care (01) | DRG 52 ==
LOC: EC 10:55 → 6NMEDSUR 14:43 → OBSVTOIN 14:44 → 6NMEDSUR 19:57 → 5NMEDONC 01-06 06:52
PROVIDERS: ADMIT Student in an Organized Health Care Education/Training Program; ATTEND Student in an Organized Health Care Education/Training Program
DX: G92.8 Other toxic encephalopathy (principal); E87.5 Hyperkalemia; F17.200 Nicotine dependence, unspecified, uncomplicated; F29 Unspecified psychosis not due to a substance or known physiological condition; F31.9 Bipolar disorder, unspecified; F41.9 Anxiety disorder, unspecified; F11.23 Opioid dependence with withdrawal; G93.89 Other specified disorders of brain; I12.9 Hypertensive chronic kidney disease with stage 1 through stage 4 chronic kidney disease, or unspecified chronic kidney disease; G93.41 Metabolic encephalopathy; N39.0 Urinary tract infection, site not specified; Z11.52 Encounter for screening for COVID-19; J96.01 Acute respiratory failure with hypoxia; J98.11 Atelectasis; N18.9 Chronic kidney disease, unspecified; N17.9 Acute kidney failure, unspecified; N20.0 Calculus of kidney; T40.601A Poisoning by unspecified narcotics, accidental (unintentional), initial encounter; Z79.899 Other long term (current) drug therapy; Z87.442 Personal history of urinary calculi; Z88.6 Allergy status to analgesic agent; Z88.5 Allergy status to narcotic agent; Z88.8 Allergy status to other drugs, medicaments and biological substances
CPT/HCPCS: 36415; 51701; 70450; 71045; 71046; 76770; 80048; 80053; 80143; 80179; 80306; 81001; 82140; 82607; 82746; 84439; 84443; 84484; 85025; 85027; 85379; 87040; 87086; 87636; 93005; 94760; 96361; 96365; 96366; 96372; 96375; 96376; 99285

== ENCOUNTER 2024-04-03 13:16 | Emergency (ER) | payer OTHER ==
--- NOTE | 2024-04-03 13:32 | ED ---
General Adult HPI - General Chief complaint: Fall Stated complaint: fall Time Seen by Provider: 04/03/24 13:19 Source: EMS Mode of arrival: EMS Limitations: no limitations - History of Present Illness Initial comments: Dictation was produced using [employer] dictation software. please excuse any grammatical, word or spelling errors. Chief Complaint: 48-year-old female presents after fall History of Present Illness: Patient is a 48-year-old female brought in by EMS after fall. Patient allegedly lost her footing going down a flight of stairs. States that flight was approximately 20 steps of carpeted stairs. Patient has history of chronic back issues. She states that she has had fractured her back in the past. Patient complaining of whole back pain. She is recovering addict and refusing opiate medications. Denies any extremity issues. Denies any numbness ting paresthesias to the extremities. No saddle anesthesia. No bowel or bladder control issues. The ROS documented in this emergency department record has been reviewed and confirmed by me. Those systems with pertinent positive or negative responses have been documented in the HPI. All other systems are other negative and/or noncontributory. - Related Data Home Medications Medication Instructions Recorded Confirmed Methadone HCl [Methadone Intensol] 125 mg PO DAILY 06/15/21 01/05/24 Cariprazine HCl [Vraylar] 3 mg PO HS 01/05/24 01/05/24 Citalopram Hydrobromide [CeleXA] 20 mg PO HS 01/05/24 01/05/24 Famotidine 40 mg PO DAILY PRN 01/05/24 01/05/24 Ibuprofen [Motrin] 600 mg PO TID PRN 01/05/24 01/05/24 Lisinopril-Hctz 10-12.5 mg 1 tab PO DAILY 01/05/24 01/05/24 [Zestoretic 10-12.5] Previous Rx's Medication Instructions Recorded Naloxone [Narcan] 2 mg IM ONCE PRN #2 each 01/07/24 Allergies Allergy/AdvReac Type Severity Reaction Status Date / Time acetaminophen [From Tylenol] AdvReac Nausea & Verified 01/05/24 12:56 Vomiting/"Liver shut down" codeine AdvReac Nausea & Verified 01/05/24 12:56 Vomiting/"Liver shut down" metformin AdvReac Nausea & Verified 01/05/24 12:56 Vomiting & Diarrhea Review of Systems ROS Statement: Those systems with pertinent positive or pertinent negative responses have been documented in the HPI. ROS Other: All systems not noted in ROS Statement are negative. Past Medical History Past Medical History: Hypertension, Renal Disease Additional Past Medical History / Comment(s): History of opioid addiction. She was addicted to Vicodin for 10 years but has been on Suboxone since 2009. She was recently started on methadone when she was admitted to [place]. History of Any Multi-Drug Resistant Organisms: None Reported Date of last positivie culture/infection: December 2020 MDRO Source:: intestine Past Surgical History: Back Surgery, Orthopedic Surgery Additional Past Surgical History / Comment(s): Lithotripsy, back surgery, craniotomy due to brain swelling Past Anesthesia/Blood Transfusion Reactions: No Reported Reaction Past Psychological History: Anxiety, Bipolar, Depression Smoking Status: Current some day smoker Past Alcohol Use History: None Reported Past Drug Use History: Marijuana, Opiates - Past Family History Father Family Medical History: Deep Vein Thrombosis (DVT) Additional Family Medical History / Comment(s): Heart surgery. Mother History Unknown: Yes Family Medical History: Renal Disease General Exam - General Exam Comments Initial Comments: PHYSICAL EXAM: General Impression: Alert and oriented x3, not in acute distress c-collar in place HEENT: Normocephalic atraumatic, extra-ocular movements intact, pupils equal and reactive to light bilaterally, mucous membranes moist. Cardiovascular: Heart regular rate and rhythm Chest: Able to complete full sentences, no retractions, no tachypnea Abdomen: abdomen soft, non-tender, non-distended, no organomegaly Musculoskeletal: Pulses present and equal in all extremities, no peripheral edema Motor: no focal deficits noted Neurological: CN II-XII grossly intact, no focal motor or sensory deficits noted Skin: Intact with no visualized rashes Psych: Normal affect and mood Limitations: no limitations Course Vital Signs 04/03/24 04/03/24 13:19 14:51 Temperature 99.4 F Pulse Rate 84 57 L Respiratory 18 18 Rate Blood Pressure 164/102 139/100 O2 Sat by Pulse 95 96 Oximetry Medical Decision Making - Medical Decision Making Was pt. sent in by a medical professional or institution (, PA, [employer], urgent care, hospital, or assisted...) When possible be specific @ -No Did you speak to anyone other than the patient for history (EMS, parent, family, police, friend...)? What history was obtained from this source @ -No Did you review nursing and triage notes (agree or disagree)? Why? @ -I reviewed and agree with nursing and triage notes Were old charts reviewed (outside hosp., previous admission, EMS record, old EKG, old radiological studies, urgent care reports/EKG's, assisted records)? Report findings @ -No old charts were reviewed Differential Diagnosis (chest pain, altered mental status, abdominal pain women, abdominal pain men, vaginal bleeding, musculoskeletal, weakness, fever, dyspnea, syncope, headache, dizziness, GI bleed, back pain, seizure, CVA, palpatations, mental health)? @ -Compression fracture, transverse process fracture, spinous process fracture, equina EKG interpreted by me (3pts min.). @ -None done X-rays interpreted by me (1pt min.). @ -None done CT interpreted by me (1pt min.). @ -see below U/S interpreted by me (1pt. min.). @ -None done What testing was considered but not performed or refused? (CT, X-rays, U/S, labs)? Why? @ -None What meds were considered but not given or refused? Why? @ -None Was smoking cessation discussed for >3mins.? @ -No Were there social determinants of health that impacted care today? How? (Homelessness, low income, unemployed, alcoholism, drug addiction, transportation, low edu. Level, literacy, decrease access to med. care, [facility], rehab)? @ -No Was there de-escalation of care discussed even if they declined (Discuss DNR or withdrawal of care, Hospice)? DNR status @ -No What co-morbidities impacted this encounter? (DM, HTN, Smoking, COPD, CAD, Cancer, CVA, ARF, Chemo, Hep., AIDS, mental health diagnosis, sleep apnea, morbid obesity)? @ -None Was patient admitted / discharged? Hospital course, mention meds given and route, prescriptions, significant lab abnormalities, going to OR and other pertinent info. @ -38-year-old female presents to the emergency department after trip and fall down the stairs. Vital signs stable. Patient complaining of back pain. Patient given Toradol. She was offered opiates however refused. Patient studies obtained. CT scan of the head and C-spine shows no acute processes. Scan of the thoracic and lumbar spine shows acute transverse fracture through the T4 spinous process T3 and T4 endplate history of indeterminate age. Patient offered hospital admission for pain control. Patient would prefer to be discharged. Did you discuss the management of the patient with other professionals (professionals i.e. , PA, [employer], lab, RT, psych nurse, director of social work, environmental health and safety leader, teacher, information security officer, nurse case manager)? Give summary @ -No Was critical care preformed (if so, how long)? @ -No Undiagnosed new problem with uncertain prognosis? @ -No Drug Therapy requiring intensive monitoring for toxicity (Heparin, Nitro, Insulin, Cardizem)? @ -No Were any procedures done? @ -No Diagnosis/symptom? Acute, or Chronic, or Acute on Chronic? Uncomplicated (without systemic symptoms) or Complicated (systemic symptoms)? @ -Spinous process fracture Side effects of treatment? @ -No Exacerbation, Progression, or Severe Exacerbation? @ -No Poses a threat to life or bodily function? How? (Chest pain, USA, NC, pneumonia, PE, COPD, DKA, ARF, appy, cholecystitis, CVA, Diverticulitis, Homicidal, Suicidal, threat to staff... and all critical care pts) @ -yes Disposition Clinical Impression: Spinous process fracture Disposition: HOME SELF-CARE Condition: Fair Instructions (If sedation given, give patient instructions): Spinous Process Fracture (ED) Is patient prescribed a controlled substance at d/c from ED?: No Referrals: None,Stated [Primary Care Provider] - 1-2 days Time of Disposition: 15:50
[2024-04-03] MEDS: KETOROLAC 15 MG/ML 1 ML VIAL IVP STA ×2 (13:37→16:02)
--- NOTE | 2024-04-03 15:19 | CT ---
EXAMINATION TYPE: CT brain jude sears con DATE OF EXAM: 04/03/2024 COMPARISON: 01/05/2024 HISTORY: 48-year-old female with pain after FALL BACKWARDS DOWN 2 FLIGHTS OF STAIRS, HEMATOMA ON FORE HEAD CT DLP: 3466.1 mGycm Automated exposure control for dose reduction was used. Technique: Examination of the head was done in axial plane without intravenous contrast. Coronal and sagittal reconstructions performed. CT of the cervical spine was obtained in axial plane without intravenous injection of contrast mater ial. Coronal and sagittal reformatted images were obtained from the axial views for evaluation of f ractures, spinal alignment and canal. FINDINGS: Head: There is no evidence of acute intracranial hemorrhage, acute ischemic changes, mass, mass-effect, or extra-axial fluid collection. There is no effacement of cerebral sulci or basal subarachnoid cister ns. There is no hydrocephalus. There is no midline shift. Devi-white matter distinction is preserv ed. Normal variation persistent CSP. Some hypodensity in the inferior left temporal lobe could be due to prominent skull base artifact or encephalomalacia relating to prior injury. Previous right frontal margarito hole. There is a moderate-sized anterior left frontal scalp hematoma. No acute calvarial fracture is seen. Paranasal sinuses and mastoid air cells well pneumatized. Orbits and globes are intact. Cervical spine: The patient is edentulous. The alignment of the cervical spine is normal on coronal and reformatted i mages. There is no cranial vertebral abnormality. Fracture of the cervical spine is not seen. Reversa l of the normal cervical lordosis. Detailed assessment limited due to artifact from body habitus. Sagittal and coronal reformatted images confirm above findings. COMBINED IMPRESSION: 1. Moderate-sized anterior left frontal scalp hematoma. No acute intracranial abnormality seen. 2. No acute fracture or malalignment of the cervical spine.
--- NOTE | 2024-04-03 15:34 | CT ---
EXAMINATION TYPE: CT thor lumbar spine wo con DATE OF EXAM: 04/03/2024 COMPARISON: None HISTORY: 48-year-old female pain after FALL BACKWARDS DOWN 2 FLIGHTS OF STAIRS, HEMATOMA ON FOREHEAD TECHNIQUE: Contiguous axial scanning of the thoracic and lumbar spine without IV contrast. Coronal an d sagittal reconstructions performed. CT DLP: 3466.1 mGycm Automated exposure control for dose reduction was used. FINDINGS: There is previous T6 compression deformity with vertebroplasty change. Inferior endplate deformity of T7 has a chronic appearance with minimal anterior wedging here. T5 mild anterior wedging also has a chronic appearance. Endplate deformities of both the T3 and T4 are age indeterminate. 25% overall height loss and questio nable minimal paravertebral soft tissue swelling. There is a transverse fracture through the T4 spinous process, sagittal image 39 and 40 and coronal i mage 51. Degenerative changes of bilateral SI joints. Numerous bilateral nonobstructive renal calculi measuring up to 7 mm. AP atelectasis throughout the l ungs. No other vertebral compression collapse or malalignment. IMPRESSION: 1. PREVIOUS T6 VERTEBROPLASTY. 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 T5 ANTE RIOR WEDGE DEFORMITY IS SUSPECTED CHRONIC WELL. 2. HOWEVER, ENDPLATE DEFORMITIES OF BOTH T3 AND T4 ARE AGE INDETERMINATE WITH 25% OVERALL HEIGHT LOSS . A TRANSVERSE FRACTURE THROUGH THE T4 SPINOUS PROCESS APPEARS ACUTE SO THESE ENDPLATE INJURIES MAY B E ACUTE WELL. CORRELATE FOR ANY AVAILABLE OUTSIDE PRIORS FOR COMPARISON.
[2024-04-03 16:10] VITALS: BP 131/75; PULSE 86; RESP 16; TEMP 98.4
== END 2024-04-03 16:10 | disposition home or self-care (01) ==
LOC: EC 13:16
DX: S22.049A Unspecified fracture of fourth thoracic vertebra, initial encounter for closed fracture (principal); S32.039A Unspecified fracture of third lumbar vertebra, initial encounter for closed fracture; F17.200 Nicotine dependence, unspecified, uncomplicated; Z88.5 Allergy status to narcotic agent; Z88.6 Allergy status to analgesic agent; W10.9XXA Fall (on) (from) unspecified stairs and steps, initial encounter
CPT/HCPCS: 72128; 72125; 72131; 70450; 99284; 96374; 96376; J1885